=== PATIENT | male | born 1930 | race Caucasian/White ===

== ENCOUNTER → 2016-06-25 | Outpatient (CLI) | payer MEDICARE, BC ==
--- NOTE | 2016-06-25 14:40 | CT ---
"EXAMINATION TYPE: CT brain wo con DATE OF EXAM: 06/25/2016 2:33 PM COMPARISON: NONE HISTORY: F/U Intracerebral Hemorrhage CT DLP: 1029.9 mGycm Findings: Previous exam is performed at outside institution. There is no exam available for comparison at this institution. There is a 2.4 cm intraparenchymal hemorrhage involving the left frontal lobe. Encephalomalacia is se en in the region. Moderate generalized degenerative change and periventricular and white matter areas of low attenuation are nonspecific but most typical remote microvascular ischemia. No midline shift. Calvarium intact. IMPRESSION: 1. There is a 2.4 cm intraparenchymal acute hemorrhage in left frontal lobe. No prior exams are avail able at this institution for comparison. No midline shift. A Red message has been communicated to Lj Hager DO via the sofatutor | Critical Result s ystem on 06/25/2016 2:37 PM, Message ID [id number]."
== END | disposition home or self-care (01) ==
LOC: RADCTMAIN 13:54
PROVIDERS: ATTEND Family Medicine
DX: I61.9 Nontraumatic intracerebral hemorrhage, unspecified (principal)
CPT/HCPCS: 70450

== ENCOUNTER 2016-07-04 19:22 | Inpatient (IN) | payer MEDICARE, BC ==
[2016-07-04] MEDS ORDERED: SODIUM CHLORIDE 0.9% 1,000 ML IV STA (19:28)
--- NOTE | 2016-07-04 19:32 | ED ---
Chest Pain HPI - General Stated Complaint: chest pain Time Seen by Provider: 07/04/16 19:22 Source: patient, EMS, RN notes reviewed, old records reviewed Mode of arrival: EMS - History of Present Illness Initial Comments: This 86-year-old male with a history of CVA and hypertension who apparently had chest pain prior to admission the intermediate where he resides. He was given 2 subungual nitroglycerin and by time EMS showed up. No complaints of pain. Patient is most part nonverbal but apparently he did a chest clenching maneuver. He does have residual right upper and lower extremity weakness from his stroke. Also per paramedics the patient does have a Moss the urine is very concentrated and does have a followed are. MD Complaint: chest pain - Related Data Home Medications Medication Instructions Recorded Confirmed Acetaminophen Oral Susp [Tylenol 640 mg PEG/G-TUBE Q6H PRN 07/04/16 07/04/16 Oral Susp] Albuterol Sulfate [Accuneb] 0.63 mg INHALATION RT-Q6H 07/04/16 07/04/16 Bisacodyl [Dulcolax] 10 mg RECTAL Q72H PRN 07/04/16 07/04/16 Calcium Carbonate [Calcium] 600 mg PEG/G-TUBE DAILY 07/04/16 07/04/16 Cholecalciferol [Vitamin D3] 800 unit PEG/G-TUBE DAILY 07/04/16 07/04/16 Magnesium Hydroxide [Milk of 2,400 mg PEG/G-TUBE DAILY PRN 07/04/16 07/04/16 Magnesia] Metoprolol Tartrate [Lopressor] 50 mg PEG/G-TUBE BID 07/04/16 07/04/16 Pantoprazole Sodium [Protonix] 40 mg PEG/G-TUBE DAILY 07/04/16 07/04/16 Sennosides/Docusate Sodium 1 tab PEG/G-TUBE DAILY 07/04/16 07/04/16 [Docusate Sodium-Senna Tablet] Sucralfate [Carafate] 1 gm PEG/G-TUBE Q6H 07/04/16 07/04/16 levETIRAcetam [Keppra] 500 mg PEG/G-TUBE Q12HR 07/04/16 07/04/16 Allergies Allergy/AdvReac Type Severity Reaction Status Date / Time No Known Allergies Allergy Verified 07/04/16 19:43 Review of Systems ROS Statement: Those systems with pertinent positive or pertinent negative responses have been documented in the HPI. ROS Other: All systems not noted in ROS Statement are negative. EKG Findings - EKG Results: EKG: interpreted by ADRIAN, sinus rhythm (Sinus rhythm rate 77 appear of 01 72 QRS duration 94 QT/QTC of 378/427 over the inferior changes no acute ST-T wave elevations or depressions.) General Exam - General Exam Comments Initial Comments: Is a well-developed well-nourished awake but essentially nonverbal patient General appearance: alert, in no apparent distress Head exam: Present: atraumatic, normocephalic, normal inspection Eye exam: Present: normal appearance, PERRL, EOMI. Absent: scleral icterus, conjunctival injection, periorbital swelling ENT exam: Present: mucous membranes dry Neck exam: Present: normal inspection. Absent: tenderness, meningismus, lymphadenopathy Respiratory exam: Present: normal lung sounds bilaterally. Absent: respiratory distress, wheezes, rales, rhonchi, stridor Cardiovascular Exam: Present: regular rate, normal rhythm, normal heart sounds. Absent: systolic murmur, diastolic murmur, rubs, gallop, clicks GI/Abdominal exam: Present: soft, normal bowel sounds, other (PEG tube is in place no evidence of any infection or drainage). Absent: distended, tenderness , guarding, rebound, rigid Extremities exam: Present: normal inspection, full ROM, normal capillary refill. Absent: tenderness, pedal edema, joint swelling, calf tenderness Back exam: Present: normal inspection Neurological exam: Present: alert, altered, CN II-XII intact, motor sensory deficit (Right upper and lower extremity) Psychiatric exam: Present: normal mood, flat affect Skin exam: Present: warm, dry, intact, normal color. Absent: rash Course Vital Signs 07/04/16 07/04/16 07/04/16 20:08 20:44 21:44 Temperature 97.8 F 98.9 F Pulse Rate 74 74 77 Respiratory 16 16 16 Rate Blood Pressure 125/69 114/59 132/64 O2 Sat by Pulse 96 96 95 Oximetry 07/04/16 22:31 Temperature Pulse Rate 75 Respiratory 16 Rate Blood Pressure 124/83 O2 Sat by Pulse 96 Oximetry Chest Pain MDM - MDM I did review the x-ray there is evidence of a infiltrate. Please see the complete report by did discuss findings with the patient family members patient be admitted for treatment of pneumonia also urinary tract infection as suspected Disposition Clinical Impression: Pneumonia, Atypical chest pain, Urinary tract infection, Dehydration Disposition: ADMITTED IP TO THIS HOSP Condition: Stable
[2016-07-04 20:09] VITALS: RESP 16
[2016-07-04 20:10] LABS: Basophils % (A) 0 %; CH 32.5; CHCM 34.2; Eosinophils # (A) 0.3 k/uL (0-0.7); Eosinophils % (A) 2 %; HCT 47.9 % (39.0-53.0); HDW 2.68; Luc % (Auto) 2; Lymphocytes # (A) 1.7 k/uL (1.0-4.8); Lymphocytes % (A) 13 %; MCH 31.8 pg (25.0-35.0); MCHC 33.4 g/dL (31.0-37.0); MCV 95.4 fL (80.0-100.0); Mean Platelet Volume 7.8; Monocytes # (A) 0.7 k/uL (0-1.0); Monocytes % (A) 6 %; Neutrophils # (A) 9.9 k/uL (1.3-7.7); Neutrophils % (A) 77 %; RBC 5.02 m/uL (4.30-5.90); RDW 13.1 % (11.5-15.5); WBC 12.8 k/uL (3.8-10.6)
--- NOTE | 2016-07-04 20:18 | XR ---
EXAMINATION TYPE: XR chest 2V DATE OF EXAM: 07/04/2016 8:07 PM COMPARISON: None HISTORY: 86-year-old male with chest pain TECHNIQUE: Frontal and lateral views FINDINGS: Heart is upper limits of normal in size. Aorta within normal limits. Mild diffuse interstitial promin ence. There is some patchy posterior basilar opacity with trace effusions. IMPRESSION: Correlate to exclude mild CHF. There is some patchy posterior basilar opacity that could represent at electasis or early infiltrate. Trace effusions.
[2016-07-04 20:19] LABS: ALT 67 U/L (21-72); AST 34 U/L (17-59); Alkaline Phosphatase 64 U/L (38-126); Amylase 49 U/L (30-110); Anion Gap 8 mmol/L; Blood Urea Nitrogen 21 mg/dL (9-20); Calcium 9.3 mg/dL (8.4-10.2); Carbon Dioxide 27 mmol/L (22-30); Chloride 100 mmol/L (98-107); Glucose 112 mg/dL (74-99); Non-African American GFR(MDRD) >60 (>60 ml/min/1.73 sqM); Sodium 135 mmol/L (137-145); Total Protein 6.5 g/dL (6.3-8.2)
[2016-07-04 20:22] LABS: Amorphous Sediment,Urine Rare /hpf; Appearance,Urine Cloudy (Clear); Bacteria,Urine Moderate /hpf; Bilirubin,Urine Negative (Negative); Glucose,Urine (UA) Negative (Negative); Ketones,Urine Negative (Negative); Leukocyte Esterase,Urine Large (Negative); Mucus,Urine Many /hpf; Nitrite,Urine Negative (Negative); PH, Urine 6.5 (5.0-8.0); Particle Count 40225; Protein,Urine 2+ (Negative); RBC,Urine >182 /hpf (0-5); Specific Gravity,Urine 1.021 (1.001-1.035); UA Billing (MACRO vs. MICRO) MICRO; WBC,Urine >182 /hpf (0-5)
[2016-07-04 20:23] LABS: Potassium 4.7 mmol/L (3.5-5.1)
[2016-07-04 20:28] LABS: Creatine Kinase 35 U/L (55-170)
[2016-07-04 20:41] LABS: Creatine Kinase MB 1.3 ng/mL (0.0-2.4); Troponin I <0.012 ng/mL (0.000-0.034)
[2016-07-04 21:02] LABS: INR 1.2 (<1.1); Prothrombin Time 11.6 sec (9.0-12.0)
[2016-07-04] MEDS ORDERED: PIPERACILLIN-TAZOBACTAM 3.375 GM in DEXTROSE/WATER 1 50ML.BAG IVPB STA (22:31)
[2016-07-04] MEDS ORDERED: LEVOFLOXACIN 750MG-D5W PMX 750 MG in DEXTROSE/WATER 1 150ML.BAG IVPB STA (23:02)
[2016-07-04] MEDS ORDERED: PNEUMONIA PROTOCOL UTILIZED 1 EACH MISC PO PRN (23:02)
[2016-07-04] MEDS ORDERED: MAGNESIUM HYDROXIDE 2,400 MG/10 ML CUP PEG/G-TUBE PRN (23:06)
[2016-07-04] MEDS ORDERED: BISACODYL 10 MG SUPP RECTAL PRN (23:06)
[2016-07-04] MEDS ORDERED: ACETAMINOPHEN ORAL SUSP 160 MG/5 ML CUP PEG/G-TUBE PRN (23:06)
[2016-07-05] MEDS ORDERED: IPRATROPIUM-ALBUTEROL 3 ML NEB INHALATION SCH
[2016-07-05] MEDS: SODIUM CHLORIDE 0.9% 1,000 ML IV SCH ×2 (02:03→09:39)
[2016-07-05] MEDS: SUCRALFATE 1 GM TAB PEG/G-TUBE SCH ×3 (05:27→09:36)
[2016-07-05 07:31] VITALS: BP 119/58; TEMP 97.2
[2016-07-05] MEDS: IPRATROPIUM-ALBUTEROL 3 ML NEB INHALATION SCH ×2 (07:58→11:48)
[2016-07-05] MEDS ORDERED: PIPERACILLIN-TAZOBACTAM 3.375 GM in DEXTROSE/WATER 1 50ML.BAG IVPB SCH (08:00)
[2016-07-05] MEDS ORDERED: CALCIUM CARBONATE LIQUID 500 MG/5 ML CUP PEG/G-TUBE SCH (09:00)
[2016-07-05] MEDS ORDERED: CHOLECALCIFEROL 400 UNIT TAB PEG/G-TUBE SCH (09:00)
[2016-07-05] MEDS ORDERED: PANTOPRAZOLE 40 MG TABLET PO SCH (09:00)
[2016-07-05] MEDS ORDERED: levETIRAcetam 500 MG TAB PEG/G-TUBE SCH (09:00)
[2016-07-05] MEDS ORDERED: METOPROLOL TARTRATE 50 MG TAB PEG/G-TUBE SCH (09:00)
[2016-07-05 11:48] VITALS: PULSE 88
--- NOTE | 2016-07-05 12:43 | HP ---
DATE OF ADMISSION: Chief complaint is chest pain. HISTORY OF PRESENT ILLNESS: Mr. Dobbins is an 86-year-old male with a known history of hypertension, recent hemorrhagic CVA, was sent from rehab center as the patient was complaining of chest pain prior to admission at the [facility]way where he resides. Patient was given 2 tablets of sublingual nitroglycerin by the time EMS showed up. Patient denied any complaints of chest pain by the time EMS was there and patient was brought to the hospital for further evaluation. Patient is nonverbal but he did a chest clinching manual. Patient did not have any fever or chills recently. Patient does have a residual right upper and lower extremity weakness from his recent CVA. Patient also having swallowing difficulty and is on PEG tube and patient on chronic Moss catheter. Denied any abdominal pain. No nausea or vomiting. Patient otherwise, could not provide any history at this time, most of the history was taken from the medical charts and family at bedside. Complete review of systems could not be obtained from the patient. Past medical history includes hypertension and recent CVA in May 2016 hemorrhagic. PAST SURGICAL HISTORY: Could not be obtained from the patient now. FAMILY HISTORY: No history of hypertension or diabetes mellitus as per the family. SOCIAL HISTORY: Could not be obtained from the patient. ALLERGIES: No known drug allergies. Home medications include: 1. Tylenol. 2. Albuterol sulfate. 3. Dulcolax. 4. Calcium. 5. Vitamin D3. 6. Magnesium hydroxide. 7. Metoprolol. 8. Protonix. 9. Sennosides. 10. Docusate. 11. Sucralfate. 12. Keppra. PHYSICAL EXAMINATION: An 86-year-old male lying in the bed. Awake, alert, oriented x1, appears to be in no apparent distress. VITALS: On admission, blood pressure is 125/69, pulse is 74, respirations 16, temperature afebrile, pulse ox 96% on 2 L nasal cannula. Currently saturating well on room air at 94%. HEENT: Atraumatic, normocephalic. Neck is supple. No JVD. CVS EXAM: S1, S2 heard. No murmurs, no gallop. LUNGS: Bilateral air entry is present, decubitus breath sounds bilateral basally and nonlabored breathing. No wheezing. Abdomen is soft, nontender. Bowel sounds present. PITCH FLAKER: Awake, alert, oriented x1. Patient does have right-sided paralysis from previous CVA and patient is bedridden. EXTREMITIES: No edema. Pulses palpable bilaterally. No clubbing or cyanosis. PSYCHIATRIC: Cooperative. Could not be assessed completely. LABORATORY DATA: WBC 12.8, hemoglobin 16.0, platelets 93, INR is 1.2. Sodium 133, potassium 4.7, chloride 100, bicarb is 27. BUN 21, creatinine 0.87. Blood sugar is 112. UA showed a little cloudy with large blood and large leukocyte esterase, nitrate negative and greater than 180 WBCs and greater than 182 RBCs and moderate bacteria and many mucoceles and cloudy. Urine culture is pending at this time. Blood culture negative so far. Troponin less than 0.012 and EKG in normal sinus rhythm. Chest x-ray, correlate to exclude mild CHF. There is some patchy posterior basilar opacity that could represent atelectasis or early infiltrate. IMPRESSION: 1. Chest pain most likely musculoskeletal in origin and possible atelectasis. 2. Bibasilar atelectasis, possible early infiltrate/pneumonia. 3. Suspected urinary tract infection in a patient with chronic Moss catheter and sent urine for culture report at this time. 4. Recent hemorrhagic cerebrovascular accident with right hemiplegia. 5. Hypertension, controlled. 6. Seizure prophylaxis. 7. Medical debility and bedridden. Currently undergoing PT, OT at rehab. 8. Hypovolemic hyponatremia. 9. Dehydration. 10. Mild leukocytosis of 12.8. DISCUSSION AND PLAN: An 86-year-old male with history of recent hemorrhagic CVA, admitted to the hospital with complaints of chest pain, likely due to atelectasis and musculoskeletal origin. Possible pneumonia. Will continue with the antibiotics in the form of levofloxacin at this time and follow up urine culture report and I did discuss with the family in detail at bedside. Further recommendations based on clinical course. Anticipate discharge back to half-way today.
--- NOTE | 2016-07-05 13:39 | XR ---
EXAMINATION TYPE: XR chest 2V DATE OF EXAM: 07/05/2016 1:30 PM COMPARISON: Prior chest x-ray from yesterday HISTORY: Pneumonia progress study TECHNIQUE: Frontal and lateral views of the chest are obtained. FINDINGS: There is no suspicious new focal air space opacity, pleural effusion, or pneumothorax seen . Suspect chronic parenchymal changes left lung base. The cardiac silhouette size is stable and withi n normal limits. The osseous structures are somewhat demineralized. Old right-sided rib fractures a re noted. IMPRESSION: Chronic changes without suspicious acute infiltrate.
--- NOTE | 2016-07-05 14:34 | DS ---
DATE OF ADMISSION: 07/04/2016 DATE OF DISCHARGE: 07/05/2016 DISCHARGE DIAGNOSES: 1. Chest pain, most likely musculoskeletal and possible bibasilar atelectasis. 2. Bibasilar atelectasis and possible pneumonia. 3. Suspect urinary tract infection in a patient with chronic Moss catheter, awaiting urine culture report. 4. Moss catheter has been replaced. 5. Recent hemorrhagic cerebrovascular accident with a right hemiplegia. 6. Hypertension, controlled. 7. Seizure prophylaxis. 8. Medical debility and bedridden. Currently undergoing PT, OT at rehab. 9. Hypovolemic hyponatremia. 10. Dehydration, continue with the IV fluids. 11. Mild leukocytosis. HOSPITAL COURSE: An 86-year-old male with a history of above medical problems and right-sided paralysis from recent hemorrhagic stroke. Came to the hospital with a complaint of chest pain. EKG and troponins are negative. Patient was found to have ( ) bibasilar atelectasis/early infiltrate. Patient was started on antibiotics in the form of Zosyn as well as levofloxacin while in the ER. Patient also found to have a possibly urinary tract infection from - abdominal sample in a patient with chronic indwelling Moss catheter. Patient was continued on antibiotics in the form of levofloxacin. Patient did improve clinically and denied any chest pain after he was admitted through the ER. Otherwise, patient will be continued on antibiotics in the form of levofloxacin for 7 days. Patient was also dehydrated when he was admitted, has elevated BUN level slightly and the patient was encouraged to continue the tube feeding and otherwise patient is clinically stable to be discharged back to extended care facility in stable condition. DISCHARGE PHYSICAL EXAMINATION: An 86-year-old man lying in bed. Awake, alert, oriented x1, appears to be in no apparent distress. Saturating well on room air. LABORATORY DATA: Reviewed. Discharge physical examination done. Discharge medications include: 1. Tylenol. 2. Lasix 40 mg via PEG tube q.6 hourly p.r.n. for pain. 3. Albuterol inhalation q.6 hourly p.r.n. for short of breath. 4. Dulcolax 10 mg rectal q.72 hours p.r.n. for constipation. 5. Calcium carbonate 600 mg via PEG tube daily. 6. Vitamin D3 800 units via PEG tube daily. 7. Milk of magnesia 240 mg PEG tube daily p.r.n. for constipation. 8. Metoprolol tartrate 50 mg PEG tube b.i.d. 9. Protonix 40 mg via PEG tube daily. 10. Sennosides and Docusate 1 tablet PEG tube daily. 11. Sucralfate 1 gm PEG tube q.6 hourly. 12. Keppra 400 mg via PEG tube q.12 hours. 13. Levofloxacin 750 mg via PEG tube q. 24 hours for 7 days and patient will follow up with Dr. jL Hager in 1 to 2 days. Please flush PEG tube with 250 mL of free water q.6 hourly. Otherwise, patient is stable for discharge to extended care facility. Activity as tolerated and heart-healthy diet. TIME TAKEN: More than 35 minutes including 18 minutes counseling the patient coordinating care.
[2016-07-05] MEDS ORDERED: LEVOFLOXACIN 750 MG TAB PO SCH (23:00)
== END 2016-07-05 15:30 | DRG 194 ==
LOC: EC 19:22 → 5MS5E 23:02
PROVIDERS: ADMIT Internal Medicine; ATTEND Internal Medicine
PROC: 0T9B70Z Drainage of Bladder with Drainage Device, Via Natural or Artificial Opening (ICD-10-PCS; principal; 2016-07-05)
DX: J18.9 Pneumonia, unspecified organism (principal); I69.351 Hemiplegia and hemiparesis following cerebral infarction affecting right dominant side; Z93.1 Gastrostomy status; E87.1 Hypo-osmolality and hyponatremia; R13.10 Dysphagia, unspecified; T83.511A Infection and inflammatory reaction due to indwelling urethral catheter, initial encounter; N39.0 Urinary tract infection, site not specified; J98.11 Atelectasis; R07.89 Other chest pain; E86.0 Dehydration; E86.1 Hypovolemia; I10 Essential (primary) hypertension; R53.81 Other malaise; D72.829 Elevated white blood cell count, unspecified; R94.4 Abnormal results of kidney function studies; Z79.899 Other long term (current) drug therapy; Z74.01 Bed confinement status
CPT/HCPCS: 36415; 71020; 80053; 81001; 82150; 82550; 82553; 83690; 83735; 83880; 84484; 85025; 85610; 85730; 87040; 87077; 87186; 93005; 94640; 94760; 96361; 96365; 99285

== ENCOUNTER → 2016-07-27 | Outpatient (CLI) | payer MEDICARE, BC ==
--- NOTE | 2016-07-27 12:58 | FL ---
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 Currentl y on. Consistency. TECHNIQUE: Deglutition study is performed utilizing thin liquid barium, honey and nectar thick liqui d barium, barium thick applesauce, and barium coated cracker. Total fluoroscopy time: 3 minutes 31 seconds. COMPARISON: None. FINDINGS: There is oral motor incoordination with tongue pumping causing delayed swallowing. A couple episodes of superficial penetration are noted with thin liquids. There are moderate vallecular residuals with solids and difficulty clearing due to limited tongue mobility. A liquid wash succeeds in clearing the residuals. No deep penetration or aspiration is seen. IMPRESSION: No deep penetration or aspiration. Motor incoordination causing delayed swallowing. Moderate residual s with solids. Please refer to speech therapist notes for further details if necessary.
== END | disposition home or self-care (01) ==
LOC: RADFLMAIN 11:05
PROVIDERS: ATTEND Family Medicine
DX: R13.10 Dysphagia, unspecified (principal)
CPT/HCPCS: 74230

== ENCOUNTER → 2016-08-27 | Outpatient (CLI) | payer MEDICARE, BC ==
--- NOTE | 2016-08-27 13:39 | CT ---
EXAMINATION TYPE: CT brain wo con DATE OF EXAM: 08/27/2016 1:29 PM COMPARISON: 06/25/2016 HISTORY: Intracranial hemorrhage CT DLP: [address] of the brain was performed. The ventricles, basal cisterns and sulci overlying the cerebral convexities demonstrate mild enlargem ent. Moderate to large sized area of encephalomalacia left frontal lobe at the site of previous intra parenchymal hemorrhage. No residual or acute hemorrhage is identified at this time. There is no evidence for intracranial hemorrhage or sulcal effacement. There is decreased attenuation about the periventricular white matter and deep white matter of both c erebral hemispheres, compatible with chronic small vessel ischemia. Differential diagnosis does inclu de demyelination. No mass effects are seen.No midline shift. Osseous calvarium is intact. If symptoms persist consider MRI. IMPRESSION: 1. Age related atrophic and chronic small vessel ischemic change without acute intracranial process s een at this time. Resolution of previously noted left frontal parenchymal hemorrhage.
== END | disposition home or self-care (01) ==
LOC: RADCTMAIN 12:51
PROVIDERS: ATTEND Specialist
DX: G31.1 Senile degeneration of brain, not elsewhere classified (principal); I67.82 Cerebral ischemia
CPT/HCPCS: 70450

== ENCOUNTER 2016-09-16 06:47 | Day surgery (SDC) | payer MEDICARE, BC ==
[2016-09-13 11:17] VITALS: BMI 21.2
[~2016-09-16 06:47] MED LIST: LACTATED RINGERS 1,000 ML IV SCH
[2016-09-16 07:14] VITALS: RESP 16; TEMP 97.1
[2016-09-16] MEDS ORDERED: LIDOCAINE 1% INJ 10MG/ML (20 ML MDV) ONE (08:12)
[2016-09-16] MEDS ORDERED: PROPOFOL 10 MG/ML 20 ML VIAL IV ONE (08:12)
[2016-09-16 08:34] VITALS: PULSE 59
--- NOTE | 2016-09-16 08:38 | P.PCN ---
Date of Procedure: 09/16/16 Procedure(s) Performed: Procedure: PEG tube removal. Preoperative diagnosis: History of CVA with pre-esophageal dysphagia requiring PEG tube feeding. Postoperative diagnosis: Successful removal of feeding tube with gentle traction after sedation. Preparation and sedation: Was provided by anesthesia. Brief clinical history: The patient is an 86-year-old male who has been receiving nutritional support through a gastrostomy feeding tube since May 2016 following his CVA. The patient continues to reside at [facility] at this time but has been able to meet his nutritional needs with spontaneous oral intake. The patient is now referred for PEG tube removal. Procedure: With the patient in the supine position and after informed consent and adequate sedation, I was able to remove the gastrostomy feeding tube with gentle traction and it came out intact. No upper endoscopy was required. The site of the tube appeared healthy with no evidence of bleeding infection. It was cleansed and dressed. The patient tolerated the procedure well. Plan: The patient and family where reassured. He will be kept NPO for 2-4 hours then would have a liquid meal for his next meal. His diet can be advanced as tolerated after that.
[2016-09-16 08:52] VITALS: BP 116/62
== END 2016-09-16 09:20 ==
LOC: ORWHC2ENDO 06:47
DX: Z46.59 Encounter for fitting and adjustment of other gastrointestinal appliance and device (principal); R13.19 Other dysphagia; K21.9 Gastro-esophageal reflux disease without esophagitis; Z86.73 Personal history of transient ischemic attack (TIA), and cerebral infarction without residual deficits; Z79.899 Other long term (current) drug therapy; R26.2 Difficulty in walking, not elsewhere classified
CPT/HCPCS: 44799; J2001; J2704

== ENCOUNTER 2017-02-04 18:50 | Inpatient (IN) | payer MEDICARE, BC ==
[2017-02-04] MEDS ORDERED: SODIUM CHLORIDE 0.9% 1,000 ML IV STA (19:27)
--- NOTE | 2017-02-04 19:35 | ED ---
General Adult HPI - General Chief complaint: Shortness of Breath Stated complaint: Chest Pain Time Seen by Provider: 02/04/17 19:16 Source: patient, family Mode of arrival: wheelchair Limitations: no limitations - History of Present Illness Initial comments: This 87-year-old white male presents with a complaint of some dizziness. He describes it as a nonspinning lightheadedness. It apparently just started this morning. He normally walks with a walker but is now very unsteady with his gait. He denies any headaches, fevers, chills. He denies any chest pain. Despite nursing chief complaint, he denies any shortness of breath. The son does relate that he had an intracranial bleed back in May 30 of this past year and was treated at [facility]. From there, he went to an F, and is now and then adult foster alf. He gets all his medications dispensed to him so there has not been any alterations in his normal medications. He denies any cough or difficulty breathing. He denies any urinary symptoms. He denies any previous similar incidents. No other complaints or modifying factors. He is not on any blood thinners currently. - Related Data Home Medications Medication Instructions Recorded Confirmed Metoprolol Tartrate [Lopressor] 50 mg PO BID 07/04/16 02/04/17 Bisacodyl 10 mg RECTAL Q48H PRN 09/13/16 02/04/17 Cholecalciferol [Vitamin D3] 400 unit PO BID 09/13/16 02/04/17 Magnesium Hydroxide [Milk of 2,400 mg PO DAILY PRN 09/13/16 02/04/17 Magnesia] Acetaminophen Tab [Tylenol Tab] 325 mg PO Q6H PRN 02/04/17 02/04/17 Acetaminophen Tab [Tylenol Tab] 650 mg PO Q6H PRN 02/04/17 02/04/17 Calcium Carbonate/Vitamin D3 1 tab PO DAILY 02/04/17 02/04/17 [Calcium 600-Vit D3 800 Tab] Docusate [Colace] 100 mg PO DAILY 02/04/17 02/04/17 Famotidine [Pepcid] 40 mg PO DAILY PRN 02/04/17 02/04/17 levETIRAcetam [Keppra] 500 mg PO Q12H 02/04/17 02/04/17 Allergies Allergy/AdvReac Type Severity Reaction Status Date / Time No Known Allergies Allergy Verified 02/04/17 20:01 Review of Systems ROS Statement: Those systems with pertinent positive or pertinent negative responses have been documented in the HPI. ROS Other: All systems not noted in ROS Statement are negative. Past Medical History Past Medical History: CVA/TIA, Hypertension Additional Past Medical History / Comment(s): stroke May 30, 2016. wheelchair- generalized weakness. ambulates with walker, History of Any Multi-Drug Resistant Organisms: None Reported Past Surgical History: Prostate Surgery Additional Past Surgical History / Comment(s): . Past Anesthesia/Blood Transfusion Reactions: No Reported Reaction Additional Past Anesthesia/Blood Transfusion Reaction / Comment(s): no information at ECF Past Psychological History: No Psychological Hx Reported Smoking Status: Never smoker Past Alcohol Use History: None Reported Past Drug Use History: None Reported - Past Family History Mother Family Medical History: Unable to Obtain General Exam - General Exam Comments Initial Comments: GENERAL: The patient is well nourished and well hydrated. VITAL SIGNS: Heart rate, blood pressure, respiratory rate reviewed as recorded in nurse's notes. EYES: Pupils are round and reactive. Extraocular movements are intact. No conjunctival / lid redness or swelling. ENT: No external evidence of injury, swelling, or ecchymosis. Airway is patent. Throat is clear. NECK: Nontender. No swelling or evidence of injury. No subcutaneous emphysema. Trachea is midline. No thyroid mass. HEART: Regular rate and rhythm. Good peripheral pulses. LUNGS/CHEST: Breath sounds clear and equal bilaterally. No rales, rhonchi, or wheezes. No ecchymosis, subcutaneous emphysema, or tenderness. ABDOMEN: Abdomen soft without tenderness. No palpable masses or organomegaly. No peritoneal signs. No abdominal wall swelling or ecchymosis. EXTREMITIES: No extremity tenderness. Normal muscle tone and function. No thoracolumbar tenderness. NEUROLOGIC: Sensation is grossly intact. Cranial nerve exam reveals face is symmetrical, tongue is midline, speech is clear. SKIN: No abrasions or ecchymosis is noted. No induration or masses noted. PSYCHIATRIC: Alert and oriented. Appropriate behavior and judgment. Limitations: no limitations Course Vital Signs 02/04/17 02/04/17 02/04/17 19:04 20:25 20:50 Temperature 98.2 F 97.6 F Pulse Rate 52 L 53 L 55 L Respiratory 18 18 19 Rate Blood Pressure 175/79 161/70 167/70 O2 Sat by Pulse 97 100 96 Oximetry Medical Decision Making - Medical Decision Making The patient was seen and examined. All diagnostics were reviewed. He did receive some Antivert orally. The EKG was done and does show a sinus bradycardia at a rate of 53. There is no acute ST-T wave changes identified. The CA interval is 200, the QRS duration is 100, and the QTc interval is 405. The chest x-ray did not show any acute processes. The computed tomography scan of the brain did show the old infarcts but no acute process. The laboratory is unremarkable. The urinalysis does not show any evidence of infection. The exact cause of his dizziness and significant unsteadiness with ambulation is not definitively determined. He has no localizing signs of a CVA. Overall, it is felt as though he may benefit from further admission and neurologic workup. The patient and son are agreeable. The case will be discussed with internal medicine shortly and patient will be admitted to the hospital for further treatment. - Lab Data Result diagrams: 02/04/17 19:14 02/04/17 19:14 Lab Results 02/04/17 02/04/17 02/04/17 Range/Units 19:14 19:14 19:14 WBC 8.7 (3.8-10.6) k/uL RBC 5.56 (4.30-5.90) m/uL Hgb 17.4 (13.0-17.5) gm/dL Hct 51.7 (39.0-53.0) % MCV 93.0 (80.0-100.0) fL MCH 31.2 (25.0-35.0) pg MCHC 33.6 (31.0-37.0) g/dL RDW 14.2 (11.5-15.5) % Plt Count 209 (150-450) k/uL Neutrophils % 48 % Lymphocytes % 37 % Monocytes % 7 % Eosinophils % 4 % Basophils % 2 % Neutrophils # 4.2 (1.3-7.7) k/uL Lymphocytes # 3.2 (1.0-4.8) k/uL Monocytes # 0.6 (0-1.0) k/uL Eosinophils # 0.3 (0-0.7) k/uL Basophils # 0.2 (0-0.2) k/uL PT (9.0-12.0) sec INR (<1.2) APTT (22.0-30.0) sec Sodium 139 (137-145) mmol/L Potassium 4.2 (3.5-5.1) mmol/L Chloride 103 (98-107) mmol/L Carbon Dioxide 26 (22-30) mmol/L Anion Gap 10 mmol/L BUN 15 (9-20) mg/dL Creatinine 0.97 (0.66-1.25) mg/dL Est GFR (MDRD) Af Amer >60 (>60 ml/min/1.73 sqM) Est GFR (MDRD) Non-Af >60 (>60 ml/min/1.73 sqM) Glucose 83 (74-99) mg/dL Calcium 9.6 (8.4-10.2) mg/dL Phosphorus 3.7 (2.5-4.5) mg/dL Magnesium 2.0 (1.6-2.3) mg/dL Total Bilirubin 0.7 (0.2-1.3) mg/dL AST 23 (17-59) U/L ALT 36 (21-72) U/L Alkaline Phosphatase 47 (38-126) U/L Total Creatine Kinase 55 (55-170) U/L CK-MB (CK-2) 1.4 (0.0-2.4) ng/mL CK-MB (CK-2) Rel Index 2.5 Troponin I <0.012 (0.000-0.034) ng/mL Total Protein 7.1 (6.3-8.2) g/dL Albumin 4.3 (3.5-5.0) g/dL Urine Color Urine Appearance (Clear) Urine pH (5.0-8.0) Ur Specific Ivins (1.001-1.035) Urine Protein (Negative) Urine Glucose (UA) (Negative) Urine Ketones (Negative) Urine Blood (Negative) Urine Nitrite (Negative) Urine Bilirubin (Negative) Urine Urobilinogen (<2.0) mg/dL Ur Leukocyte Esterase (Negative) Urine RBC (0-5) /hpf Urine Bacteria (None) /hpf Urine Mucus (None) /hpf 02/04/17 02/04/17 Range/Units 19:14 20:19 WBC (3.8-10.6) k/uL RBC (4.30-5.90) m/uL Hgb (13.0-17.5) gm/dL Hct (39.0-53.0) % MCV (80.0-100.0) fL MCH (25.0-35.0) pg MCHC (31.0-37.0) g/dL RDW (11.5-15.5) % Plt Count (150-450) k/uL Neutrophils % % Lymphocytes % % Monocytes % % Eosinophils % % Basophils % % Neutrophils # (1.3-7.7) k/uL Lymphocytes # (1.0-4.8) k/uL Monocytes # (0-1.0) k/uL Eosinophils # (0-0.7) k/uL Basophils # (0-0.2) k/uL PT 11.4 (9.0-12.0) sec INR 1.1 (<1.2) APTT 24.2 (22.0-30.0) sec Sodium (137-145) mmol/L Potassium (3.5-5.1) mmol/L Chloride (98-107) mmol/L Carbon Dioxide (22-30) mmol/L Anion Gap mmol/L BUN (9-20) mg/dL Creatinine (0.66-1.25) mg/dL Est GFR (MDRD) Af Amer (>60 ml/min/1.73 sqM) Est GFR (MDRD) Non-Af (>60 ml/min/1.73 sqM) Glucose (74-99) mg/dL Calcium (8.4-10.2) mg/dL Phosphorus (2.5-4.5) mg/dL Magnesium (1.6-2.3) mg/dL Total Bilirubin (0.2-1.3) mg/dL AST (17-59) U/L ALT (21-72) U/L Alkaline Phosphatase (38-126) U/L Total Creatine Kinase (55-170) U/L CK-MB (CK-2) (0.0-2.4) ng/mL CK-MB (CK-2) Rel Index Troponin I (0.000-0.034) ng/mL Total Protein (6.3-8.2) g/dL Albumin (3.5-5.0) g/dL Urine Color Light Yellow Urine Appearance Clear (Clear) Urine pH 6.5 (5.0-8.0) Ur Specific Ivins 1.006 (1.001-1.035) Urine Protein Negative (Negative) Urine Glucose (UA) Negative (Negative) Urine Ketones Negative (Negative) Urine Blood Trace H (Negative) Urine Nitrite Negative (Negative) Urine Bilirubin Negative (Negative) Urine Urobilinogen <2.0 (<2.0) mg/dL Ur Leukocyte Esterase Negative (Negative) Urine RBC 2 (0-5) /hpf Urine Bacteria Rare H (None) /hpf Urine Mucus Rare H (None) /hpf Disposition Clinical Impression: Dizziness, Hypertension, Inability to walk Disposition: ADMITTED IP TO THIS [facility] Condition: Fair Time of Disposition: 20:54 Decision Date: 02/04/17 Decision Time: 20:54
[2017-02-04 19:38] LABS: Basophils # (A) 0.2 k/uL (0-0.2); Basophils % (A) 2 %; CHCM 35.6; Eosinophils # (A) 0.3 k/uL (0-0.7); Eosinophils % (A) 4 %; HCT 51.7 % (39.0-53.0); HGB 17.4 gm/dL (13.0-17.5); Luc # (Auto) 0.23; Luc % (Auto) 3; Lymphocytes # (A) 3.2 k/uL (1.0-4.8); Lymphocytes % (A) 37 %; MCH 31.2 pg (25.0-35.0); MCHC 33.6 g/dL (31.0-37.0); Mean Platelet Volume 7.9; Monocytes # (A) 0.6 k/uL (0-1.0); Monocytes % (A) 7 %; Neutrophils # (A) 4.2 k/uL (1.3-7.7); Neutrophils % (A) 48 %; RBC 5.56 m/uL (4.30-5.90); RDW 14.2 % (11.5-15.5); WBC 8.7 k/uL (3.8-10.6); WBC (Perox) 8.22
[2017-02-04 19:49] LABS: ALT 36 U/L (21-72); AST 23 U/L (17-59); Alkaline Phosphatase 47 U/L (38-126); Anion Gap 10 mmol/L; Blood Urea Nitrogen 15 mg/dL (9-20); Calcium 9.6 mg/dL (8.4-10.2); Carbon Dioxide 26 mmol/L (22-30); Chloride 103 mmol/L (98-107); Glucose 83 mg/dL (74-99); Non-African American GFR(MDRD) >60 (>60 ml/min/1.73 sqM); Phosphorous 3.7 mg/dL (2.5-4.5); Potassium 4.2 mmol/L (3.5-5.1); Sodium 139 mmol/L (137-145); Total Bilirubin 0.7 mg/dL (0.2-1.3); Total Protein 7.1 g/dL (6.3-8.2)
[2017-02-04 19:54] LABS: INR 1.1 (<1.2); Partial Thromboplastin Time 24.2 sec (22.0-30.0); Prothrombin Time 11.4 sec (9.0-12.0)
[2017-02-04 19:57] LABS: Creatine Kinase 55 U/L (55-170)
[2017-02-04 20:10] LABS: Creatine Kinase MB 1.4 ng/mL (0.0-2.4); Troponin I <0.012 ng/mL (0.000-0.034)
[2017-02-04] MEDS ORDERED: MECLIZINE 12.5 MG TAB PO STA ×2 (20:15→21:13)
--- NOTE | 2017-02-04 20:21 | CT ---
EXAMINATION TYPE: CT brain wo con DATE OF EXAM: 02/04/2017 COMPARISON: 08/27/2016 HISTORY: Weakness and dizziness. CT DLP: 1133.3 mGycm Automated exposure control for dose reduction was used. FINDINGS: There is diffuse cerebral cortical atrophy. There is no mass effect nor midline shift. There is no si gn of intracranial hemorrhage. There is wedge-shaped hypodensity in the medial left frontal lobe and also the left parietal lobe consistent with old cortical infarct. The calvarium is intact. There is p rominence of the ventricles. 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 NO ACUTE INTRACRANIAL ABNORMALITY. CEREBRAL ATROPHY. NO CHANGE.
--- NOTE | 2017-02-04 20:22 | XR ---
EXAMINATION TYPE: XR chest 2V DATE OF EXAM: 02/04/2017 COMPARISON: 07/05/2016 HISTORY: Difficulty breathing TECHNIQUE: Frontal and lateral views of the chest are obtained. FINDINGS: There is no heart failure nor confluent pneumonic infiltrate. Heart size is normal. There is no pleural effusion. Bony thorax is intact. IMPRESSION: No active cardiopulmonary disease. No change.
[2017-02-04 20:31] LABS: Appearance,Urine Clear (Clear); Bacteria,Urine Rare /hpf; Bilirubin,Urine Negative (Negative); Glucose,Urine (UA) Negative (Negative); Ketones,Urine Negative (Negative); Leukocyte Esterase,Urine Negative (Negative); Mucus,Urine Rare /hpf; Nitrite,Urine Negative (Negative); PH, Urine 6.5 (5.0-8.0); Particle Count 479; Protein,Urine Negative (Negative); RBC,Urine 2 /hpf (0-5); Specific Gravity,Urine 1.006 (1.001-1.035); UA Billing (MACRO vs. MICRO) MICRO; Urobilinogen,Urine <2.0 mg/dL (<2.0)
[2017-02-04] MEDS ORDERED: ACETAMINOPHEN TAB 325 MG TAB PO PRN (21:09)
[2017-02-04] MEDS ORDERED: NALOXONE 0.4 MG/ML 1 ML VIAL IV PRN (21:09)
[2017-02-04] MEDS ORDERED: ONDANSETRON 4 MG/2 ML VIAL IVP PRN (21:09)
[2017-02-04] MEDS ORDERED: MECLIZINE 25 MG TAB PO PRN (21:15)
[2017-02-04] MEDS ORDERED: FAMOTIDINE 20 MG TAB PO PRN (21:16)
[2017-02-04] MEDS ORDERED: MAGNESIUM HYDROXIDE 2,400 MG/10 ML CUP PO PRN (21:16)
[2017-02-04] MEDS ORDERED: BISACODYL 10 MG SUPP RECTAL PRN (21:16)
[2017-02-05 01:54] LABS: Creatine Kinase 56 U/L (55-170)
[2017-02-05 02:08] LABS: Creatine Kinase MB 1.3 ng/mL (0.0-2.4); Troponin I <0.012 ng/mL (0.000-0.034)
[2017-02-05 04:16] VITALS: BMI 20.3
[2017-02-05] MEDS: DOCUSATE 100 MG CAP PO SCH (07:23)
[2017-02-05] MEDS: CHOLECALCIFEROL 400 UNIT TAB PO SCH ×2 (07:23→21:04)
[2017-02-05] MEDS: CALCIUM CARB-VIT D 500MG-200UN 1 EACH TAB PO SCH (07:23)
[2017-02-05] MEDS: ENOXAPARIN 40 MG/0.4 ML SYRINGE SQ SCH (07:24)
[2017-02-05] MEDS: METOPROLOL TARTRATE 50 MG TAB PO SCH ×2 (07:24→21:04)
[2017-02-05 08:27] LABS: Creatine Kinase 54 U/L (55-170)
[2017-02-05 08:38] LABS: Creatine Kinase MB 1.4 ng/mL (0.0-2.4); Troponin I <0.012 ng/mL (0.000-0.034)
[2017-02-05] MEDS ORDERED: PANTOPRAZOLE 40 MG/10 ML VIAL IV SCH (09:00)
[2017-02-05] MEDS: levETIRAcetam 500 MG TAB PO SCH ×2 (13:42→15:16)
--- NOTE | 2017-02-05 14:54 | P.CONS ---
History of Present Illness - Reason for Consult Consult date: 02/05/17 Dizziness - History of Present Illness Is a pleasant 87-year-old male being evaluated by neurology service for dizziness. He initially described the ER is a nonspecific lightheadedness. But he does say there is some mild vertigo. He said it happens mostly when he stands. But it can happen at any time. It lasts for seconds to minutes. There is no associated headache nausea or vomiting. He usually walks with a walker but has noticed being a little more unsteady in the last day or so. In May of this year he was treated at [facility] ([place] for an intracranial bleed his CT showed no acute changes. It did show age-appropriate atrophy and an old left frontal and parietal area of infarct. His labs were relatively noncontributory his urinary also symptoms okay he was a little bradycardic in the ER. He is on metoprolol. His family say that he has no history of seizure disorder but was placed on Keppra following his incident in May. Her knowledge there was no witnessed seizure activity and he has had no seizure activity since. The time of my exam he is resting comfortably in bed eating his lunch with no obvious difficulty swallowing. Review of Systems All systems: negative Constitutional: Reports as per HPI Past Medical History Past Medical History: CVA/TIA, Hypertension Additional Past Medical History / Comment(s): stroke May 30, 2016. wheelchair- generalized weakness. ambulates with walker, History of Any Multi-Drug Resistant Organisms: None Reported Past Surgical History: Prostate Surgery Additional Past Surgical History / Comment(s): . Past Anesthesia/Blood Transfusion Reactions: No Reported Reaction Additional Past Anesthesia/Blood Transfusion Reaction / Comm: no information at [facility] Past Psychological History: No Psychological Hx Reported Smoking Status: Never smoker Past Alcohol Use History: None Reported Past Drug Use History: None Reported - Past Family History Mother Family Medical History: CVA/TIA Father Family Medical History: No Reported History, Unable to Obtain Medications and Allergies Home Medications Medication Instructions Recorded Confirmed Type Metoprolol Tartrate [Lopressor] 50 mg PO BID 07/04/16 02/04/17 History Bisacodyl 10 mg RECTAL Q48H PRN 09/13/16 02/04/17 History Cholecalciferol [Vitamin D3] 400 unit PO BID 09/13/16 02/04/17 History Magnesium Hydroxide [Milk of 2,400 mg PO DAILY PRN 09/13/16 02/04/17 History Magnesia] Acetaminophen Tab [Tylenol Tab] 325 mg PO Q6H PRN 02/04/17 02/04/17 History Acetaminophen Tab [Tylenol Tab] 650 mg PO Q6H PRN 02/04/17 02/04/17 History Calcium Carbonate/Vitamin D3 1 tab PO DAILY 02/04/17 02/04/17 History [Calcium 600-Vit D3 800 Tab] Docusate [Colace] 100 mg PO DAILY 02/04/17 02/04/17 History Famotidine [Pepcid] 40 mg PO DAILY PRN 02/04/17 02/04/17 History levETIRAcetam [Keppra] 500 mg PO Q12H 02/04/17 02/04/17 History Allergies Allergy/AdvReac Type Severity Reaction Status Date / Time No Known Allergies Allergy Verified 02/04/17 20:01 Physical Exam Vitals: Vital Signs Temp Pulse Pulse Resp BP BP BP 02/05/17 14:39 98.1 F 72 02/05/17 13:40 176/72 02/05/17 13:39 02/05/17 10:53 64 144/56 02/05/17 08:00 56 L 16 02/05/17 07:15 97.8 F 56 L 16 167/76 02/04/17 21:37 192/81 02/04/17 20:50 55 L 19 167/70 02/04/17 20:25 97.6 F 53 L 18 161/70 02/04/17 19:04 98.2 F 52 L 18 175/79 BP BP Pulse Ox 02/05/17 14:39 172/85 97 02/05/17 13:40 162/82 02/05/17 13:39 175/72 02/05/17 10:53 02/05/17 08:00 02/05/17 07:15 99 02/04/17 21:37 02/04/17 20:50 96 02/04/17 20:25 100 02/04/17 19:04 97 Intake and Output 02/04/17 02/05/17 02/05/17 22:59 06:59 14:59 Other: Voiding Method Urinal # Voids 2 Weight 68.039 kg 68.039 kg 68.039 kg Patient Weight 02/06/17 06:59 Weight 68.039 kg - Constitutional General appearance: average body habitus, cooperative, no acute distress - EENT Eyes: no abnormal pupil, EOMI, PERRLA, no ptosis ENT: hard of hearing - Neck Neck: normal ROM, no rigidity - Respiratory Respiratory: negative: prolonged expiration, prolonged inspiration - Cardiovascular Rhythm: regular - Gastrointestinal General gastrointestinal: no distended, no tenderness - Neurologic Patient is alert awake and oriented to person, partially to time, and partially to place. Is no facial asymmetry. Speech and language are normal. There is no lateralizing weakness. Sensory exam is normal in bilateral upper lower extremities. No tremors or seizure-like activities are seen Results CBC & Chem 7: 02/04/17 19:14 02/04/17 19:14 Labs: Abnormal Lab Results - Last 24 Hours (Table) 02/04/17 02/05/17 Range/Units 20:19 06:48 Total Creatine Kinase 54 L (55-170) U/L Urine Blood Trace H (Negative) Urine Bacteria Rare H (None) /hpf Urine Mucus Rare H (None) /hpf Assessment and Plan (1) Vertigo Status: Suspected (2) Dizziness Status: Acute (3) Hypertension Status: Chronic (4) History of stroke Status: Chronic Plan: At this point I am not very suspicious for any cerebrovascular etiology for his symptoms. His Keppra has been held and I do recommend discontinuing it is a possible cause for his dizziness. He has no history of seizures and was presumably placed on Keppra for preventative measures following his last incident in May. He is been started on Antivert which she thinks may be helping for the mild vertical his symptoms he was having. Recommend monitoring blood pressure and heart rate for possible orthostatic or cardiogenic etiologies for his dizziness. Physical therapy and speech therapy will be up to work with him. I have ordered an EEG. Continue neurological checks. We will continue to follow. I have reviewed the history and physical on the above patient. I have reviewed the above note, and agree.
--- NOTE | 2017-02-05 18:17 | P.HPIM ---
History of Present Illness H&P Date: 02/05/17 Chief Complaint: Dizziness This 87-year-old white male presents with a complaint of some dizziness. He describes it as a nonspinning lightheadedness. It apparently just started this morning. He normally walks with a walker but is now very unsteady with his gait. He denies any headaches, fevers, chills. He denies any chest pain. Despite nursing chief complaint, he denies any shortness of breath. The son does relate that he had an intracranial bleed back in May 30 of this past year and was treated at [facility]. From there, he went to an ECF, and is now and then [facility]. He gets all his medications dispensed to him so there has not been any alterations in his normal medications. He denies any cough or difficulty breathing. He denies any urinary symptoms. He denies any previous similar incidents. No other complaints or modifying factors. He is not on any blood thinners currently. Past Medical History Past Medical History: CVA/TIA, Hypertension Additional Past Medical History / Comment(s): stroke May 30, 2016. wheelchair- generalized weakness. ambulates with walker, History of Any Multi-Drug Resistant Organisms: None Reported Past Surgical History: Prostate Surgery Additional Past Surgical History / Comment(s): . Past Anesthesia/Blood Transfusion Reactions: No Reported Reaction Additional Past Anesthesia/Blood Transfusion Reaction / Comment(s): no information at F Past Psychological History: No Psychological Hx Reported Smoking Status: Never smoker Past Alcohol Use History: None Reported Past Drug Use History: None Reported - Past Family History Mother Family Medical History: CVA/TIA Father Family Medical History: No Reported History, Unable to Obtain Medications and Allergies Home Medications Medication Instructions Recorded Confirmed Type Metoprolol Tartrate [Lopressor] 50 mg PO BID 07/04/16 02/04/17 History Bisacodyl 10 mg RECTAL Q48H PRN 09/13/16 02/04/17 History Cholecalciferol [Vitamin D3] 400 unit PO BID 09/13/16 02/04/17 History Magnesium Hydroxide [Milk of 2,400 mg PO DAILY PRN 09/13/16 02/04/17 History Magnesia] Acetaminophen Tab [Tylenol Tab] 325 mg PO Q6H PRN 02/04/17 02/04/17 History Acetaminophen Tab [Tylenol Tab] 650 mg PO Q6H PRN 02/04/17 02/04/17 History Calcium Carbonate/Vitamin D3 1 tab PO DAILY 02/04/17 02/04/17 History [Calcium 600-Vit D3 800 Tab] Docusate [Colace] 100 mg PO DAILY 02/04/17 02/04/17 History Famotidine [Pepcid] 40 mg PO DAILY PRN 02/04/17 02/04/17 History levETIRAcetam [Keppra] 500 mg PO Q12H 02/04/17 02/04/17 History Allergies Allergy/AdvReac Type Severity Reaction Status Date / Time No Known Allergies Allergy Verified 02/04/17 20:01 Physical Exam Vitals: Vital Signs Temp Pulse Pulse Resp BP BP BP 02/05/17 16:00 72 16 02/05/17 14:39 98.1 F 72 02/05/17 13:40 176/72 02/05/17 13:39 02/05/17 10:53 64 144/56 02/05/17 08:00 56 L 16 02/05/17 07:15 97.8 F 56 L 16 167/76 02/04/17 21:37 192/81 02/04/17 20:50 55 L 19 167/70 02/04/17 20:25 97.6 F 53 L 18 161/70 02/04/17 19:04 98.2 F 52 L 18 175/79 BP BP Pulse Ox 02/05/17 16:00 02/05/17 14:39 172/85 97 02/05/17 13:40 162/82 02/05/17 13:39 175/72 02/05/17 10:53 02/05/17 08:00 02/05/17 07:15 99 02/04/17 21:37 02/04/17 20:50 96 02/04/17 20:25 100 02/04/17 19:04 97 Intake and Output 02/05/17 02/05/17 02/05/17 06:59 14:59 22:59 Other: Voiding Method Urinal Urinal # Voids 2 2 Weight 68.039 kg 68.039 kg 68.039 kg Patient Weight 02/06/17 06:59 Weight 68.039 kg In general patient is alert and oriented 3 in no apparent distress HEENT head normocephalic and atraumatic Neck is supple no JVD no goiter no lymphadenopathy Chest is clear to auscultation no wheezing Cardiac exam reveals regular heart sounds no murmurs Abdomen is soft nontender no organomegaly Extremity exam reveals no edema no cyanosis or clubbing Results CBC & Chem 7: 02/04/17 19:14 02/04/17 19:14 Labs: Abnormal Lab Results - Last 24 Hours (Table) 02/04/17 02/05/17 Range/Units 20:19 06:48 Total Creatine Kinase 54 L (55-170) U/L Urine Blood Trace H (Negative) Urine Bacteria Rare H (None) /hpf Urine Mucus Rare H (None) /hpf Thrombosis Risk Factor Assmnt - Choose All That Apply Each Risk Factor Represents 3 Points: Age 75 years or older Thrombosis Risk Factor Assessment Total Risk Factor Score: 3 Thrombosis Risk Factor Assessment Level: Moderate Risk Assessment and Plan Plan: #1 severe dizziness #2 gait disturbance due to dizziness with safety concerns regarding falls #3 underlying history of hypertension #4 history of intracranial bleeding in May of this year #5 patient has been maintained on Keppra since May, there is no history of seizure at any time, recommendation per neurology is to discontinue Keppra At this time will continue telemetry monitoring Will check echocardiogram and carotid Doppler will consult cardiology Will follow during this hospitalization closely
[2017-02-05] MEDS ORDERED: ALPRAZolam 0.25 MG TAB PO PRN (21:14)
[2017-02-06] MEDS: CHOLECALCIFEROL 400 UNIT TAB PO SCH ×2 (09:18→19:58)
[2017-02-06] MEDS: CALCIUM CARB-VIT D 500MG-200UN 1 EACH TAB PO SCH (09:18)
[2017-02-06] MEDS: ENOXAPARIN 40 MG/0.4 ML SYRINGE SQ SCH (09:19)
[2017-02-06] MEDS: DOCUSATE 100 MG CAP PO SCH (09:19)
[2017-02-06] MEDS: METOPROLOL TARTRATE 50 MG TAB PO SCH ×2 (09:20→19:58)
--- NOTE | 2017-02-06 10:39 | US ---
EXAMINATION TYPE: US carotid duplex BILAT DATE OF EXAM: 02/06/2017 COMPARISON: None. CLINICAL HISTORY: dizziness. Weakness. No hx of TIA. HTN. EXAM MEASUREMENTS: RIGHT: Peak Systolic Velocity (PSV) cm/sec ----- Right CCA: 101.6 ----- Right ICA: 72.3 ----- Right ECA: 91.4 ICA/CCA ratio: 0.7 RIGHT: End Diastole cm/sec ----- Right CCA: 0.0 ----- Right ICA: 0.0 ----- Right ECA: 0.0 LEFT: Peak Systolic Velocity (PSV) cm/sec ----- Left CCA: 88.7 ----- Left ICA: 72.4 ----- Left ECA: 91.8 ICA/CCA ratio: 0.8 LEFT: End Diastole cm/sec ----- Left CCA: 0.0 ----- Left ICA: 8.7 ----- Left ECA: 8.9 VERTEBRALS (direction of flow): Right Vertebral: Antegrade Left Vertebral: Antegrade Bilateral wall thickening. No significant stenosis, elevated velocities or plaque seen. IMPRESSION: I DO NOT SEE EVIDENCE OF A HEMODYNAMICALLY SIGNIFICANT STENOSIS IN EITHER CAROTID SYSTEM. Criteria for Assigning % of Stenosis / Diameter reduction (Estimation based on the indirect measurements of the internal carotid artery velocities (ICA PSV). 1. Normal (no stenosis)=ICA PSV < 125 cm/s: ratio < 2.0: ICA EDV<40 cm/s. 2. Less than 50% stenosis=ICA PSV < 125 cm/s: ratio < 2.0: ICA EDV<40 cm/s. 3. 50 to 69% stenosis=ICA PSV of 125 to 230 cm/s: ration 2.0 ? 4.0: ICA EDV 40-100 cm/s. 4. Greater than 70% stenosis to near occlusion= ICA PSV > 230 cm/s: ratio > 4.0: ICA EDV > 100 cm/s. 5. Near occlusion= ICA PSV velocities may be low or undetectable: variable ratio and ICA EDV. 6. Total occlusion=unable to detect flow.
--- NOTE | 2017-02-06 12:59 | P.PN ---
Subjective Principal diagnosis: Dizziness Is a pleasant 87-year-old male continuing be evaluated by the neurology service for dizziness. Since yesterday he says his vertigo has mostly resolved. His lightheaded and dizziness is only upon standing. He reports no new neurological symptoms. Recall that his CT of the brain showed no acute changes. He does have a history of intracranial bleed about a year ago. There is no evidence that this is progressed. Recall that he has been a little bradycardic, but nurse reports that his orthostatics were relatively normal. Also recall that he has no history of seizure disorder but was likely placed on Keppra after his incident in May. He has had no seizure activity so Keppra has been discontinued. There has been no seizure activity since his admission. At the time my exam he is resting comfortably he is sitting up in his bedside chair eating lunch in no distress. Objective - Vital Signs Vital signs: Vital Signs Temp 97.3 F L 02/06/17 07:00 Pulse 72 02/06/17 08:00 Resp 16 02/06/17 08:00 BP 164/68 02/06/17 07:00 Pulse Ox 97 02/06/17 07:00 Intake & Output 02/05/17 02/06/17 02/06/17 18:59 06:59 18:59 Intake Total 360 Balance 360 Weight 68.039 kg Intake: Intake, IV Titration 160 Amount Sodium Chloride 0.9% 1, 160 000 ml @ 100 mls/hr IV . Q10H STA Rx#:[id number] Other 200 Other: Voiding Method Urinal Urinal # Voids 2 3 - Constitutional General appearance: Present: average body habitus, cooperative, no acute distress - EENT Eyes: Present: EOMI, PERRLA. Absent: abnormal pupil, ptosis ENT: Present: hard of hearing - Neck Neck: Present: normal ROM. Absent: rigidity - Respiratory Respiratory: negative: prolonged expiration, prolonged inspiration - Cardiovascular Rhythm: regular - Neurologic Neurologic Comment(s): Patient is alert awake and oriented 3. Speech and language are normal. Is no facial asymmetry. There is no sensory deficit. No tremors or seizure-like activities are seen. There is no lateralizing weakness. - Labs CBC & Chem 7: 02/04/17 19:14 02/04/17 19:14 Assessment and Plan (1) Vertigo Status: Suspected (2) Dizziness Status: Acute (3) Hypertension Status: Chronic (4) History of stroke Status: Chronic Plan: I am not very suspicious for any cerebrovascular etiology for his symptoms. His Keppra has been held and I do recommend discontinuing it is a possible cause for his dizziness. He has no history of seizures and was presumably placed on Keppra for preventative measures following his last incident in May. He is been started on Antivert which she thinks may be helping for the mild vertical his symptoms he was having. Recommend continued following for cardiogenic etiologies for his dizziness. Physical therapy and speech therapy will be up to work with him. Barring any unforeseen abnormalities on his EEG he would be cleared from a neurological standpoint. I have reviewed the history and physical on the above patient. I have reviewed the above note, and agree.
--- NOTE | 2017-02-06 15:07 | P.PN ---
Subjective This 87-year-old white male presents with a complaint of some dizziness. He describes it as a nonspinning lightheadedness. It apparently just started this morning. He normally walks with a walker but is now very unsteady with his gait. He denies any headaches, fevers, chills. He denies any chest pain. Despite nursing chief complaint, he denies any shortness of breath. On 02/06/2017 Today patient is sitting up in a chair, he is still complaining of dizziness no chest pain no shortness of breath Objective - Vital Signs Vital signs: Vital Signs Temp 97.3 F L 02/06/17 07:00 Pulse 72 02/06/17 08:00 Resp 16 02/06/17 08:00 BP 164/68 02/06/17 07:00 Pulse Ox 97 02/06/17 07:00 Intake & Output 02/05/17 02/06/17 02/06/17 18:59 06:59 18:59 Intake Total 360 300 Output Total 400 Balance 360 -100 Weight 68.039 kg Intake: Intake, IV Titration 160 Amount Sodium Chloride 0.9% 1, 160 000 ml @ 100 mls/hr IV . Q10H STA Rx#:[id number] Oral 300 Other 200 Output: Urine 400 Other: Voiding Method Urinal Urinal # Voids 2 3 - Exam In general patient is alert and oriented 3 in no apparent distress HEENT head normocephalic and atraumatic Neck is supple no JVD no goiter no lymphadenopathy Chest is clear to auscultation no wheezing Cardiac exam reveals regular heart sounds no murmurs Abdomen is soft nontender no organomegaly Extremity exam reveals no edema no cyanosis or clubbing - Labs CBC & Chem 7: 02/04/17 19:14 02/04/17 19:14 Assessment and Plan Plan: #1 severe dizziness #2 gait disturbance due to dizziness with safety concerns regarding falls #3 underlying history of hypertension #4 history of intracranial bleeding in May of this year #5 patient has been maintained on Keppra since May, there is no history of seizure at any time, recommendation per neurology is to discontinue Keppra At this time will continue telemetry monitoring Will check echocardiogram and carotid Doppler will consult cardiology, awaiting input will follow in a.m. Will follow during this hospitalization closely
[2017-02-06] MEDS: LISINOPRIL 10 MG TAB PO SCH (16:27)
[2017-02-07] MEDS: METOPROLOL TARTRATE 50 MG TAB PO SCH (08:51)
[2017-02-07] MEDS: ENOXAPARIN 40 MG/0.4 ML SYRINGE SQ SCH (08:52)
[2017-02-07] MEDS: CHOLECALCIFEROL 400 UNIT TAB PO SCH ×2 (08:52→19:57)
[2017-02-07] MEDS: CALCIUM CARB-VIT D 500MG-200UN 1 EACH TAB PO SCH (08:52)
[2017-02-07] MEDS: DOCUSATE 100 MG CAP PO SCH (08:52)
[2017-02-07] MEDS: LISINOPRIL 10 MG TAB PO SCH (08:53)
--- NOTE | 2017-02-07 11:40 | ECHOF ---
Referral Reason:dizziness MEASUREMENTS -------- HEIGHT: 180.3 cm WEIGHT: 68.0 kg BP: 151/63 IVSd: 0.9 cm (0.6 - 1.1) LVIDd: 2.7 cm (3.9 - 5.3) LVPWd: 1.2 cm (0.6 - 1.1) IVSs: 1.4 cm LVIDs: 2.0 cm LVPWs: 1.4 cm Ao Diam: 3.5 cm (2.0 - 3.7) AV Cusp: 2.0 cm (1.5 - 2.6) LA Diam: 3.6 cm (2.7 - 3.8) MV E Harsha: 0.80 m/s MV DecT: 170 ms MV A Harsha: 0.86 m/s MV E/A Ratio: 0.93 RAP: 5.00 mmHg RVSP: 9.35 mmHg FINDINGS -------- Sinus rhythm. This was a technically difficult study with suboptimal views. Left ventricular wall thickness is normal. Overall left ventricular systolic function is low-normal with, an EF between 50 - 55 %. The RV was not well visualized. The left atrium was not well visualized. The right atrium was not well visualized. 1.5mg of Definity was utilized for enhancement of images The aortic valve was not well visualized. There is trace mitral regurgitation. Trace tricuspid regurgitation present. The right ventricular systolic pressure, as measured by Doppler, is 9.35mmHg. The pulmonic valve was not well visualized. The aortic root size is normal. CONCLUSIONS -------- 1. Sinus rhythm. 2. There is trace mitral regurgitation. 3. Trace tricuspid regurgitation present. 4. The right ventricular systolic pressure, as measured by Doppler, is 9.35mmHg. 5. The pulmonic valve was not well visualized. 6. The aortic root size is normal. 7. This was a technically difficult study with suboptimal views. 8. Left ventricular wall thickness is normal. 9. Overall left ventricular systolic function is low-normal with, an EF between 50 - 55 %. 10. The RV was not well visualized. 11. The left atrium was not well visualized. 12. The right atrium was not well visualized. 13. 1.5mg of Definity was utilized for enhancement of images 14. The aortic valve was not well visualized. FINANCIAL PLANNING ANALYST: Yoly Trinidad RDCS
--- NOTE | 2017-02-07 12:50 | P.PN ---
Subjective Patient was seen by me today for follow-up. He was sitting up in the chair. He denies dizziness or lightheadedness. Patient appeared slow and was responding to my questions with very brief answers. Family at bedside. No events reported by nursing staff. Objective - Vital Signs Vital signs: Vital Signs Temp 97.9 F 02/07/17 07:12 Pulse 57 L 02/07/17 07:12 Resp 16 02/07/17 07:12 BP 151/63 02/07/17 07:12 Pulse Ox 96 02/07/17 07:12 Intake & Output 02/06/17 02/07/17 02/07/17 18:59 06:59 18:59 Intake Total 300 400 Output Total 400 Balance -100 400 Weight 68.039 kg Intake: Oral 300 Other 400 Output: Urine 400 Other: Voiding Method Urinal # Voids 3 - Exam General: The patient is awake and alert, in no distress Eye: there is normal conjunctiva bilaterally. Neck: The neck is supple, there is no JVD. Cardiovascular: Normal S1-S2, no S3-S4, no murmurs. Respiratory: Lungs clear to auscultation bilaterally Gastrointestinal: Abdomen is soft, nontender Musculoskeletal: There is no pedal edema. Neurological:. Speech is normal. Skin: Skin is warm and dry - Labs CBC & Chem 7: 02/04/17 19:14 02/04/17 19:14 Assessment and Plan Plan: 1. Dizziness and lightheadedness, and exact etiology unclear. Now improved. 2. Gait disturbance with worsening weakness, awaiting PT/OT evaluation 3. Essential hypertension: Blood pressure within acceptable range 4. Sinus bradycardia may be attributed to beta blockers. I would decrease metoprolol dose to 25 mg twice a day 5. History of intracranial bleed in May of this year. Was on Keppra for seizure prophylaxis. Discontinued by neurology during this admission Today, I reviewed his medication list and lab work resolved. Computed tomography scan of the brain showed old left frontal and parietal lobe infarct. Echocardiogram showed preserved ejection fraction with no significant valvular abnormalities. Carotid Doppler showed no hemodynamically significant stenosis. Awaiting PT/OT evaluation. The patient possibly be discharged tomorrow.
--- NOTE | 2017-02-07 13:06 | P.CRDCN ---
History of Present Illness Consult date: 02/07/17 History of present illness: This is a 87-year-old pleasant male. He follows regularly with Dr. Sales as an outpatient. Past medical history significant for hypertension, CVA. We're being asked to see this patient in consultation for complaints of dizziness. In May 2016 he was treated for an intracranial bleed at [facility] and was started on Keppra. CT scan performed on this admission shows age-appropriate atrophy with an old left frontal and parietal area infarct. Upon examination the patient is seen resting comfortably in bed eating breakfast. He is in no acute distress. He denies symptoms of dizziness, chest pain, shortness of breath, palpitations or diaphoresis. It should be noted that he is a very poor historian. Nurse states this is his baseline mental status. There is no family present at the time of my exam, information was gathered from ER notes and other physician input. Dizziness is described as nonspinning lightheadedness that started Tuesday morning. He typically ambulates with a walker and was having some feeling of unsteadiness. Cardiac medications include Lopressor 50 mg by mouth twice a day. Blood pressure 151/63 with heart rate 57 this morning, he is afebrile since admission. EKG done shows sinus bradycardia, rate 56 beats per minute with no T-wave abnormality. Troponins are normal x 3, all other laboratory values are unremarkable. Chest x-ray showed no acute cardiopulmonary process. Carotid Doppler study was performed and indicates no significant stenosis. Review of Systems Unable to completely assess ROS due to altered mental status. Past Medical History Past Medical History: CVA/TIA, Hypertension Additional Past Medical History / Comment(s): stroke May 30, 2016. wheelchair- generalized weakness. ambulates with walker, History of Any Multi-Drug Resistant Organisms: None Reported Past Surgical History: Prostate Surgery Additional Past Surgical History / Comment(s): . Past Anesthesia/Blood Transfusion Reactions: No Reported Reaction Additional Past Anesthesia/Blood Transfusion Reaction / Comment(s): no information at F Past Psychological History: No Psychological Hx Reported Smoking Status: Never smoker Past Alcohol Use History: None Reported Past Drug Use History: None Reported - Past Family History Mother Family Medical History: CVA/TIA Father Family Medical History: No Reported History, Unable to Obtain Medications and Allergies Home Medications Medication Instructions Recorded Confirmed Type Metoprolol Tartrate [Lopressor] 50 mg PO BID 07/04/16 02/04/17 History Bisacodyl 10 mg RECTAL Q48H PRN 09/13/16 02/04/17 History Cholecalciferol [Vitamin D3] 400 unit PO BID 09/13/16 02/04/17 History Magnesium Hydroxide [Milk of 2,400 mg PO DAILY PRN 09/13/16 02/04/17 History Magnesia] Acetaminophen Tab [Tylenol Tab] 325 mg PO Q6H PRN 02/04/17 02/04/17 History Acetaminophen Tab [Tylenol Tab] 650 mg PO Q6H PRN 02/04/17 02/04/17 History Calcium Carbonate/Vitamin D3 1 tab PO DAILY 02/04/17 02/04/17 History [Calcium 600-Vit D3 800 Tab] Docusate [Colace] 100 mg PO DAILY 02/04/17 02/04/17 History Famotidine [Pepcid] 40 mg PO DAILY PRN 02/04/17 02/04/17 History levETIRAcetam [Keppra] 500 mg PO Q12H 02/04/17 02/04/17 History Allergies Allergy/AdvReac Type Severity Reaction Status Date / Time No Known Allergies Allergy Verified 02/04/17 20:01 Physical Exam Vitals: Vital Signs Temp Pulse Resp BP Pulse Ox 02/07/17 07:12 97.9 F 57 L 16 151/63 96 02/07/17 00:47 97.4 F L 56 L 16 140/60 95 02/06/17 20:00 98.2 F 59 L 18 126/51 96 02/06/17 16:00 57 L 16 02/06/17 15:37 57 L 153/70 Intake and Output 02/06/17 02/07/17 02/07/17 22:59 06:59 14:59 Intake Total 300 100 Balance 300 100 Intake: Other 300 100 Other: Voiding Method Urinal # Voids 3 3 Weight 68.039 kg GENERAL: Well-appearing, well-nourished and in no acute distress. NECK: Supple without JVD or thyromegaly. LUNGS: Breath sounds clear to auscultation bilaterally. Respiration equal and unlabored. No wheezes, rales or rhonchi. Diminished air entry. HEART: Regular rate and rhythm without murmurs, rubs or gallops. S1 and S2 heard. EXTREMITIES: Normal range of motion, no edema. No clubbing or cyanosis. Peripheral pulses intact and strong. Results 02/04/17 19:14 02/04/17 19:14 Current Medications Generic Name Dose Route Start Last Admin Trade Name Freq PRN Reason Stop Dose Admin Acetaminophen 650 mg 02/04/17 21:09 Tylenol Tab PO Q6HR PRN Mild Pain or Fever > 100.5 Alprazolam 0.25 mg 02/05/17 21:14 02/05/17 21:24 Xanax PO 0.25 mg Q4HR PRN Administration Agitation Bisacodyl 10 mg 02/04/17 21:16 Dulcolax RECTAL Q48H PRN Constipation Calcium Carbonate 1 each 02/05/17 09:00 02/07/17 08:52 Oscal 500+D PO 1 each DAILY [facility] Administration Cholecalciferol 400 unit 02/05/17 09:00 02/07/17 08:52 Vitamin D3 PO 400 unit BID [facility] Administration Docusate Sodium 100 mg 02/05/17 09:00 02/07/17 08:52 Colace PO 100 mg DAILY [facility] Administration Enoxaparin Sodium 40 mg 02/05/17 09:00 02/07/17 08:52 Lovenox SQ 40 mg DAILY [facility] Administration Famotidine 40 mg 02/04/17 21:16 Pepcid PO DAILY PRN Heartburn Lisinopril 10 mg 02/06/17 15:30 02/07/17 08:53 Zestril PO 10 mg DAILY [facility] Administration Magnesium Hydroxide 2,400 mg 02/04/17 21:16 Milk Of Magnesia PO DAILY PRN Constipation/Heartburn Meclizine HCl 25 mg 02/04/17 21:15 Antivert PO Q6H PRN dizziness Metoprolol Tartrate 50 mg 02/05/17 09:00 02/07/17 08:51 Lopressor PO 50 mg BID [facility] Administration Naloxone HCl 0.2 mg 02/04/17 21:09 Narcan IV Q2M PRN Opioid Reversal Ondansetron HCl 4 mg 02/04/17 21:09 Zofran IVP Q8HR PRN Nausea And Vomiting Intake and Output 02/06/17 02/07/17 02/07/17 22:59 06:59 14:59 Intake Total 300 100 Balance 300 100 Intake: Other 300 100 Other: Voiding Method Urinal # Voids 3 3 Weight 68.039 kg 02/04/17 19:14 02/04/17 19:14 EKG Interpretations (text) EKG indicates sinus bradycardia with no acute ST or T-wave abnormalities. Assessment and Plan Plan: ASSESSMENT 1. Dizziness with gait disturbance 2. Essential hypertension, uncontrolled 3. History of recent intracranial hemorrhage 4. Chest pain, atypical PLAN Obtain echocardiogram to assess LV function. EKG indicates sinus bradycardia. Heart rate maintained in the 50-70's on lopressor. There has been no episodes of extreme bradycardia less than 50's on serology teacher. We will check pro- BNP, TSH and free T4. Blood pressure was elevated on admission and lisinopril was added to his regimen per medicine. Thank you kindly for this consultation, we will continue to follow this pt and further recommendations will be based upon clinical course. Nurse Practitioner note has been reviewed, I agree with a documented findings and plan of care. Patient was seen and examined.
[2017-02-07] MEDS: METOPROLOL TARTRATE 25 MG TAB PO SCH (19:57)
--- NOTE | 2017-02-07 20:50 | EEG ---
ELECTROENCEPHALOGRAM REPORT DATE OF SERVICE: 02/07/2017. REASON FOR TESTING: Dizziness. DESCRIPTION OF PROCEDURE: This EEG was performed using a 21 channel digital electroencephalograph, following international 10-20 system. DESCRIPTION OF THE RECORDING: From the beginning of the tracing, with patient's eyes closed, the background rhythm was mostly consisting of 9 Hz alpha frequency in the posterior occipital leads. No obvious asymmetry is seen. Photic stimulation was performed with a minimal driving response seen. No pathological waves were elicited. Hyperventilation was not performed. Occasional movement artifacts and muscle artifacts are seen. Later in the tracing, the patient does reach stage II of sleep, and occasional sleep spindles are seen. No epileptiform discharges were seen. His EKG lead showed a regular rate and rhythm. INTERPRETATION: This asleep and awake EEG can be considered within normal limits. There is no asymmetry seen. No epileptiform discharges were noticed. The absence of epileptiform discharges does not rule out the diagnosis of epilepsy, therefore clinical correlation is recommended. NAE / MELQUIADES: [id number] /
[2017-02-08 07:26] VITALS: BP 136/66; PULSE 65; RESP 17; TEMP 97.9
[2017-02-08 07:45] LABS: Basophils # (A) 0.1 k/uL (0-0.2); Basophils % (A) 1 %; CH 32.7; CHCM 35.4; Eosinophils # (A) 0.3 k/uL (0-0.7); Eosinophils % (A) 3 %; HCT 46.2 % (39.0-53.0); HDW 2.49; HGB 15.7 gm/dL (13.0-17.5); Luc # (Auto) 0.24; Luc % (Auto) 3; Lymphocytes # (A) 3.2 k/uL (1.0-4.8); Lymphocytes % (A) 40 %; MCH 31.5 pg (25.0-35.0); MCV 92.9 fL (80.0-100.0); Mean Platelet Volume 7.8; Monocytes # (A) 0.7 k/uL (0-1.0); Monocytes % (A) 9 %; Neutrophils # (A) 3.7 k/uL (1.3-7.7); Neutrophils % (A) 45 %; RBC 4.97 m/uL (4.30-5.90); RDW 14.3 % (11.5-15.5); WBC 8.2 k/uL (3.8-10.6); WBC (Perox) 8.37
[2017-02-08 08:11] LABS: Anion Gap 7 mmol/L; Blood Urea Nitrogen 16 mg/dL (9-20); Calcium 9.1 mg/dL (8.4-10.2); Carbon Dioxide 27 mmol/L (22-30); Chloride 104 mmol/L (98-107); Glucose 81 mg/dL (74-99); Non-African American GFR(MDRD) >60 (>60 ml/min/1.73 sqM); Potassium 3.9 mmol/L (3.5-5.1); Sodium 138 mmol/L (137-145)
[2017-02-08] MEDS: LISINOPRIL 10 MG TAB PO SCH (10:14)
[2017-02-08] MEDS: METOPROLOL TARTRATE 25 MG TAB PO SCH (10:14)
[2017-02-08] MEDS: CHOLECALCIFEROL 400 UNIT TAB PO SCH (10:15)
[2017-02-08] MEDS: ENOXAPARIN 40 MG/0.4 ML SYRINGE SQ SCH (10:15)
[2017-02-08] MEDS: CALCIUM CARB-VIT D 500MG-200UN 1 EACH TAB PO SCH (10:15)
[2017-02-08] MEDS: DOCUSATE 100 MG CAP PO SCH ×2 (10:16→10:17)
--- NOTE | 2017-02-08 16:14 | P.DS ---
Providers Date of admission: 02/04/17 21:09 Attending physician: Sydney Méndez Consults: 02/04/17 21:11 Consult Physician Routine Consulting Provider: Aamir Abrams Consult Reason/Comments: dizziness, inability to ambulate Do you want consulting provider notified?: Yes 02/05/17 18:18 Consult Physician Routine Consulting Provider: Chyna Sales Consult Reason/Comments: dizziness Do you want consulting provider notified?: Yes Primary care physician: Sara Wing [facility] Course: This is a 87-year-old gentleman with past medical history noted below who presented to the hospital with worsening dizziness. Patient was evaluated in the emergency room and computed tomography scan of the brain showed no acute findings but evidence of old infarct. Patient was admitted to the hospital and was seen and evaluated by neurology and cardiology. He was noted to be slightly bradycardic that was attributed to beta blockers and metoprolol dose was decreased to 25 mg twice a day. He underwent echocardiogram and carotid Doppler that were essentially within normal range. He also had an EEG as ordered by neurology that was normal for his age. Patient orthostatic blood pressure was negative. He was able to get up and ambulate with physical therapy. He was started on Antivert as a trial for suspected benign vertigo to be used as needed. Family at bedside. He would be discharged in a stable condition. He will return to the assisted living facility where he resides chronically. 1. Dizziness and lightheadedness, and exact etiology unclear. Now improved. 3. Essential hypertension: Blood pressure not well controlled on presentation. Lisinopril 10 mg daily added to his regimen. 4. Sinus bradycardia may be attributed to beta blockers. I would decrease metoprolol dose to 25 mg twice a day 5. History of intracranial bleed in May of this year. Was on Keppra for seizure prophylaxis. Discontinued by neurology during this admission Patient Condition at Discharge: Fair Plan - Discharge Summary New Discharge Prescriptions: New Lisinopril [Zestril] 10 mg PO DAILY #30 tab Meclizine [Antivert] 25 mg PO TID PRN #60 tab PRN Reason: dizziness Metoprolol Tartrate [Lopressor] 25 mg PO BID #60 tab Continue Magnesium Hydroxide [Milk of Magnesia] 2,400 mg PO DAILY PRN PRN Reason: Constipation/Heartburn Cholecalciferol [Vitamin D3] 400 unit PO BID Acetaminophen Tab [Tylenol] 650 mg PO Q6H PRN PRN Reason: Moderate Pain Calcium Carbonate/Vitamin D3 [Calcium 600-Vit D3 800 Tab] 1 tab PO DAILY Docusate [Colace] 100 mg PO DAILY Famotidine [Pepcid] 40 mg PO DAILY PRN PRN Reason: Heartburn Discontinued Metoprolol Tartrate [Lopressor] 50 mg PO BID Bisacodyl 10 mg RECTAL Q48H PRN PRN Reason: Constipation Acetaminophen Tab [Tylenol Tab] 325 mg PO Q6H PRN PRN Reason: Mild Pain levETIRAcetam [Keppra] 500 mg PO Q12H Discharge Medication List Cholecalciferol [Vitamin D3] 400 unit PO BID 09/13/16 [History] Magnesium Hydroxide [Milk of Magnesia] 2,400 mg PO DAILY PRN 09/13/16 [History] Acetaminophen Tab [Tylenol] 650 mg PO Q6H PRN 02/04/17 [History] Calcium Carbonate/Vitamin D3 [Calcium 600-Vit D3 800 Tab] 1 tab PO DAILY [History] Docusate [Colace] 100 mg PO DAILY 02/04/17 [History] Famotidine [Pepcid] 40 mg PO DAILY PRN 02/04/17 [History] Lisinopril [Zestril] 10 mg PO DAILY #30 tab 02/08/17 [Rx] Meclizine [Antivert] 25 mg PO TID PRN #60 tab 02/08/17 [Rx] Metoprolol Tartrate [Lopressor] 25 mg PO BID #60 tab 02/08/17 [Rx] Follow up Appointment(s)/Referral(s): Chyna Sales MD [STAFF PHYSICIAN] - 2 Weeks Sara Wing MD [Primary Care Provider] - 1 Week Discharge Disposition: HOME WITH HOME HEALTH SERVICES
== END 2017-02-08 18:13 | disposition home or self-care (01) | DRG 149 ==
LOC: EC 18:50 → 3SUR 21:09
PROVIDERS: ADMIT Internal Medicine; ATTEND Internal Medicine
DX: R42 Dizziness and giddiness (principal); R00.1 Bradycardia, unspecified; I69.298 Other sequelae of other nontraumatic intracranial hemorrhage; I10 Essential (primary) hypertension; R07.89 Other chest pain; Z79.899 Other long term (current) drug therapy; T44.7X5A Adverse effect of beta-adrenoreceptor antagonists, initial encounter; Y92.009 Unspecified place in unspecified non-institutional (private) residence as the place of occurrence of the external cause
CPT/HCPCS: 36415; 70450; 71020; 80048; 80053; 81001; 82550; 82553; 83735; 83880; 84100; 84439; 84443; 84484; 85025; 85610; 85730; 93005; 93306; 93880; 94760; 95819; 96360; 96361; 99285

== ENCOUNTER 2017-06-13 13:13 | Observation (INO) | payer MEDICARE, BC ==
[2017-06-13] MEDS ORDERED: SODIUM CHLORIDE 0.9% 1,000 ML IV STA (13:26)
[2017-06-13] MEDS ORDERED: levETIRAcetam IV 1,000 MG in SALINE 1 100ML.BAG IVPB STA (13:26)
[2017-06-13 14:21] LABS: Basophils # (A) 0.1 k/uL (0-0.2); Basophils % (A) 1 %; Eosinophils # (A) 0.3 k/uL (0-0.7); Eosinophils % (A) 3 %; HGB 16.4 gm/dL (13.0-17.5); Lymphocytes % (A) 21 %; MCH 31.7 pg (25.0-35.0); MCHC 33.5 g/dL (31.0-37.0); MCV 94.6 fL (80.0-100.0); Mean Platelet Volume 7.4; Monocytes # (A) 0.7 k/uL (0-1.0); Monocytes % (A) 8 %; Neutrophils # (A) 6.2 k/uL (1.3-7.7); Neutrophils % (A) 66 %; Platelet Count 218 k/uL (150-450); RBC 5.18 m/uL (4.30-5.90); RDW 12.7 % (11.5-15.5); WBC 9.4 k/uL (3.8-10.6)
--- NOTE | 2017-06-13 14:29 | ED ---
General Adult HPI - General Chief complaint: Seizure Stated complaint: SEIZURE Time Seen by Provider: 06/13/17 13:16 Source: EMS, RN notes reviewed, old records reviewed Mode of arrival: EMS Limitations: altered mental status - History of Present Illness Initial comments: This is this is an 87-year-old male to the ER for evaluation of seizure. Patient seizure-like activity AFC home, seizure was witnessed by staff. Patient has history of head trauma, history of brain bleed spontaneous, denies any recent drug stroke oh. Patient was originally on Keppra after his initial brain bleed, that was stopped sometime ago. Patient is back to baseline per family. Patient's poor historian, unable to contribute to history - Related Data Home Medications Medication Instructions Recorded Confirmed Cholecalciferol [Vitamin D3] 400 unit PO BID 09/13/16 06/13/17 Magnesium Hydroxide [Milk of 2,400 mg PO DAILY PRN 09/13/16 06/13/17 Magnesia] Acetaminophen Tab [Tylenol] 650 mg PO Q6H PRN 02/04/17 06/13/17 Calcium Carbonate/Vitamin D3 1 tab PO DAILY 02/04/17 06/13/17 [Calcium 600-Vit D3 800 Tab] Docusate [Colace] 100 mg PO DAILY 02/04/17 06/13/17 Famotidine [Pepcid] 40 mg PO DAILY PRN 02/04/17 06/13/17 Previous Rx's Medication Instructions Recorded Lisinopril [Zestril] 10 mg PO DAILY #30 tab 02/08/17 Meclizine [Antivert] 25 mg PO TID PRN #60 tab 02/08/17 Metoprolol Tartrate [Lopressor] 25 mg PO BID #60 tab 02/08/17 Allergies Allergy/AdvReac Type Severity Reaction Status Date / Time No Known Allergies Allergy Verified 06/13/17 14:13 Review of Systems ROS Statement: Those systems with pertinent positive or pertinent negative responses have been documented in the HPI. ROS Other: All systems not noted in ROS Statement are negative. Past Medical History Past Medical History: CVA/TIA, Hypertension Additional Past Medical History / Comment(s): stroke May 30, 2016. wheelchair- generalized weakness. ambulates with walker, History of Any Multi-Drug Resistant Organisms: None Reported Past Surgical History: Prostate Surgery Additional Past Surgical History / Comment(s): . Past Anesthesia/Blood Transfusion Reactions: No Reported Reaction Additional Past Anesthesia/Blood Transfusion Reaction / Comment(s): no information at [facility] Past Psychological History: No Psychological Hx Reported Smoking Status: Never smoker Past Alcohol Use History: None Reported Past Drug Use History: None Reported - Past Family History Mother Family Medical History: CVA/TIA Father Family Medical History: No Reported History, Unable to Obtain General Exam Limitations: altered mental status General appearance: alert, in no apparent distress Head exam: Present: atraumatic, normocephalic, normal inspection Eye exam: Present: normal appearance, PERRL, EOMI. Absent: scleral icterus, conjunctival injection, periorbital swelling ENT exam: Present: normal exam, mucous membranes moist Neck exam: Present: normal inspection. Absent: tenderness, meningismus, lymphadenopathy Respiratory exam: Present: normal lung sounds bilaterally. Absent: respiratory distress, wheezes, rales, rhonchi, stridor Cardiovascular Exam: Present: regular rate, normal rhythm, normal heart sounds. Absent: systolic murmur, diastolic murmur, rubs, gallop, clicks GI/Abdominal exam: Present: soft, normal bowel sounds. Absent: distended, tenderness, guarding, rebound, rigid Extremities exam: Present: normal inspection, full ROM, normal capillary refill. Absent: tenderness, pedal edema, joint swelling, calf tenderness Back exam: Present: normal inspection Neurological exam: Present: alert, oriented X3, CN II-XII intact Psychiatric exam: Present: normal affect, normal mood Skin exam: Present: warm, dry, intact, normal color. Absent: rash Course Vital Signs 06/13/17 06/13/17 06/13/17 13:18 13:58 14:47 Temperature 97.7 F Pulse Rate 90 72 70 Respiratory 16 18 18 Rate Blood Pressure 145/68 124/60 144/68 O2 Sat by Pulse 98 97 97 Oximetry - Reevaluation(s) Reevaluation #1: 06/13/17 15:30 Patient is without seizure-like activity here in the emergency room EKG Findings - EKG Comments: EKG Findings:: EKG shows normal sinus rhythm rate of 73, VA 194, QRS 96, QTc 420 Medical Decision Making - Medical Decision Making 87 male the ER for evaluation of new onset seizure, patient placed on Keppra, will admit for neurology evaluation and EEG, patient does have history of brain bleed, is a current mental status, baseline. - Lab Data Result diagrams: 06/13/17 14:05 06/13/17 14:05 Lab Results 06/13/17 06/13/17 06/13/17 Range/Units 14:05 14:05 14:45 WBC 9.4 (3.8-10.6) k/uL RBC 5.18 (4.30-5.90) m/uL Hgb 16.4 (13.0-17.5) gm/dL Hct 49.0 (39.0-53.0) % MCV 94.6 (80.0-100.0) fL MCH 31.7 (25.0-35.0) pg MCHC 33.5 (31.0-37.0) g/dL RDW 12.7 (11.5-15.5) % Plt Count 218 (150-450) k/uL Neutrophils % 66 % Lymphocytes % 21 % Monocytes % 8 % Eosinophils % 3 % Basophils % 1 % Neutrophils # 6.2 (1.3-7.7) k/uL Lymphocytes # 2.0 (1.0-4.8) k/uL Monocytes # 0.7 (0-1.0) k/uL Eosinophils # 0.3 (0-0.7) k/uL Basophils # 0.1 (0-0.2) k/uL Sodium 140 (137-145) mmol/L Potassium 4.2 (3.5-5.1) mmol/L Chloride 103 (98-107) mmol/L Carbon Dioxide 23 (22-30) mmol/L Anion Gap 14 mmol/L BUN 17 (9-20) mg/dL Creatinine 1.16 (0.66-1.25) mg/dL Est GFR (MDRD) Af Amer >60 (>60 ml/min/1.73 sqM) Est GFR (MDRD) Non-Af 60 (>60 ml/min/1.73 sqM) Glucose 113 H (74-99) mg/dL Calcium 9.8 (8.4-10.2) mg/dL Total Bilirubin 0.7 (0.2-1.3) mg/dL AST 24 (17-59) U/L ALT 39 (21-72) U/L Alkaline Phosphatase 44 (38-126) U/L Total Protein 6.7 (6.3-8.2) g/dL Albumin 4.1 (3.5-5.0) g/dL Salicylates <1.0 mg/dL Urine Opiates Screen Not Detected (NotDetected) Ur Oxycodone Screen Not Detected (NotDetected) Urine Methadone Screen Not Detected (NotDetected) Ur Propoxyphene Screen Not Detected (NotDetected) Acetaminophen <10.0 ug/mL Ur Barbiturates Screen Not Detected (NotDetected) U Tricyclic Antidepress Not Detected (NotDetected) Ur Phencyclidine Scrn Not Detected (NotDetected) Ur Amphetamines Screen Not Detected (NotDetected) U Methamphetamines Scrn Not Detected (NotDetected) U Benzodiazepines Scrn Not Detected (NotDetected) Urine Cocaine Screen Not Detected (NotDetected) U Marijuana (THC) Screen Not Detected (NotDetected) Serum Alcohol <10 mg/dL - Radiology Data Radiology results: report reviewed (CT brain is negative), image reviewed Disposition Clinical Impression: New onset seizure Disposition: ADMITTED IP TO THIS [facility] Condition: Good Referrals: Sara Wing MD [Primary Care Provider] - 1-2 days
[2017-06-13 14:30] LABS: ALT 39 U/L (21-72); AST 24 U/L (17-59); Acetaminophen <10.0 ug/mL; Albumin 4.1 g/dL (3.5-5.0); Alcohol <10 mg/dL; Alkaline Phosphatase 44 U/L (38-126); Anion Gap 14 mmol/L; Blood Urea Nitrogen 17 mg/dL (9-20); Calcium 9.8 mg/dL (8.4-10.2); Carbon Dioxide 23 mmol/L (22-30); Chloride 103 mmol/L (98-107); Glucose 113 mg/dL (74-99); Potassium 4.2 mmol/L (3.5-5.1); Salicylate <1.0 mg/dL; Sodium 140 mmol/L (137-145); Total Bilirubin 0.7 mg/dL (0.2-1.3); Total Protein 6.7 g/dL (6.3-8.2)
--- NOTE | 2017-06-13 14:37 | CT ---
EXAMINATION TYPE: CT brain wo con DATE OF EXAM: 06/13/2017 COMPARISON: February 04, 2017 HISTORY: possible seizures. No prior history CT DLP: [address] of the brain was performed. The ventricles, basal cisterns and sulci overlying the cerebral convexities demonstrate moderate enla rgement. Remote insult left frontal lobe. There is no evidence for intracranial hemorrhage or sulcal effacement. There is decreased attenuation about the periventricular white matter and deep white matter of both c erebral hemispheres, compatible with chronic small vessel ischemia. Differential diagnosis does inclu de demyelination. No mass effects are seen.No midline shift. Osseous calvarium is intact. If symptoms persist consider MRI. IMPRESSION: 1. Age related atrophic and chronic small vessel ischemic change without acute intracranial process s een at this time.
[2017-06-13 15:25] LABS: Amphetamine Screen,Urine Not Detected (NotDetected); Barbiturate Screen,Urine Not Detected (NotDetected); Benzodiazepines Screen,Urine Not Detected (NotDetected); Cocaine Screen,Urine Not Detected (NotDetected); Methadone Screen, Urine Not Detected (NotDetected); Opiate Screen,Urine Not Detected (NotDetected); Oxycodone Screen, Urine Not Detected (NotDetected); Phencyclidine Screen,Urine Not Detected (NotDetected); Tricyclic Antidepressant,Urine Not Detected (NotDetected); Urn Cannabinoid Scrn Not Detected (NotDetected)
[2017-06-13] MEDS: SODIUM CHLORIDE 0.9% 1,000 ML IV SCH (16:18)
[2017-06-13] MEDS ORDERED: ACETAMINOPHEN TAB 325 MG TAB PO PRN (17:53)
[2017-06-13] MEDS ORDERED: MAGNESIUM HYDROXIDE 2,400 MG/10 ML CUP PO PRN (17:53)
[2017-06-13] MEDS ORDERED: MECLIZINE 25 MG TAB PO PRN (17:53)
[2017-06-13] MEDS ORDERED: LORazepam 2 MG/ML INJ IV PRN (17:58)
[2017-06-13 20:18] LABS: Appearance,Urine Clear (Clear); Bilirubin,Urine Negative (Negative); Blood,Urine Negative (Negative); Color,Urine Light Yellow; Glucose,Urine (UA) Negative (Negative); Ketones,Urine Negative (Negative); Leukocyte Esterase,Urine Negative (Negative); Nitrite,Urine Negative (Negative); PH, Urine 6.5 (5.0-8.0); Protein,Urine Negative (Negative); Specific Gravity,Urine 1.004 (1.001-1.035); Urobilinogen,Urine <2.0 mg/dL (<2.0)
[2017-06-13] MEDS: METOPROLOL TARTRATE 25 MG TAB PO SCH (20:43)
[2017-06-13] MEDS: CHOLECALCIFEROL 400 UNIT TAB PO SCH (20:43)
[2017-06-13] MEDS: levETIRAcetam IV 1,000 MG in SALINE 1 100ML.BAG IVPB SCH (22:42)
[2017-06-14 08:13] LABS: ALT 39 U/L (21-72); AST 27 U/L (17-59); Albumin 3.4 g/dL (3.5-5.0); Alkaline Phosphatase 40 U/L (38-126); Anion Gap 7 mmol/L; Blood Urea Nitrogen 15 mg/dL (9-20); Calcium 9.3 mg/dL (8.4-10.2); Carbon Dioxide 29 mmol/L (22-30); Chloride 106 mmol/L (98-107); Glucose 91 mg/dL (74-99); Potassium 4.3 mmol/L (3.5-5.1); Sodium 142 mmol/L (137-145); Total Bilirubin 0.8 mg/dL (0.2-1.3); Total Protein 5.8 g/dL (6.3-8.2)
[2017-06-14 08:21] LABS: Basophils # (A) 0.1 k/uL (0-0.2); Basophils % (A) 1 %; Eosinophils # (A) 0.3 k/uL (0-0.7); Eosinophils % (A) 4 %; HCT 44.6 % (39.0-53.0); HGB 14.7 gm/dL (13.0-17.5); Lymphocytes # (A) 2.7 k/uL (1.0-4.8); Lymphocytes % (A) 30 %; MCH 30.9 pg (25.0-35.0); MCHC 32.9 g/dL (31.0-37.0); MCV 93.9 fL (80.0-100.0); Mean Platelet Volume 8.1; Monocytes # (A) 0.7 k/uL (0-1.0); Monocytes % (A) 8 %; Neutrophils # (A) 4.9 k/uL (1.3-7.7); Neutrophils % (A) 55 %; Platelet Count 199 k/uL (150-450); RBC 4.75 m/uL (4.30-5.90); RDW 13.8 % (11.5-15.5); WBC 8.9 k/uL (3.8-10.6)
[2017-06-14] MEDS: DOCUSATE 100 MG CAP PO SCH (08:50)
[2017-06-14] MEDS: LISINOPRIL 10 MG TAB PO SCH (08:50)
[2017-06-14] MEDS: CHOLECALCIFEROL 400 UNIT TAB PO SCH ×2 (08:50→20:44)
[2017-06-14] MEDS: levETIRAcetam IV 1,000 MG in SALINE 1 100ML.BAG IVPB SCH (08:50)
[2017-06-14] MEDS: CALCIUM CARB-VIT D 500MG-200UN 1 EACH TAB PO SCH (08:50)
[2017-06-14] MEDS: METOPROLOL TARTRATE 25 MG TAB PO SCH ×2 (08:50→20:43)
[2017-06-14] MEDS ORDERED: FAMOTIDINE 20 MG TAB PO PRN (09:00)
--- NOTE | 2017-06-14 10:54 | CONS ---
CONSULTATION DATE OF CONSULTATION: 06/13/2017 CHIEF COMPLAINT: Seizure. HISTORY OF PRESENT ILLNESS: Mr. Dobbins is a pleasant 87-year-old, male, who is being evaluated today on 06/13/2017 by the neurology service per the request of Dr. Martinez for his seizure. The patient has history of hemorrhagic stroke and currently resides in an adult foster [facility]. He was brought into [facility] after he had a witnessed seizure which was described as generalized tonic colonic. The patient is a poor historian and does not recall why he was brought into the hospital. According to the chart, he had been on Keppra after his intracranial hemorrhage but it is unclear when and why that was discontinued. A CT scan of the brain was done in emergency room, which showed no acute intracranial abnormalities. There was generalized atrophy and small-vessel ischemic changes. His CBC, comprehensive metabolic profile and urine drug screen were normal. At the time of my evaluation, he is lying in his bed and appears to be in no acute distress. He has been afebrile since his admission. He denies any headache or lateralizing numbness or weakness. PAST MEDICAL HISTORY: Intracranial hemorrhage, hypertension, chronic generalized weakness, history of prostate surgery. SOCIAL HISTORY: He denied any tobacco, alcohol or drug use. FAMILY HISTORY: Positive for strokes. HOME MEDICATIONS: Reviewed in the chart. ALLERGIES: No known drug allergies. REVIEW OF SYSTEM: CONSTITUTIONAL: Negative. EYES: Negative. ENT: Positive for occasional vertigo. CARDIOVASCULAR: Negative. RESPIRATORY: Negative. NEUROLOGICAL: As mentioned above. GASTROINTESTINAL: Negative. GENITOURINARY: Negative. PSYCHIATRIC: Negative. MUSCULOSKELETAL: Positive for generalized chronic weakness. ENDOCRINE: Negative. DERMATOLOGICAL: Negative. PHYSICAL EXAM: Vital signs show a temperature of 96.5, pulse 60, respirations 16, blood pressure 132/61. GENERAL APPEARANCE: The patient is a well-developed, elderly male, who appears to be in no acute distress. HEENT: Normocephalic, atraumatic, no facial asymmetry is seen. Neck is supple with no masses felt. CARDIOVASCULAR: Regular rate and rhythm. ABDOMEN: Nontender. Nondistended. Extremities showed no edema or clubbing. NEUROLOGICAL EXAM: The patient is alert, aware and oriented x3. Speech and language are normal. Strength is 5 minus out of 5 in bilateral upper extremities and 4+ out of 5 in bilateral lower extremities. Sensory exam was normal to light touch in all 4 extremities. No pronator drift is seen. No tremors or seizure-like activity is noticed. No facial asymmetry is seen on cranial nerve testing. IMPRESSION: 1. Seizure disorder. 2. History of hemorrhagic stroke. 3. Hypertension. RECOMMENDATION: The patient does appear to have suffered a generalized tonic colonic seizure. As stated above, the patient had been on Keppra in the past, but it is unclear why this was discontinued or when it was discontinued. He has been restarted on Keppra 1000 mg b.i.d. and I recommend continuing this medication. An EEG has been ordered. I did review his laboratory workup and CT scan of the brain all of which showed no significant abnormalities. Continue neuro checks and seizure precautions. I will continue to follow with you. Further recommendations to follow. Thank you for allowing me to participate in the care of your patient. If you have any questions, please feel free to contact me. NAE / MELQUIADES: [id number] /
--- NOTE | 2017-06-14 11:18 | P.HPIM ---
History of Present Illness H&P Date: 06/07/17 Chief Complaint: Seizure This is a 87-year-old gentleman with past medical history noted below significant for history of intracranial hemorrhage in May 2016 who presented to the hospital from [facility] with a seizure episode. Patient himself is a very poor historian and most of the history was obtained by chart review and nursing staff report. Apparently patient was having lunch yesterday when he started having a generalized seizure and had a fall off the chair to the ground. Patient was brought to the emergency room and underwent a computed tomography scan of the brain showing no acute findings. Patient was on Keppra previously since his history of hemorrhagic stroke that was discontinued last January per neurology recommendation during his hospitalization Review of Systems Review of system: 14 points review of systems were obtained and were negative except to what were mentioned in the HPI. Past Medical History Past Medical History: CVA/TIA, GI Bleed, Hypertension, Pneumonia, Prostate Disorder Additional Past Medical History / Comment(s): stroke May 30, 2016. per family pt ambulates with walker, uti, in may 2016 had cva and difficulting swallowing- had a peg tube inserted. by august 2016 pt improved and was able to swallow so it was removed .enlarged prostae(hx turp) and 2009 had prostate cancer(no sx just raditaion),hemorrhoids, indentation in skull-was kicked in head by horse when as a child", cataraCats(sx-lens implants) History of Any Multi-Drug Resistant Organisms: None Reported Past Surgical History: Heart Catheterization, Prostate Surgery Additional Past Surgical History / Comment(s): cataracts removed-lens implants.peg tube-since removed,turp, Past Anesthesia/Blood Transfusion Reactions: No Reported Reaction Additional Past Anesthesia/Blood Transfusion Reaction / Comment(s): per pt's son -pt resides at [facility] in [place]. [phone]. contacat personat [facility] is brian swartz. Smoking Status: Never smoker - Past Family History Mother Family Medical History: CVA/TIA Father Family Medical History: No Reported History, Unable to Obtain Brother(s) Family Medical History: Cancer Additional Family Medical History / Comment(s): testicular cancer. Medications and Allergies Home Medications Medication Instructions Recorded Confirmed Type Cholecalciferol [Vitamin D3] 400 unit PO BID 09/13/16 06/13/17 History Magnesium Hydroxide [Milk of 2,400 mg PO DAILY PRN 09/13/16 06/13/17 History Magnesia] Acetaminophen Tab [Tylenol] 650 mg PO Q6H PRN 02/04/17 06/13/17 History Calcium Carbonate/Vitamin D3 1 tab PO DAILY 02/04/17 06/13/17 History [Calcium 600-Vit D3 800 Tab] Docusate [Colace] 100 mg PO DAILY 02/04/17 06/13/17 History Famotidine [Pepcid] 40 mg PO DAILY PRN 02/04/17 06/13/17 History Lisinopril [Zestril] 10 mg PO DAILY #30 tab 02/08/17 06/13/17 Rx Meclizine [Antivert] 25 mg PO TID PRN #60 tab 02/08/17 06/13/17 Rx Metoprolol Tartrate [Lopressor] 25 mg PO BID #60 tab 02/08/17 06/13/17 Rx Allergies Allergy/AdvReac Type Severity Reaction Status Date / Time No Known Allergies Allergy Verified 06/13/17 14:13 Physical Exam Vitals: Vital Signs Temp Pulse Pulse Resp BP BP Pulse Ox 06/14/17 07:00 97.6 F 56 L 16 142/72 96 06/13/17 23:00 97.0 F L 55 L 17 128/66 91 L 06/13/17 17:24 96.5 F L 60 16 132/61 06/13/17 16:18 97.1 F L 63 18 145/65 98 06/13/17 14:47 70 18 144/68 97 06/13/17 13:58 72 18 124/60 97 06/13/17 13:18 97.7 F 90 16 145/68 98 Intake and Output 06/13/17 06/14/17 06/14/17 22:59 06:59 14:59 Intake Total 240 Output Total 250 Balance -250 240 Intake: Oral 240 Output: Urine 250 Other: Voiding Method Urinal Urinal Urinal Incontinent Incontinent Incontinent # Voids 3 3 General: The patient is awake and alert, in no distress Eye: there is normal conjunctiva bilaterally. Neck: The neck is supple, there is no JVD. Cardiovascular: Normal S1-S2, no S3-S4, no murmurs. Respiratory: Lungs clear to auscultation bilaterally Gastrointestinal: Abdomen is soft, nontender Musculoskeletal: There is no pedal edema. Neurological:. Speech is normal. Skin: Skin is warm and dry Results CBC & Chem 7: 06/14/17 07:25 06/14/17 07:25 Labs: Abnormal Lab Results - Last 24 Hours (Table) 06/13/17 06/14/17 Range/Units 14:05 07:25 Glucose 113 H (74-99) mg/dL Total Protein 5.8 L (6.3-8.2) g/dL Albumin 3.4 L (3.5-5.0) g/dL Microbiology - Last 24 Hours (Table) 06/13/17 19:45 Urine Culture - Preliminary Urine,Voided Thrombosis Risk Factor Assmnt - Choose All That Apply Each Factor Represents 1 point: Obesity (BMI >25) Each Risk Factor Represents 3 Points: Age 75 years or older Thrombosis Risk Factor Assessment Total Risk Factor Score: 4 Thrombosis Risk Factor Assessment Level: Moderate Risk Assessment and Plan Assessment: 1. Seizure episode, patient was restarted on Keppra. He was seen and evaluated by neurology. Computed tomography scan of the brain showed no acute findings. EEG ordered. 2. Essential hypertension: Blood pressure well-controlled 3. History of intracranial bleed in May 2016 4. Underlying dementia/cognitive impairment Today, I reviewed his medication list and lab work results. We'll continue seizure precautions. Awaiting EEG. Continue Keppra as ordered. May return back to before meals home upon discharge.
--- NOTE | 2017-06-14 14:50 | P.PN ---
Subjective Progress Note Date: 06/14/17 Principal diagnosis: Patient is a pleasant 87-year-old male who is being followed by the neurology service for seizures. Patient has history of hemorrhagic stroke and currently resides in an adult foster long-term. Patient had a witnessed seizure was brought to [facility] for further evaluation. Patient does have a history of being on Keppra but it is unclear whether Keppra was placed prophylactically following stroke work patient actually had seizure. Patient is poor historian. It is also unclear why Keppra was discontinued. Computed tomography scan of the brain was done upon arrival which showed no acute intracranial abnormalities. CT did show generalized atrophy and small vessel ischemic changes. At the time of my evaluation, patient is lying in bed and appears to be in no acute distress. No further seizures have been witnessed or reported. Objective - Vital Signs Vital signs: Vital Signs Temp 97.6 F 06/14/17 07:00 Pulse 56 L 06/14/17 07:00 Resp 16 06/14/17 07:00 BP 142/72 06/14/17 07:00 Pulse Ox 96 06/14/17 07:00 Intake & Output 06/13/17 06/14/17 06/14/17 18:59 06:59 18:59 Intake Total 240 Output Total 250 Balance -250 240 Weight 72.575 kg Intake: Oral 240 Output: Urine 250 Other: Voiding Method Urinal Urinal Urinal Incontinent Incontinent Incontinent # Voids 1 3 - Exam PHYSICAL EXAM: GENERAL APPEARANCE: Patient is a well-developed, male who appears to be in no acute distress. HEENT: Normocephalic, atraumatic, no facial asymmetry is seen. Neck is supple with no masses felt. CARDIOVASCULAR: Regular rate and rhythm. ABDOMEN: Nontender, nondistended. EXTREMITIES: Show no edema or clubbing. Vital signs are temperature 97.6, pulse 56, blood pressure 142/72, O2 saturation 96% on 2 L nasal cannula. NEUROLOGICAL EXAM: Patient is awake, alert, and oriented 2. Patient does not recall the year. Speech and language are normal. Strength is 5-/5 in bilateral upper extremities and 4+/5 in bilateral lower extremities. Sensory exam is normal to light touch in all 4 extremities. No facial asymmetry is seen on cranial nerve testing. No tremors or seizure-like activity is noted. - Labs CBC & Chem 7: 06/14/17 07:25 06/14/17 07:25 Labs: Abnormal Lab Results - Last 24 Hours (Table) 06/14/17 Range/Units 07:25 Total Protein 5.8 L (6.3-8.2) g/dL Albumin 3.4 L (3.5-5.0) g/dL Microbiology - Last 24 Hours (Table) 06/13/17 19:45 Urine Culture - Preliminary Urine,Voided Assessment and Plan Plan: Impression: 1. Seizure disorder 2. History of hemorrhagic stroke 3. Hypertension Recommendations: It does appear patient suffered a generalized tonic clonic seizure. Keppra has been restarted at 1000 mg twice a day and no further seizures. I will switch his IV Keppra to oral since he is taking oral medication without difficulty. An EEG was done and results are pending. As previously mentioned, computed tomography scan of the brain did not show any significant abnormality. Continue neurological checks. Continue seizure precautions. I will continue to follow with you. Further recommendations to follow. I performed an examination of the patient and discussed the management with the RESTAURANT ATTENDANT. I have reviewed the RESTAURANT ATTENDANT notes and agree with the findings and plan of care.
[2017-06-14] MEDS: SODIUM CHLORIDE 0.9% 1,000 ML IV SCH (17:31)
[2017-06-14] MEDS: levETIRAcetam 500 MG TAB PO SCH (20:44)
[2017-06-15 07:38] VITALS: BP 138/75; PULSE 57; RESP 16; TEMP 96.7
[2017-06-15] MEDS: METOPROLOL TARTRATE 25 MG TAB PO SCH (09:34)
[2017-06-15] MEDS: CHOLECALCIFEROL 400 UNIT TAB PO SCH (09:35)
[2017-06-15] MEDS: levETIRAcetam 500 MG TAB PO SCH (09:35)
[2017-06-15] MEDS: LISINOPRIL 10 MG TAB PO SCH (09:35)
[2017-06-15] MEDS: CALCIUM CARB-VIT D 500MG-200UN 1 EACH TAB PO SCH (09:35)
[2017-06-15] MEDS: DOCUSATE 100 MG CAP PO SCH (09:35)
--- NOTE | 2017-06-15 11:36 | P.DS ---
Providers Date of admission: 06/13/17 15:27 Expected date of discharge: 06/15/17 Attending physician: Nino Martinez Consults: 06/13/17 15:27 Consult Physician Routine Consulting Provider: Aamir Abrams Consult Reason/Comments: sz Do you want consulting provider notified?: Yes Primary care physician: [facility] Course: 1. Seizure episode, patient was restarted on Keppra. He was seen and evaluated by neurology. Computed tomography scan of the brain showed no acute findings. EEG done and awaiting report. May follow-up as an outpatient. Patient will continue on Keppra 1000 mg twice daily. Follow-up in one week for Keppra level with PCP. 2. Essential hypertension: Blood pressure well-controlled 3. History of intracranial bleed in May 2016 4. Underlying dementia/cognitive impairment Patient Condition at Discharge: Fair Plan - Discharge Summary Discharge Rx Participant: No New Discharge Prescriptions: New levETIRAcetam [Keppra] 1,000 mg PO Q12HR #120 tab Continue Magnesium Hydroxide [Milk of Magnesia] 2,400 mg PO DAILY PRN PRN Reason: Constipation/Heartburn Cholecalciferol [Vitamin D3] 400 unit PO BID Acetaminophen Tab [Tylenol] 650 mg PO Q6H PRN PRN Reason: Moderate Pain Calcium Carbonate/Vitamin D3 [Calcium 600-Vit D3 800 Tab] 1 tab PO DAILY Docusate [Colace] 100 mg PO DAILY Famotidine [Pepcid] 40 mg PO DAILY PRN PRN Reason: Heartburn Lisinopril [Zestril] 10 mg PO DAILY #30 tab Meclizine [Antivert] 25 mg PO TID PRN #60 tab PRN Reason: dizziness Metoprolol Tartrate [Lopressor] 25 mg PO BID #60 tab Discharge Medication List Cholecalciferol [Vitamin D3] 400 unit PO BID 09/13/16 [History] Magnesium Hydroxide [Milk of Magnesia] 2,400 mg PO DAILY PRN 09/13/16 [History] Acetaminophen Tab [Tylenol] 650 mg PO Q6H PRN 02/04/17 [History] Calcium Carbonate/Vitamin D3 [Calcium 600-Vit D3 800 Tab] 1 tab PO DAILY [History] Docusate [Colace] 100 mg PO DAILY 09/08/17 [History] Famotidine [Pepcid] 40 mg PO DAILY PRN 02/04/17 [History] Lisinopril [Zestril] 10 mg PO DAILY #30 tab 02/08/17 [Rx] Meclizine [Antivert] 25 mg PO TID PRN #60 tab 02/08/17 [Rx] Metoprolol Tartrate [Lopressor] 25 mg PO BID #60 tab 02/08/17 [Rx] levETIRAcetam [Keppra] 1,000 mg PO Q12HR #120 tab 06/15/17 [Rx] Follow up Appointment(s)/Referral(s): [facility], [NON-STAFF] - Sara Wing MD [Primary Care Provider] - 1-2 days Aamir Abrams MD [STAFF PHYSICIAN] - 1 Week Discharge Disposition: TRANSFER TO SNF/ECF
--- NOTE | 2017-06-15 19:37 | EEG ---
ELECTROENCEPHALOGRAM REPORT DATE OF SERVICE: 06/14/2017 REASON FOR TESTING: Seizure. CURRENT ANTIEPILEPTIC MEDICATION: Keppra. DESCRIPTION OF THE PROCEDURE: This EEG was performed using a 21-channel digital electroencephalograph, following international 10-20 system. DESCRIPTION OF THE RECORDING: From the beginning of the tracing, and with patient's eyes closed, the background rhythm was mostly consisting of 8 Hz alpha frequency in the posterior occipital leads. No obvious asymmetry is seen. Photic stimulation was performed with a minimal driving response seen. No pathological waves were elicited. Hyperventilation was not performed. Occasional movement artifacts are seen. The patient remains awake throughout the tracing. No epileptiform discharges were seen. Lead artifacts are seen near the end of the tracing. His EKG lead showed a regular rate and rhythm. INTERPRETATION: This awake EEG can be considered within normal limits. There was no asymmetry seen. No epileptiform discharges were noticed. The absence of epileptiform discharges does not rule out the diagnosis of epilepsy; therefore clinical correlation is recommended. MMRAUL / MELQUIADES: [id number] /
== END 2017-06-15 12:06 | disposition home health service (06) ==
LOC: EC 13:13 → 4MS4W 15:27
PROVIDERS: ADMIT Internal Medicine; ATTEND Internal Medicine
DX: G40.909 Epilepsy, unspecified, not intractable, without status epilepticus (principal); I10 Essential (primary) hypertension; R53.1 Weakness; F03.90 Unspecified dementia, unspecified severity, without behavioral disturbance, psychotic disturbance, mood disturbance, and anxiety; E66.9 Obesity, unspecified; Z68.25 Body mass index [BMI] 25.0-25.9, adult; Z79.899 Other long term (current) drug therapy; Z86.73 Personal history of transient ischemic attack (TIA), and cerebral infarction without residual deficits
CPT/HCPCS: 99285 ×2; 96376 ×3; 96361 ×2; 96365; 36415; 95819; 93005; 80053 ×2; 80177; 85025 ×2; 81003; 80306; 83520 ×2; 80320; 87086; 70450; G0378 ×3; J1953 ×2; 96366

== ENCOUNTER 2017-12-27 13:23 | Inpatient (IN) | payer MEDICARE, BC ==
[2017-12-27] MEDS ORDERED: SODIUM CHLORIDE 0.9% 500 ML IV STA ×2 (13:53→15:43)
[2017-12-27 14:48] LABS: Basophils % (A) 0 %; Eosinophils # (A) 0.1 k/uL (0-0.7); Eosinophils % (A) 0 %; HCT 45.5 % (39.0-53.0); Lymphocytes # (A) 1.2 k/uL (1.0-4.8); Lymphocytes % (A) 7 %; MCH 31.4 pg (25.0-35.0); MCHC 32.9 g/dL (31.0-37.0); MCV 95.6 fL (80.0-100.0); Mean Platelet Volume 7.1; Monocytes # (A) 0.9 k/uL (0-1.0); Monocytes % (A) 5 %; Neutrophils # (A) 14.6 k/uL (1.3-7.7); Neutrophils % (A) 87 %; Platelet Count 173 k/uL (150-450); RBC 4.77 m/uL (4.30-5.90); WBC 16.8 k/uL (3.8-10.6)
[2017-12-27 14:50] LABS: Appearance,Urine Clear (Clear); Bilirubin,Urine Negative (Negative); Blood,Urine Small (Negative); Color,Urine Yellow; Glucose,Urine (UA) Negative (Negative); Ketones,Urine Negative (Negative); Leukocyte Esterase,Urine Negative (Negative); Mucus,Urine Few /hpf; Nitrite,Urine Negative (Negative); Protein,Urine 1+ (Negative); RBC,Urine 6 /hpf (0-5); Specific Gravity,Urine 1.026 (1.001-1.035); Squamous Epithelial Cell,Urine <1 /hpf (0-4); Urobilinogen,Urine <2.0 mg/dL (<2.0); WBC,Urine 1 /hpf (0-5)
[2017-12-27 14:52] LABS: Albumin 3.9 g/dL (3.5-5.0); Calcium 9.2 mg/dL (8.4-10.2); Total Protein 6.5 g/dL (6.3-8.2)
--- NOTE | 2017-12-27 14:54 | XR ---
EXAMINATION TYPE: XR chest 2V DATE OF EXAM: 12/27/2017 COMPARISON: 02/04/2017 INDICATION: Fever TECHNIQUE: Frontal and lateral views of the chest are obtained. FINDINGS: The heart size is normal. The pulmonary vasculature is normal. The lungs are clear. EKG leads overlie the chest. IMPRESSION: 1. No acute pulmonary process.
[2017-12-27 14:55] LABS: Potassium 4.5 mmol/L (3.5-5.1)
[2017-12-27] MEDS ORDERED: VANCOMYCIN 1,500 MG in SODIUM CHLORIDE 0.9% 250 ML IVPB STA (15:10)
--- NOTE | 2017-12-27 15:40 | CT ---
EXAMINATION TYPE: CT brain wo con DATE OF EXAM: 12/27/2017 COMPARISON: 06/13/2017 INDICATION: pain DLP: 763 mGycm, Automated exposure control for dose reduction was used. CONTRAST: None CT of the brain is performed utilizing 3 mm thick sections through the posterior fossa and 3 mm thick sections through the remaining calvarium. Study is performed within 24 hours of arrival to the hosp [facility]. No abnormal hyperdensity is present to suggest an acute intracranial hemorrhage. No mass lesion is evident. No acute infarcts are evident. There is an old left frontal lobe infarct. Ventricles and sulci are prominent for the patient age. Paranasal sinuses and mastoid air cells within the [id number] are clear. Exam is stable from comparison. IMPRESSIONS: 1. Atrophy. 2. Old left frontal lobe infarct.
--- NOTE | 2017-12-27 15:46 | XR ---
EXAMINATION TYPE: XR tibia fibula RT DATE OF EXAM: 12/27/2017 COMPARISON: None HISTORY: Pain and redness distal tibia TECHNIQUE: 2 view tibia and fibula FINDINGS: Soft tissues appear unremarkable. No radiopaque foreign bodies are evident. Tibia and fibul a appear intact. Joint spaces are preserved. IMPRESSION: 1. Normal right tibia and fibula
[2017-12-27] MEDS ORDERED: NALOXONE 0.4 MG/ML 1 ML VIAL IV PRN (15:48)
--- NOTE | 2017-12-27 15:48 | ED ---
General Adult HPI - General Chief complaint: Fever Stated complaint: Fever Source: patient Mode of arrival: EMS - History of Present Illness Initial comments: Dictation was produced using [employer] dictation software. please excuse any grammatical, word or spelling errors. Chief Complaint: 87 year old male past medical history of CVA, GI bleed, hypertension, prostate disease presents with fever. History of Present Illness: Patient is brought in by EMS for fevers since this morning. Patient is a limited historian given past medical history of intracranial bleed. He presents today with [facility] states that he is at baseline however over the last several months he has been slowly declining. Patient had a fever today prescribed by EMS. Patient states that he has some pain to his right lower extremity. Denies any cough, nausea, vomiting, diarrhea. The ROS documented in this emergency department record has been reviewed and confirmed by me. Those systems with pertinent positive or negative responses have been documented in the HPI. All other systems are other negative and/or noncontributory. - Related Data Home Medications Medication Instructions Recorded Confirmed Cholecalciferol [Vitamin D3] 400 unit PO BID 09/13/16 12/27/17 Acetaminophen Tab [Tylenol] 650 mg PO Q6H PRN 02/04/17 12/27/17 Calcium Carbonate/Vitamin D3 1 tab PO DAILY 02/04/17 12/27/17 [Calcium 600-Vit D3 800 Tab] Docusate [Colace] 100 mg PO DAILY 02/04/17 12/27/17 Betamethasone Valerate 1 applic TOPICAL DAILY PRN 12/27/17 12/27/17 [Betamethasone Valerate 0.1%] Escitalopram [Lexapro] 5 mg PO HS 12/27/17 12/27/17 Furosemide [Lasix] 20 mg PO DAILY@1400 12/27/17 12/27/17 Melatonin 6 mg PO HS 12/27/17 12/27/17 Previous Rx's Medication Instructions Recorded Lisinopril [Zestril] 10 mg PO DAILY #30 tab 02/08/17 Metoprolol Tartrate [Lopressor] 25 mg PO BID #60 tab 02/08/17 levETIRAcetam [Keppra] 1,000 mg PO Q12HR #120 tab 06/15/17 Allergies Allergy/AdvReac Type Severity Reaction Status Date / Time No Known Allergies Allergy Verified 06/13/17 14:13 Review of Systems ROS Statement: Those systems with pertinent positive or pertinent negative responses have been documented in the HPI. ROS Other: All systems not noted in ROS Statement are negative. Past Medical History Past Medical History: CVA/TIA, GI Bleed, Hypertension, Pneumonia, Prostate Disorder Additional Past Medical History / Comment(s): stroke May 30, 2016. per family pt ambulates with walker, uti, in may 2016 had cva and difficulting swallowing- had a peg tube inserted. by august 2016 pt improved and was able to swallow so it was removed .enlarged prostae(hx turp) and 2009 had prostate cancer(no sx just raditaion),hemorrhoids, indentation in skull-was kicked in head by horse when as a child", cataraCats(sx-lens implants) History of Any Multi-Drug Resistant Organisms: None Reported Past Surgical History: Heart Catheterization, Prostate Surgery Additional Past Surgical History / Comment(s): cataracts removed-lens implants.peg tube-since removed,turp, Past Anesthesia/Blood Transfusion Reactions: No Reported Reaction Additional Past Anesthesia/Blood Transfusion Reaction / Comment(s): per pt's son -pt resides at [facility] in [place]. [phone]. [facility]. Past Psychological History: No Psychological Hx Reported Smoking Status: Never smoker Past Alcohol Use History: None Reported Past Drug Use History: None Reported - Past Family History Mother Family Medical History: CVA/TIA Father Family Medical History: No Reported History, Unable to Obtain Brother(s) Family Medical History: Cancer Additional Family Medical History / Comment(s): testicular cancer. General Exam - General Exam Comments Initial Comments: PHYSICAL EXAM: General Impression: Alert and oriented x3, not in acute distress HEENT: Normocephalic atraumatic, extra-ocular movements intact, pupils equal and reactive to light bilaterally, mucous membranes moist. Cardiovascular: Heart regular rate and rhythm, S1&S2 audible, no murmurs, rubs or gallops Chest: Lungs clear to auscultation bilaterally, no rhonchi, no wheeze, no rales Abdomen: Bowel sounds present, abdomen soft, non-tender, non-distended, no organomegaly Musculoskeletal: Pulses present and equal in all extremities, no peripheral edema Motor: Power 5/5 bilaterally, no focal deficits noted Neurological: CN II-XII grossly intact, no focal motor or sensory deficits noted Skin: Diffuse circumferential rash to the right tib-fib area that is circumferential, positive calor Psych: Normal affect and mood Course Vital Signs 12/27/17 13:36 Temperature 97.1 F L Pulse Rate 71 Respiratory 18 Rate Blood Pressure 123/60 O2 Sat by Pulse 97 Oximetry Medical Decision Making - Medical Decision Making ED course: 87 year old male with clinical presentation consistent with cellulitis with systemic reaction. Vital signs upon arrival shows no pyrexia. Rest of vital signs within normal limits. Patient appears well time. Physical examination positive for findings to suggest right lower extremity cellulitis. At this time no clinical suspicion of necrotizing skin infection. Patient started on vancomycin. Computed tomography scan of the head shows no acute processes. Urine is negative. EKGs benign patient to be admitted to the hospital for encephalopathy with sepsis. Patient is understandable and agreeable to plan. EKG Interpretation: A 12 lead EKG was obtained. It was interpreted by myself and attending physician. There is a P wave before every QRS complex. Rate is 70. Rhythm is normal sinus rhythm, MD interval 190, QRS 100, QTC 419. QT is not prolonged. No ST segment depression or elevation. This EKG was compared to a previous EKG that was obtained on 06/13/2017 and showed no significant change. Overall, this EKG is unremarkable - Lab Data Result diagrams: 12/27/17 14:30 12/27/17 14:30 Lab Results 12/27/17 12/27/17 12/27/17 Range/Units 14:30 14:30 14:30 WBC 16.8 H (3.8-10.6) k/uL RBC 4.77 (4.30-5.90) m/uL Hgb 15.0 (13.0-17.5) gm/dL Hct 45.5 (39.0-53.0) % MCV 95.6 (80.0-100.0) fL MCH 31.4 (25.0-35.0) pg MCHC 32.9 (31.0-37.0) g/dL RDW 13.0 (11.5-15.5) % Plt Count 173 (150-450) k/uL Neutrophils % 87 % Lymphocytes % 7 % Monocytes % 5 % Eosinophils % 0 % Basophils % 0 % Neutrophils # 14.6 H (1.3-7.7) k/uL Lymphocytes # 1.2 (1.0-4.8) k/uL Monocytes # 0.9 (0-1.0) k/uL Eosinophils # 0.1 (0-0.7) k/uL Basophils # 0.0 (0-0.2) k/uL Sodium 136 L (137-145) mmol/L Potassium 4.5 (3.5-5.1) mmol/L Chloride 102 (98-107) mmol/L Carbon Dioxide 25 (22-30) mmol/L Anion Gap 9 mmol/L BUN 30 H (9-20) mg/dL Creatinine 1.10 (0.66-1.25) mg/dL Est GFR (CKD-EPI)AfAm 70 (>60 ml/min/1.73 sqM) Est GFR (CKD-EPI)NonAf 61 (>60 ml/min/1.73 sqM) Glucose 113 H (74-99) mg/dL Calcium 9.2 (8.4-10.2) mg/dL Total Bilirubin 1.0 (0.2-1.3) mg/dL AST 23 (17-59) U/L ALT 34 (21-72) U/L Alkaline Phosphatase 40 (38-126) U/L Total Protein 6.5 (6.3-8.2) g/dL Albumin 3.9 (3.5-5.0) g/dL Urine Color Yellow Urine Appearance Clear (Clear) Urine pH 6.0 (5.0-8.0) Ur Specific [place] 1.026 (1.001-1.035) Urine Protein 1+ H (Negative) Urine Glucose (UA) Negative (Negative) Urine Ketones Negative (Negative) Urine Blood Small H (Negative) Urine Nitrite Negative (Negative) Urine Bilirubin Negative (Negative) Urine Urobilinogen <2.0 (<2.0) mg/dL Ur Leukocyte Esterase Negative (Negative) Urine RBC 6 H (0-5) /hpf Urine WBC 1 (0-5) /hpf Ur Squamous Epith Cells <1 (0-4) /hpf Urine Mucus Few H (None) /hpf Disposition Clinical Impression: Cellulitis, Sepsis Disposition: ADMITTED IP TO THIS HOSP Referrals: Luis Armando Hernandez MD [Primary Care Provider] - 1-2 days Time of Disposition: 15:48
[2017-12-27] MEDS: ACETAMINOPHEN TAB 500 MG TAB PO PRN (17:19)
[2017-12-27] MEDS ORDERED: TRIAMCINOLONE 0.1% CREAM 80 GM TUBE TOPICAL PRN (20:52)
[2017-12-27] MEDS ORDERED: ONDANSETRON 4 MG/2 ML VIAL IVP PRN (20:53)
[2017-12-27] MEDS ORDERED: LACTULOSE 20 GM/30 ML CUP PO PRN (20:53)
[2017-12-27] MEDS ORDERED: CALCIUM CARBONATE 500 MG CHEWABLE PO PRN (20:53)
[2017-12-27] MEDS ORDERED: ALPRAZolam 0.25 MG TAB PO PRN (20:53)
[2017-12-27] MEDS ORDERED: MAGNESIUM HYDROXIDE 2,400 MG/10 ML CUP PO PRN (20:53)
[2017-12-27] MEDS: METOPROLOL TARTRATE 25 MG TAB PO SCH (21:16)
[2017-12-27] MEDS: levETIRAcetam 500 MG TAB PO SCH (21:16)
[2017-12-27] MEDS: ESCITALOPRAM 5 MG TAB PO SCH (21:16)
[2017-12-27] MEDS: ENOXAPARIN 40 MG/0.4 ML SYRINGE SQ SCH (21:16)
[2017-12-27] MEDS: MELATONIN 3 MG TABLET PO SCH (21:16)
--- NOTE | 2017-12-27 21:59 | HP ---
HISTORY AND PHYSICAL DATE OF ADMISSION: 12/27/2017 PRESENTING COMPLAINT: Fever. HISTORY OF PRESENTING COMPLAINT: This is an 87-year-old patient followed by visiting physician Dr. Hernandez. Chronic stable medical conditions include right-sided weakness from prior stroke, hypertension, memory impairment, seizure disorder. The patient had a stroke in 2016. The patient normally uses a walker. Assist is a 1. The lives in an [facility]. EMS was called out because for last 2 days, patient having fevers anywhere from 100.2-102. The patient also more lethargic, tired, run down, not his usual self. The patient found to have redness in the right lower extremity, felt to be cellulitis. The patient started on IV vancomycin in the ER. The patient himself is not a good historian, can only answer some simple questions. The patient's otherwise appetite is fair according to the patient. REVIEW OF SYSTEMS: CONSTITUTIONAL: Tired, fever. HEENT: Decreased hearing. RESPIRATORY: None. CARDIOVASCULAR: No chest pain. GASTROINTESTINAL: None. GENITOURINARY: None. MUSCULOSKELETAL: Some pain in the joints. DERMATOLOGICAL: Redness on the right lower extremity. HEMATOLOGICAL: None. LYMPHATICS: None. PSYCHIATRY: Forgetful. NEUROLOGICAL: Weakness on the right side from prior stroke and patient uses a walker. PAST MEDICAL HISTORY: Stroke with residual right-sided weakness, GI bleed, essential hypertension, memory impairment, prostate disorder, seizure disorder, stroke in May 2016, uses a walker, assistance a 1. Also had a PEG tube in the past that was removed, enlarged prostate with TURP, prostate cancer, hemorrhoids, indentation in the skull, was kicked in the head by horse as a child, cataract surgery. PAST SURGICAL HISTORY: Cardiac catheterization, TURP, cataract removal, lens implants, PEG tube that was removed, TURP. SOCIAL HISTORY: The patient resides at [facility] home in [place]. sporting goods salesperson is Liz Miranda, telephone #[phone]. No smoking. No alcohol history. FAMILY HISTORY: Stroke and testicular cancer. HOME MEDICATIONS: 1. Keppra 1000 mg q.12. 2. Lopressor 25 p.o. b.i.d. 3. Melatonin 6 mg q.h.s. 4. Zestril 10 mg p.o. daily. 5. Lasix 20 mg p.o. daily 2:00 p.m. 6. Lexapro 5 mg q.h.s. 7. Colace 100 mg p.o. daily. 8. Vitamin D3 400 units p.o. b.i.d. 9. Calcium with vitamin D3 one tablet p.o. daily. 10.Betamethasone valerate 0.1% topical daily p.r.n. 11.Tylenol 650 mg every 6 hours p.r.n. ALLERGIES: None. EXAMINATION: VITAL SIGNS: On presentation, temperature 97.1, pulse 71, respirations 18, blood pressure 123/60, pulse ox 97% on 2 L. At the [facility] home, patient was noted to have a temperature of 102.1. GENERAL APPEARANCE: Average build, lying in bed, tired-appearing. EYES: Pupils equal. Conjunctivae normal. HEENT: External nose and ears normal. Oral cavity dry. NECK: JVD not raised. Mass not palpable. RESPIRATORY: Effort normal. Lungs are clear. CARDIOVASCULAR: First and second sounds normal. No edema. ABDOMEN: Soft, nontender. Liver and spleen not palpable. LYMPHATIC: No lymph node palpable in neck or axillae. PSYCHIATRY: Patient able to answer simple questions. Mood and affect were normal. NEUROLOGICAL: Pupils equal. Cranial nerves grossly intact. Power on the right side is 4/5. DERMATOLOGICAL: Redness in the right lower extremity going down to the foot. INVESTIGATIONS: White count 16.8, hemoglobin 15. Potassium 4.5, BUN 30, creatinine 1.10. UA negative for leuko esterase, nitrite. Chest x-ray: No infiltrate reported. Tib-fibula x-ray: Unremarkable. CT scan of the brain shows old left frontal lobe infarct and atrophy. ASSESSMENT: 1. Acute cellulitis of the right lower extremity present with possible sepsis, temperature 102.[address] [facility] with a white count of 16.8 at the same time. The patient is more lethargic than baseline according to the staff at the [facility], possibly resulting in metabolic encephalopathy. 2. Right right-sided weakness from prior stroke. 3. Essential hypertension. 4. Chronic seizure disorder. PLAN: The patient did get a dose of vancomycin in the ER. Will start the patient on clindamycin from tomorrow. Home medications are resumed. Will give Lovenox for DVT prophylaxis. No family member is present right now. I expect the patient to respond to antibiotics. MMRAUL / IJHumberto: [id number] /
[2017-12-27] MEDS: CLINDAMYCIN 300 MG in DEXTROSE 5% IN WATER 50 ML IVPB SCH ×2 (23:30)
[2017-12-28] MEDS ORDERED: VANCOMYCIN 1,500 MG in SODIUM CHLORIDE 0.9% 250 ML IVPB SCH (06:00)
[2017-12-28] MEDS: CLINDAMYCIN 300 MG in DEXTROSE 5% IN WATER 50 ML IVPB SCH ×4 (07:11→17:12)
[2017-12-28] MEDS: LISINOPRIL 10 MG TAB PO SCH (07:12)
[2017-12-28] MEDS: METOPROLOL TARTRATE 25 MG TAB PO SCH ×2 (07:12→21:50)
[2017-12-28] MEDS: levETIRAcetam 500 MG TAB PO SCH ×2 (07:12→20:59)
[2017-12-28] MEDS: ENOXAPARIN 40 MG/0.4 ML SYRINGE SQ SCH (07:12)
[2017-12-28] MEDS: CALCIUM CARB-VIT D 500MG-200UN 1 EACH TAB PO SCH (07:12)
[2017-12-28] MEDS: ACETAMINOPHEN TAB 500 MG TAB PO PRN ×2 (07:29→21:51)
--- NOTE | 2017-12-28 14:10 | US ---
EXAMINATION TYPE: US venous doppler duplex LE RT DATE OF EXAM: 12/28/2017 1:11 PM COMPARISON: NONE CLINICAL HISTORY: pain and swollen in R leg. Right leg pain and swelling, exam done portable. SIDE PERFORMED: Right TECHNIQUE: The lower extremity deep venous system is examined utilizing real time linear array sonog heaven with graded compression, doppler sonography and color-flow sonography. VESSELS IMAGED: External Iliac Vein (EIV) Common Femoral Vein Deep Femoral Vein Greater Saphenous Vein * Femoral Vein Popliteal Vein Small Saphenous Vein * Proximal Calf Veins (* superficial vessels) Right Leg: Appears negative for DVT Grayscale, color doppler, spectral doppler imaging performed of the deep veins of the right lower ext remity. There is normal flow, compressibility, vascular waveforms. IMPRESSION: No ultrasound evidence for acute DVT in the right lower extremity.
--- NOTE | 2017-12-28 17:30 | PN ---
PROGRESS NOTE DATE OF SERVICE: 12/28/2017 PRESENTING COMPLAINT: Cellulitis with sepsis. INTERVAL HISTORY: This patient presented with acute cellulitis and sepsis affecting the right lower extremity. Redness has gone down, though some swelling of the leg was present. The patient did tolerate all his meals. Patient's son and [id number] are present. He is sitting up on a chair and overall feels a bit better. REVIEW OF SYSTEMS: Done for constitutional, cardiovascular, GI, pulmonary; relevant findings as above. CURRENT MEDICATIONS: Reviewed. They include clindamycin. PHYSICAL EXAMINATION: Temperature 98.6, pulse 68, respiration 16, blood pressure 126/58, pulse ox 95% on room air. GENERAL APPEARANCE: Sitting up on a chair. Awake. EYES: Pupils equal. Conjunctivae normal. HEENT: External appearance of nose and ears normal. Oral cavity normal. NECK: JVD not raised. Mass not palpable. RESPIRATORY: Effort normal. LUNGS: Fair air entry. CARDIOVASCULAR: First and second sounds normal. Some edema. ABDOMEN: Soft, non-tender. Liver and spleen not palpable. DERMATOLOGICAL: Redness of lateral extremity has actually gone down. Some swelling was present. INVESTIGATIONS: No blood work from today. ASSESSMENT: 1. Acute cellulitis of right lower extremity with sepsis, present on admission, with elevated white count and fever; clinically looking a bit better. 2. Swelling of the right lower extremity; could be dependent edema, but need to consider deep venous thrombosis. Will order an ultrasound. 3. Right-sided weakness from prior stroke. 4. Essential hypertension. 5. Chronic seizure disorder. PLAN: I had a lengthy talk with the patient and family at the bedside. Will use Silvadene cream with Kerlix and Rubio wrap. No IV fluids. Repeat labs in the morning. Ultrasound was ordered for the lower extremity by me earlier today that did come back negative for DVT. Looking at possible discharge tomorrow. The patient does well at the place he lives and actually gets about with a cane. MMODL / IJN: [id number] /
[2017-12-28] MEDS: MELATONIN 3 MG TABLET PO SCH (20:59)
[2017-12-28] MEDS: ESCITALOPRAM 5 MG TAB PO SCH (21:00)
[2017-12-28] MEDS ORDERED: SODIUM CHLORIDE 0.9% 1,000 ML IV SCH (22:15)
[2017-12-28] MEDS ORDERED: SODIUM CHLORIDE 0.9% 250 ML IV ONE (22:15)
--- NOTE | 2017-12-28 22:55 | XR ---
EXAMINATION TYPE: XR chest 2V DATE OF EXAM: 12/28/2017 COMPARISON: 12/27/2017 HISTORY: Hypoxemia TECHNIQUE: Frontal and lateral views of the chest are obtained. FINDINGS: There is poor inspiration with some infiltrate and atelectasis at the lung bases. There is mild pulmonary congestion. There are chest leads. Bony thorax is intact. IMPRESSION: New mild infiltrate and atelectasis at the lung bases compared to yesterday. Mild heart failure is possible.
[2017-12-29] MEDS: CLINDAMYCIN 300 MG in DEXTROSE 5% IN WATER 50 ML IVPB SCH ×4 (00:01→09:04)
[2017-12-29] MEDS: ACETAMINOPHEN TAB 500 MG TAB PO PRN (05:30)
[2017-12-29 07:19] LABS: Calcium 7.8 mg/dL (8.4-10.2)
[2017-12-29 07:20] LABS: Potassium 4.6 mmol/L (3.5-5.1)
[2017-12-29 07:24] LABS: Basophils % (A) 0 %; Eosinophils # (A) 0.1 k/uL (0-0.7); Eosinophils % (A) 1 %; HCT 43.6 % (39.0-53.0); Lymphocytes # (A) 1.6 k/uL (1.0-4.8); Lymphocytes % (A) 16 %; MCH 31.4 pg (25.0-35.0); MCHC 32.1 g/dL (31.0-37.0); Mean Platelet Volume 7.4; Monocytes # (A) 1.1 k/uL (0-1.0); Monocytes % (A) 11 %; Neutrophils # (A) 6.6 k/uL (1.3-7.7); Neutrophils % (A) 68 %; Platelet Count 143 k/uL (150-450); RBC 4.45 m/uL (4.30-5.90); RDW 13.1 % (11.5-15.5); WBC 9.6 k/uL (3.8-10.6)
[2017-12-29] MEDS ORDERED: CLINDAMYCIN 300 MG in DEXTROSE 5% IN WATER 50 ML IVPB SCH ×2 (08:00)
[2017-12-29] MEDS: ENOXAPARIN 40 MG/0.4 ML SYRINGE SQ SCH (09:04)
[2017-12-29] MEDS: CALCIUM CARB-VIT D 500MG-200UN 1 EACH TAB PO SCH (09:04)
[2017-12-29] MEDS: METOPROLOL TARTRATE 25 MG TAB PO SCH (09:04)
[2017-12-29] MEDS: LISINOPRIL 10 MG TAB PO SCH (09:04)
[2017-12-29] MEDS: levETIRAcetam 500 MG TAB PO SCH (09:04)
[2017-12-29] MEDS ORDERED: cefTRIAXone IN SWFI 1,000 MG/10 ML SYRINGE IVP SCH (12:45)
[2017-12-29 15:39] VITALS: BP 164/74; PULSE 72; RESP 15; TEMP 96.6
--- NOTE | 2018-01-01 08:10 | DS ---
DISCHARGE SUMMARY DATE OF ADMISSION: 12/27/2017. DATE OF DISCHARGE: 12/29/2017. FINAL DIAGNOSES: 1. Acute cellulitis right lower extremity with sepsis, present on admission. 2. Right lower lobe pneumonia suspect gram-negative organism, present on admission. 3. Right-sided weakness from prior stroke. 4. Essential hypertension. 5. Chronic seizure disorder. 6. Gait dysfunction at the baseline using a walker. HOSPITAL COURSE: This patient presented with a septic picture with cellulitis right lower extremity and also pneumonia, doing much better by the time of discharge. Told to wear Rubio wraps. DVT was ruled out. PHYSICAL EXAMINATION: Temperature 96.6, pulse 72, respirations 15, blood pressure 164/74, pulse ox 93% on room air. The redness in the lower extremity greatly improved. Lungs fair entry. DISCHARGE MEDICATIONS: 1. Tylenol 650 mg q.6h p.r.n. 2. Calcium 600 vitamin D3 one tablet p.o. daily. 3. Zestril 10 mg a day. 4. Lopressor 25 mg b.i.d. 5. Keppra 1000 mg p.o. q.12. 6. Betamethasone 0.1% topical daily p.r.n. 7. Lexapro 5 mg q.h.s. 8. Melatonin 6 mg q.h.s. 9. Lasix 40 mg on Tuesday, Tuesday and Tuesday. 10.Silvadene cream topical b.i.d. 11.Bactrim DS 1 tablet p.o. q.12; 10 tablets. FOLLOWUP: Follow up with Dr. Hernandez in 3 days. Labs, CBC, BMP in 3 days. Silvadene cream with Kerlix and Rubio wrap to be used. Discussion and discharge planning more than 35 minutes. Copy to visiting physician Dr. Hernandez. MMODL / IJN: [id number] /
== END 2017-12-29 17:05 | disposition home or self-care (01) | DRG 871 ==
LOC: EC 13:23 → 5MS5E 15:48
PROVIDERS: ADMIT Hospitalist; ATTEND Hospitalist
DX: A41.9 Sepsis, unspecified organism (principal); G93.40 Encephalopathy, unspecified; J15.6 Pneumonia due to other Gram-negative bacteria; I69.351 Hemiplegia and hemiparesis following cerebral infarction affecting right dominant side; L03.115 Cellulitis of right lower limb; G40.909 Epilepsy, unspecified, not intractable, without status epilepticus; I10 Essential (primary) hypertension; N40.0 Benign prostatic hyperplasia without lower urinary tract symptoms; Z79.899 Other long term (current) drug therapy; Z80.43 Family history of malignant neoplasm of testis; Z82.3 Family history of stroke; Z85.46 Personal history of malignant neoplasm of prostate; Z98.42 Cataract extraction status, left eye; Z98.41 Cataract extraction status, right eye; Z96.1 Presence of intraocular lens; Z90.79 Acquired absence of other genital organ(s); R26.9 Unspecified abnormalities of gait and mobility
CPT/HCPCS: 36415; 70450; 71046; 80048; 80053; 81001; 85025; 87040; 87086; 93005; 96365; 96366; 99285

== ENCOUNTER 2018-03-21 12:29 | Inpatient (IN) | payer MEDICARE, BC ==
[2018-03-21] MEDS ORDERED: IPRATROPIUM-ALBUTEROL 3 ML NEB INHALATION STA (13:38)
[2018-03-21 14:10] LABS: Albumin 4.3 g/dL (3.5-5.0); Basophils # (A) 0.1 k/uL (0-0.2); Basophils % (A) 0 %; Calcium 9.5 mg/dL (8.4-10.2); Eosinophils # (A) 0.1 k/uL (0-0.7); Eosinophils % (A) 1 %; HCT 51.4 % (39.0-53.0); HGB 16.6 gm/dL (13.0-17.5); Lymphocytes # (A) 1.2 k/uL (1.0-4.8); Lymphocytes % (A) 8 %; MCH 31.2 pg (25.0-35.0); MCHC 32.2 g/dL (31.0-37.0); MCV 96.9 fL (80.0-100.0); Magnesium 1.9 mg/dL (1.6-2.3); Mean Platelet Volume 7.6; Monocytes # (A) 0.8 k/uL (0-1.0); Monocytes % (A) 5 %; Neutrophils # (A) 12.7 k/uL (1.3-7.7); Neutrophils % (A) 84 %; Platelet Count 226 k/uL (150-450); Potassium 4.6 mmol/L (3.5-5.1); RBC 5.31 m/uL (4.30-5.90); RDW 12.6 % (11.5-15.5); Total Bilirubin 0.8 mg/dL (0.2-1.3); Total Protein 7.3 g/dL (6.3-8.2)
--- NOTE | 2018-03-21 14:14 | ED ---
SOB HPI - General Chief Complaint: Shortness of Breath Stated Complaint: congestion, cough Time Seen by Provider: 03/21/18 13:19 Source: family, RN notes reviewed, old records reviewed Mode of arrival: wheelchair Limitations: no limitations - History of Present Illness Initial Comments: This is an 88-year-old male to the ER for evaluation. Patient was complaining of shortness of breath. Patient's presenting from extended care facility with increased cough and increased sputum production and low oxygen level. She has history of high blood pressure heart disease. No history of COPD or smoking. No recent travel history no sick contacts. Patient is not complaining of pain. Patient's history is significantly limited by the fact that he is currently aphasic, history obtained from patient's family and chart MD Complaint: shortness of breath, cough -: days(s) (2) Severity: mild Severity scale (1-10): 3 Quality: aching Consistency: constant Improves With: nothing Worsens With: nothing Known History Of: congestive heart failure Context: recent URI Associated Symptoms: denies other symptoms Treatments Prior to Arrival: none - Related Data Home Medications Medication Instructions Recorded Confirmed Calcium Carbonate/Vitamin D3 1 tab PO DAILY 02/04/17 03/21/18 [Calcium 600-Vit D3 800 Tab] Cholecalciferol [Vitamin D3] 400 unit PO DAILY 03/21/18 03/21/18 Escitalopram [Lexapro] 10 mg PO DAILY 03/21/18 03/21/18 Melatonin 10 mg PO HS 03/21/18 03/21/18 traZODone HCL 50 mg PO HS 03/21/18 03/21/18 Previous Rx's Medication Instructions Recorded Lisinopril [Zestril] 10 mg PO DAILY #30 tab 02/08/17 Metoprolol Tartrate [Lopressor] 25 mg PO BID #60 tab 02/08/17 levETIRAcetam [Keppra] 1,000 mg PO Q12HR #120 tab 06/15/17 Furosemide [Lasix] 40 mg PO MOWEFR #30 tablet 12/29/17 Allergies Allergy/AdvReac Type Severity Reaction Status Date / Time No Known Allergies Allergy Verified 03/21/18 13:33 Review of Systems ROS Statement: Those systems with pertinent positive or pertinent negative responses have been documented in the HPI. ROS Other: All systems not noted in ROS Statement are negative. Past Medical History Past Medical History: CVA/TIA, GI Bleed, Hypertension, Memory Impairment, Pneumonia, Prostate Disorder, Seizure Disorder Additional Past Medical History / Comment(s): limited historian: stroke May 30, 2016. per family pt ambulates with walker and assistance of 1, uti, 2016 had cva and difficulting swallowing-had a peg tube inserted. by august 2016 pt improved and was able to swallow so it was removed .enlarged prostate(hx turp) and 2009 had prostate cancer(no sx just raditaion),hemorrhoids, indentation in skull-was kicked in head by horse when as a child", cataracts(sx-lens implants) . per pt's son-pt had a pne vaccine just few weeks ago write unable to verify date at this time History of Any Multi-Drug Resistant Organisms: None Reported Past Surgical History: Heart Catheterization, Prostate Surgery Additional Past Surgical History / Comment(s): cataracts removed-lens implants.peg tube-since removed,turp, Past Anesthesia/Blood Transfusion Reactions: No Reported Reaction Additional Past Anesthesia/Blood Transfusion Reaction / Comment(s): per pt's son -pt resides at [facility] in [facility] [phone]. contact agent at [facility] is brian swartz. Past Psychological History: No Psychological Hx Reported Smoking Status: Never smoker Past Alcohol Use History: None Reported Past Drug Use History: None Reported - Past Family History Mother Family Medical History: CVA/TIA Father Family Medical History: No Reported History, Unable to Obtain Brother(s) Family Medical History: Cancer Additional Family Medical History / Comment(s): testicular cancer. General Exam Limitations: altered mental status, physical limitation General appearance: alert, in no apparent distress Head exam: Present: atraumatic, normocephalic, normal inspection Eye exam: Present: normal appearance, PERRL, EOMI. Absent: scleral icterus, conjunctival injection, periorbital swelling ENT exam: Present: normal exam, mucous membranes moist Neck exam: Present: normal inspection. Absent: tenderness, meningismus, lymphadenopathy Respiratory exam: Present: normal lung sounds bilaterally. Absent: respiratory distress, wheezes, rales, rhonchi, stridor Cardiovascular Exam: Present: regular rate, normal rhythm, normal heart sounds. Absent: systolic murmur, diastolic murmur, rubs, gallop, clicks GI/Abdominal exam: Present: soft, normal bowel sounds. Absent: distended, tenderness, guarding, rebound, rigid Extremities exam: Present: normal inspection, full ROM, normal capillary refill. Absent: tenderness, pedal edema, joint swelling, calf tenderness Back exam: Present: normal inspection Neurological exam: Present: alert, oriented X3, CN II-XII intact Psychiatric exam: Present: normal affect, normal mood Skin exam: Present: warm, dry, intact, normal color. Absent: rash Course Vital Signs 03/21/18 03/21/18 03/21/18 13:00 13:30 13:40 Temperature 97.8 F Pulse Rate 96 100 96 Respiratory 18 18 18 Rate Blood Pressure 154/79 145/71 133/70 O2 Sat by Pulse 87 L 92 L Oximetry 03/21/18 03/21/18 03/21/18 13:50 14:00 14:11 Temperature Pulse Rate 97 97 102 H Respiratory 18 28 H Rate Blood Pressure 133/70 133/70 O2 Sat by Pulse 93 L 93 L Oximetry 03/21/18 03/21/18 14:25 15:00 Temperature Pulse Rate 98 113 H Respiratory 18 Rate Blood Pressure 141/61 O2 Sat by Pulse 90 L Oximetry - Reevaluation(s) Reevaluation #1: 03/21/18 14:14 Medical record is reviewed Reevaluation #2: 03/21/18 15:17 Patient with no real significant clinical improvement despite therapy Medical Decision Making - Medical Decision Making 88 male the ER for altered mental status cough and shortness of breath, positive pneumonia, place an IV antibiotics and to be admitted for continued evaluation of mental status breathing treatments and monitoring of cardiopulmonary improvement - Lab Data Result diagrams: 03/21/18 13:50 03/21/18 13:50 Lab Results 03/21/18 03/21/18 03/21/18 Range/Units 13:50 13:50 13:50 WBC 15.0 H (3.8-10.6) k/uL RBC 5.31 (4.30-5.90) m/uL Hgb 16.6 (13.0-17.5) gm/dL Hct 51.4 (39.0-53.0) % MCV 96.9 (80.0-100.0) fL MCH 31.2 (25.0-35.0) pg MCHC 32.2 (31.0-37.0) g/dL RDW 12.6 (11.5-15.5) % Plt Count 226 (150-450) k/uL Neutrophils % 84 % Lymphocytes % 8 % Monocytes % 5 % Eosinophils % 1 % Basophils % 0 % Neutrophils # 12.7 H (1.3-7.7) k/uL Lymphocytes # 1.2 (1.0-4.8) k/uL Monocytes # 0.8 (0-1.0) k/uL Eosinophils # 0.1 (0-0.7) k/uL Basophils # 0.1 (0-0.2) k/uL PT (9.0-12.0) sec INR (<1.2) APTT (22.0-30.0) sec Sodium 140 (137-145) mmol/L Potassium 4.6 (3.5-5.1) mmol/L Chloride 103 (98-107) mmol/L Carbon Dioxide 25 (22-30) mmol/L Anion Gap 12 mmol/L BUN 17 (9-20) mg/dL Creatinine 1.04 (0.66-1.25) mg/dL Est GFR (CKD-EPI)AfAm 75 (>60 ml/min/1.73 sqM) Est GFR (CKD-EPI)NonAf 65 (>60 ml/min/1.73 sqM) Glucose 98 (74-99) mg/dL Calcium 9.5 (8.4-10.2) mg/dL Magnesium 1.9 (1.6-2.3) mg/dL Total Bilirubin 0.8 (0.2-1.3) mg/dL AST 26 (17-59) U/L ALT 39 (21-72) U/L Alkaline Phosphatase 56 (38-126) U/L Total Creatine Kinase 85 (55-170) U/L CK-MB (CK-2) 1.5 (0.0-2.4) ng/mL CK-MB (CK-2) Rel Index 1.8 Troponin I <0.012 (0.000-0.034) ng/mL NT-Pro-B Natriuret Pep pg/mL Total Protein 7.3 (6.3-8.2) g/dL Albumin 4.3 (3.5-5.0) g/dL 03/21/18 03/21/18 Range/Units 13:50 13:50 WBC (3.8-10.6) k/uL RBC (4.30-5.90) m/uL Hgb (13.0-17.5) gm/dL Hct (39.0-53.0) % MCV (80.0-100.0) fL MCH (25.0-35.0) pg MCHC (31.0-37.0) g/dL RDW (11.5-15.5) % Plt Count (150-450) k/uL Neutrophils % % Lymphocytes % % Monocytes % % Eosinophils % % Basophils % % Neutrophils # (1.3-7.7) k/uL Lymphocytes # (1.0-4.8) k/uL Monocytes # (0-1.0) k/uL Eosinophils # (0-0.7) k/uL Basophils # (0-0.2) k/uL PT 10.4 (9.0-12.0) sec INR 1.1 (<1.2) APTT 23.8 (22.0-30.0) sec Sodium (137-145) mmol/L Potassium (3.5-5.1) mmol/L Chloride (98-107) mmol/L Carbon Dioxide (22-30) mmol/L Anion Gap mmol/L BUN (9-20) mg/dL Creatinine (0.66-1.25) mg/dL Est GFR (CKD-EPI)AfAm (>60 ml/min/1.73 sqM) Est GFR (CKD-EPI)NonAf (>60 ml/min/1.73 sqM) Glucose (74-99) mg/dL Calcium (8.4-10.2) mg/dL Magnesium (1.6-2.3) mg/dL Total Bilirubin (0.2-1.3) mg/dL AST (17-59) U/L ALT (21-72) U/L Alkaline Phosphatase (38-126) U/L Total Creatine Kinase (55-170) U/L CK-MB (CK-2) (0.0-2.4) ng/mL CK-MB (CK-2) Rel Index Troponin I (0.000-0.034) ng/mL NT-Pro-B Natriuret Pep 211 pg/mL Total Protein (6.3-8.2) g/dL Albumin (3.5-5.0) g/dL - EKG Data -: EKG Interpreted by Me (EKG shows sinus rhythm rate of 98, MA 166, QRS 84, QTc 426) EKG shows normal: sinus rhythm Rate: normal - Radiology Data Radiology results: report reviewed (Chest x-ray is positive for pneumonia), image reviewed Disposition Clinical Impression: Acute exacerbation of chronic obstructive airways disease, Community acquired pneumonia, Hypoxia, Pneumonia Disposition: ADMITTED IP TO THIS HOSP Condition: Fair Is patient prescribed a controlled substance at d/c from ED?: No Referrals: Luis Armando Hernandez MD [Primary Care Provider] - 1-2 days
[2018-03-21 14:18] LABS: INR 1.1 (<1.2); Partial Thromboplastin Time 23.8 sec (22.0-30.0); Prothrombin Time 10.4 sec (9.0-12.0)
[2018-03-21 14:27] LABS: Creatine Kinase 85 U/L (55-170)
--- NOTE | 2018-03-21 14:31 | XR ---
EXAMINATION TYPE: XR chest 2V DATE OF EXAM: 03/21/2018 COMPARISON: Prior chest 12/28/2017 HISTORY: Difficulty breathing, shortness of breath and cough TECHNIQUE: Frontal and lateral views of the chest are obtained. FINDINGS: Increased AP diameter of the chest and retrosternal airspace may be indicative of underlyi ng COPD. There is some improvement in aeration posteriorly. There is overlying artifact. No evident p neumothorax or pleural effusion. Cardiomediastinal silhouette, pulmonary vascularity and juan josé are not significantly changed, heart may be enlarged but image May accentuate the appearance due to rotation . IMPRESSION: Suspect some improvement in aeration. Difficult to exclude basilar airspace disease post eriorly versus atelectasis, correlate for pneumonia. Rotated exam. Follow-up suggested.
[2018-03-21 14:39] LABS: Creatine Kinase MB 1.5 ng/mL (0.0-2.4); Troponin I <0.012 ng/mL (0.000-0.034)
[2018-03-21] MEDS ORDERED: PIPERACILLIN-TAZOBACTAM 3.375 GM in DEXTROSE/WATER 1 50ML.BAG IVPB STA (15:14)
[2018-03-21] MEDS ORDERED: PNEUMONIA PROTOCOL UTILIZED 1 EACH MISC PO PRN (15:14)
[2018-03-21] MEDS ORDERED: LEVOFLOXACIN 750MG-D5W PMX 750 MG in DEXTROSE/WATER 1 150ML.BAG IVPB STA (15:14)
[2018-03-21] MEDS: IPRATROPIUM-ALBUTEROL 3 ML NEB INHALATION SCH ×2 (15:39→19:39)
[2018-03-21] MEDS ORDERED: ACETAMINOPHEN TAB 325 MG TAB PO PRN (16:19)
[2018-03-21] MEDS ORDERED: NALOXONE 0.4 MG/ML 1 ML VIAL IV PRN (16:19)
[2018-03-21] MEDS ORDERED: HYDROcodone/APAP 5-325MG 1 EACH TAB PO PRN (16:19)
[2018-03-21] MEDS ORDERED: guaiFENesin 600 MG TABLET.ER PO PRN (16:20)
[2018-03-21] MEDS: SODIUM CHLORIDE 0.9% 1,000 ML IV SCH (16:31)
--- NOTE | 2018-03-21 17:29 | P.HPIM ---
History of Present Illness H&P Date: 03/21/18 Chief Complaint: Pneumonia 88-year-old male with past medical history of hypertension, seizures, previous CVA with aphasia, probable CHF, history of prostate cancer status post radiation presents to the ED for cough and hypoxia. His son and son's is present at bedside to give most of the history as patient is a phasic. Son reports patient waking up this morning with a cough with copious amounts of sputum and mucus. Patient lives in a foster correction, and was advised by his food server to go to the ED after patient was found to be hypoxic and after listening to his lungs. Of note, patient is able to ambulate with the help of a rolling walker with assistance. He was recently hospitalized and treated with IV antibiotics for cellulitis in November 2017. In the ED, patient was found to be hypoxic at 87%. Chest x-ray shows possible pneumonia. CBC shows a leukocytosis of 15. Troponin is negative. CMP is negative. BNP is 211. EKG shows normal sinus rhythm. Patient is admitted for treatment of pneumonia. Review of Systems All systems: negative Past Medical History Past Medical History: CVA/TIA, GI Bleed, Hypertension, Memory Impairment, Pneumonia, Prostate Disorder, Seizure Disorder Additional Past Medical History / Comment(s): limited historian: stroke May 30, 2016. per family pt ambulates with walker and assistance of , 2016 had cva and difficulting swallowing-had a peg tube inserted. by august 2016 pt improved and was able to swallow so it was removed .enlarged prostate(hx turp) and 2009 had prostate cancer(no sx just raditaion),hemorrhoids, indentation in skull-was kicked in head by horse when as a child", cataracts(sx-lens implants) . per pt's son-pt had a pne vaccine just few weeks ago write unable to verify date at this time History of Any Multi-Drug Resistant Organisms: None Reported Past Surgical History: Heart Catheterization, Prostate Surgery Additional Past Surgical History / Comment(s): cataracts removed-lens implants.peg tube-since removed,turp, Past Anesthesia/Blood Transfusion Reactions: No Reported Reaction Additional Past Anesthesia/Blood Transfusion Reaction / Comment(s): per pt's son -pt resides at [facility] [phone]. personnel officer at [facility] is brian swartz. Past Psychological History: No Psychological Hx Reported Smoking Status: Never smoker Past Alcohol Use History: None Reported Past Drug Use History: None Reported - Past Family History Mother Family Medical History: CVA/TIA Father Family Medical History: No Reported History, Unable to Obtain Brother(s) Family Medical History: Cancer Additional Family Medical History / Comment(s): testicular cancer. Medications and Allergies Home Medications Medication Instructions Recorded Confirmed Type Calcium Carbonate/Vitamin D3 1 tab PO DAILY 02/04/17 03/21/18 History [Calcium 600-Vit D3 800 Tab] Lisinopril [Zestril] 10 mg PO DAILY #30 tab 02/08/17 03/21/18 Rx Metoprolol Tartrate [Lopressor] 25 mg PO BID #60 tab 02/08/17 03/21/18 Rx levETIRAcetam [Keppra] 1,000 mg PO Q12HR #120 tab 06/15/17 03/21/18 Rx Furosemide [Lasix] 40 mg PO MOWEFR #30 tablet 12/29/17 03/21/18 Rx Cholecalciferol [Vitamin D3] 400 unit PO DAILY 03/21/18 03/21/18 History Escitalopram [Lexapro] 10 mg PO DAILY 03/21/18 03/21/18 History Melatonin 10 mg PO HS 03/21/18 03/21/18 History traZODone HCL 50 mg PO HS 03/21/18 03/21/18 History Allergies Allergy/AdvReac Type Severity Reaction Status Date / Time No Known Allergies Allergy Verified 03/21/18 13:33 Physical Exam Vitals: Vital Signs Temp Pulse Resp BP Pulse Ox 03/21/18 16:32 104 H 18 109/70 92 L 03/21/18 16:17 80 18 125/79 100 03/21/18 15:00 113 H 18 141/61 90 L 03/21/18 14:25 98 03/21/18 14:11 102 H 03/21/18 14:00 97 28 H 133/70 93 L 03/21/18 13:50 97 18 133/70 93 L 03/21/18 13:40 96 18 133/70 92 L 03/21/18 13:30 100 18 145/71 03/21/18 13:00 97.8 F 96 18 154/79 87 L Intake and Output 03/21/18 03/21/18 03/21/18 06:59 14:59 22:59 Other: Weight 70.307 kg General: [non toxic], [no distress], [appears at stated age] Derm: [warm], [dry] Head: [atraumatic], [normocephalic], [symmetric] Eyes: [EOMI], [no lid lag], [anicteric sclera] Mouth: [no lip lesion], [mucus membranes moist] Cardiovascular: [S1S2 reg], [no murmur], [positive DP pulse bilateral] Lungs: [Coarse breath sounds bilateral], [no rhonchi, no rales] , [no accessory muscle use] Abdominal: [soft], [ nontender to palpation], [no guarding], [no appreciable organomegaly] Ext: [no gross muscle atrophy], [1+ edema], [no contractures] Psych: [Alert], [oriented], [appropriate affect] Results CBC & Chem 7: 03/21/18 13:50 03/21/18 13:50 Labs: Abnormal Lab Results - Last 24 Hours (Table) 03/21/18 Range/Units 13:50 WBC 15.0 H (3.8-10.6) k/uL Neutrophils # 12.7 H (1.3-7.7) k/uL Thrombosis Risk Factor Assmnt - Choose All That Apply Any of the Below Risk Factors Present?: Yes Each Factor Represents 1 point: Swollen legs (current) Other Risk Factors: Yes Each Risk Factor Represents 3 Points: Age 75 years or older Thrombosis Risk Factor Assessment Total Risk Factor Score: 4 Thrombosis Risk Factor Assessment Level: Moderate Risk Assessment and Plan Assessment: Assessment and Plan 1. Pneumonia: Seen on CXR. Since he has been admitted within the last 3 months for IV antibiotics, I will treat him for HCAP. Tylenol 650 mg PO Q6 PRN for fever. DuoNeb QID scheduled. Start Levofloxacin 750 mg IV QD and Pipercillin/ Tazobactam 3.375g IV TID. Mucinex 600 mg PO BID. O2 per NC to maintain O2 sat > 92%. FU BCx, Sputum Cx 2. Hypertension: BP 109/70. Continue Lisinopril 10 mg PO QD, Metoprolol 25 mg PO BID. Monitor vitals, adjust medications as necessary. 3. DVT/GI Prophylaxis: Lovenox 40 mg SUBCUT QD. Protonix 40 mg PO QD. Patient is being treated for HCAP. He is pending clinical improvement.
[2018-03-21] MEDS: traZODone HCL 50 MG TAB PO SCH (20:18)
[2018-03-21] MEDS: MELATONIN 5 MG TABLET PO SCH (20:18)
[2018-03-21] MEDS: levETIRAcetam 500 MG TAB PO SCH (20:19)
[2018-03-21] MEDS: METOPROLOL TARTRATE 25 MG TAB PO SCH (20:19)
[2018-03-22] MEDS ORDERED: PIPERACILLIN-TAZOBACTAM 3.375 GM in DEXTROSE/WATER 1 50ML.BAG IVPB SCH
[2018-03-22] MEDS: PIPERACILLIN-TAZOBACTAM 3.375 GM in DEXTROSE/WATER 1 50ML.BAG IVPB SCH ×4 (00:39→23:50)
[2018-03-22] MEDS: SODIUM CHLORIDE 0.9% 1,000 ML IV SCH ×3 (03:42→21:23)
[2018-03-22] MEDS: levETIRAcetam 500 MG TAB PO SCH (08:05)
[2018-03-22] MEDS: FUROSEMIDE 40 MG TAB PO SCH (08:05)
[2018-03-22] MEDS: ESCITALOPRAM 10 MG TAB PO SCH (08:05)
[2018-03-22] MEDS: METOPROLOL TARTRATE 25 MG TAB PO SCH ×2 (08:05→21:22)
[2018-03-22] MEDS: LISINOPRIL 10 MG TAB PO SCH (08:05)
[2018-03-22] MEDS: PANTOPRAZOLE 40 MG TABLET PO SCH (08:06)
[2018-03-22] MEDS: IPRATROPIUM-ALBUTEROL 3 ML NEB INHALATION SCH ×4 (08:14→21:24)
[2018-03-22] MEDS: ENOXAPARIN 40 MG/0.4 ML SYRINGE SQ SCH (08:31)
[2018-03-22 09:49] LABS: HCT 42.1 % (39.0-53.0); MCH 31.8 pg (25.0-35.0); MCHC 32.3 g/dL (31.0-37.0); MCV 98.5 fL (80.0-100.0); Mean Platelet Volume 7.1; Platelet Count 154 k/uL (150-450); RBC 4.27 m/uL (4.30-5.90); RDW 12.8 % (11.5-15.5); WBC 7.8 k/uL (3.8-10.6)
[2018-03-22 09:50] LABS: HGB 13.6 gm/dL (13.0-17.5)
--- NOTE | 2018-03-22 13:41 | P.PN ---
Subjective Progress Note Date: 03/22/18 Principal diagnosis: pneumonia patient was seen and examined. No acute events overnight. Reports of patient coughing and choking on thin liquids by RN. Speech therapy consult placed, requires video swallow. The of the son of the patient reports that the patient has improved slightly, is coughing up less. Patient is a phasic. He looks to be in no acute distress. He is on 3 L nasal cannula saturating 98%. Objective - Vital Signs Vital signs: Vital Signs Temp 98 F 03/22/18 12:31 Pulse 74 03/22/18 12:31 Resp 18 03/22/18 12:31 BP 148/70 03/22/18 12:31 Pulse Ox 98 03/22/18 12:31 Intake & Output 03/21/18 03/22/18 03/22/18 18:59 06:59 18:59 Intake Total 1580 Balance 1580 Weight 70.307 kg 70.307 kg Intake: Intake, IV Titration 500 Amount Piperacillin-Tazobactam 3 100 .375 gm In Dextrose/Water 1 50ml.bag @ 12.5 mls/hr IVPB Q8HR URMILA Rx#: [id number] Sodium Chloride 0.9% 1, 400 000 ml @ 100 mls/hr IV . Q10H URMILA Rx#:[id number] Oral 1080 Other: Voiding Method Diaper Diaper Diaper - Exam General: [non toxic], [no distress], [appears at stated age] Derm: [warm], [dry] Head: [atraumatic], [normocephalic], [symmetric] Eyes: [EOMI], [no lid lag], [anicteric sclera] Mouth: [no lip lesion], [mucus membranes moist] Cardiovascular: [S1S2 reg], [no murmur], [positive DP pulse bilateral] Lungs: [Coarse breath sounds bilaterally with good air movement and poor effort] , [no rhonchi, no rales] , [no accessory muscle use] Abdominal: [soft], [ nontender to palpation], [no guarding], [no appreciable organomegaly] Ext: [no gross muscle atrophy], [1+ edema], [no contractures] Psych: [Alert], [oriented], [appropriate affect] - Labs CBC & Chem 7: 03/22/18 09:22 03/21/18 13:50 Labs: Abnormal Lab Results - Last 24 Hours (Table) 03/21/18 03/22/18 Range/Units 13:50 09:22 WBC 15.0 H (3.8-10.6) k/uL RBC 4.27 L (4.30-5.90) m/uL Neutrophils # 12.7 H (1.3-7.7) k/uL Assessment and Plan Assessment: Assessment and Plan 1. Pneumonia: Seen on CXR. Since he has been admitted within the last 3 months for IV antibiotics, I will treat him for HCAP. Tylenol 650 mg PO Q6 PRN for fever. DuoNeb QID scheduled. Continue Levofloxacin 750 mg IV QD and Pipercillin/ Tazobactam 3.375g IV TID. Mucinex 600 mg PO BID. O2 per NC to maintain O2 sat > 92%. FU BCx, Sputum Cx, repeat CXR 2. Dysphagia: Failed speech therapy evaluation. FU Video swallow, ST recommendations 3. Hypertension: BP 148/70. Continue Lisinopril 10 mg PO QD, Metoprolol 25 mg PO BID. Monitor vitals, adjust medications as necessary. 4. DVT/GI Prophylaxis: Lovenox 40 mg SUBCUT QD. Protonix 40 mg PO QD. Patient is being treated for HCAP. He requires 3L NS to maintain O2 sat > 92%. Will follow video swallow. Pending clinical improvement.
--- NOTE | 2018-03-22 14:12 | FL ---
EXAMINATION TYPE: FL barium swallow w video DATE OF EXAM: 03/22/2018 MODIFIED SWALLOW / DEGLUTITION STUDY CLINICAL HISTORY: Prior CVA. Dysphagia. Possible left-sided. TECHNIQUE: Deglutition study is performed utilizing thin liquid barium, honey and nectar thick liqui d barium, barium thick applesauce, and barium coated cracker. 3.11 minutes of fluoroscopy time was ut ilized with 0 fluoroscopic images saved as the exam was video recorded. COMPARISON: None. FINDINGS: The oral and pharyngeal phases show delayed initiation and propagation with all modalities tested as well as premature spill. Normal mastication is seen with solid modalities tested. Repeated laryngeal penetration was seen with the thin barium consistency, honey barium consistency and once w ith nectar thick. No laryngeal penetration was seen appearing thick applesauce with the barium coated cracker. Significant vallecular retention may contribute to the jessica aspiration was seen with thin barium consistency at the end of the examination without eliciting an immediate cough reflex. Delayed cough reflex was identified. No significant pharyngeal residue was appreciated. IMPRESSION: Laryngeal aspiration with thin consistency of the initial examination significant vallecu lar retention, possibly contributing. Laryngeal penetration was seen with the liquid barium consisten cy, honey thick consistency and once with nectar thick. Please refer to speech therapist notes for fu rther details if necessary.
--- NOTE | 2018-03-22 14:34 | XR ---
EXAMINATION TYPE: XR chest 2V DATE OF EXAM: 03/22/2018 COMPARISON: 03/21/2018 HISTORY: Pneumonia. Aspiration. TECHNIQUE: Frontal and lateral views of the chest are obtained. FINDINGS: Persistent left basilar airspace disease is seen on the lateral view. Some patient motion is identified. Cardiomediastinal silhouette is enlarged. There is generalized osseous demineralizatio n and multilevel degenerative change of the thoracic spine with exaggerated thoracic kyphosis. Healed posterior right rib fractures are redemonstrated. No sizable pneumothorax. IMPRESSION: Cyst and left basilar consolidation again suspicious for pneumonia.
[2018-03-22] MEDS ORDERED: ACETAMINOPHEN IV (For NPO) 1,000 MG in EMPTY BAG 1 BAG IVPB PRN (17:56)
[2018-03-22] MEDS: levETIRAcetam IV 1,000 MG in SALINE 1 100ML.BAG IVPB SCH (21:20)
[2018-03-22] MEDS: MELATONIN 5 MG TABLET PO SCH (21:22)
[2018-03-22] MEDS: traZODone HCL 50 MG TAB PO SCH (21:22)
[2018-03-23] MEDS: IPRATROPIUM-ALBUTEROL 3 ML NEB INHALATION SCH ×4 (07:45→19:50)
[2018-03-23] MEDS: PANTOPRAZOLE 40 MG TABLET PO SCH (08:22)
[2018-03-23] MEDS: levETIRAcetam IV 1,000 MG in SALINE 1 100ML.BAG IVPB SCH ×2 (08:22→20:43)
[2018-03-23] MEDS: ENOXAPARIN 40 MG/0.4 ML SYRINGE SQ SCH (08:22)
[2018-03-23] MEDS: METOPROLOL TARTRATE 25 MG TAB PO SCH ×2 (08:23→20:52)
[2018-03-23] MEDS: LISINOPRIL 10 MG TAB PO SCH (08:23)
[2018-03-23] MEDS: ESCITALOPRAM 10 MG TAB PO SCH (08:23)
[2018-03-23] MEDS: SODIUM CHLORIDE 0.9% 1,000 ML IV SCH (08:30)
[2018-03-23] MEDS: PIPERACILLIN-TAZOBACTAM 3.375 GM in DEXTROSE/WATER 1 50ML.BAG IVPB SCH ×3 (09:23→23:02)
[2018-03-23] MEDS: DEXTROSE 5%-0.9% NACL 1,000 ML IV SCH ×2 (12:56→23:02)
--- NOTE | 2018-03-23 14:19 | P.PN ---
Subjective Progress Note Date: 03/23/18 Principal diagnosis: Pneumonia Patient was seen and examined. No acute events overnight. Son of the patient reports great improvement in his mental status since yesterday. He is now began to speak, although limited. He denies any pain. He denies any shortness of breath. He remains on 5 L nasal cannula to maintain oxygen saturation greater than 90%. Chest x-ray ordered yesterday, similar to admission. Patient remains nothing by mouth for possible swallow evaluation tomorrow Objective - Vital Signs Vital signs: Vital Signs Temp 99.4 F 03/23/18 04:25 Pulse 87 03/23/18 11:33 Resp 18 03/23/18 04:25 BP 130/65 03/23/18 04:25 Pulse Ox 96 03/23/18 04:25 Intake & Output 03/22/18 03/23/18 03/23/18 18:59 06:59 18:59 Intake Total 1780 Balance 1780 Intake: IV 1060 ACETAMINOPHEN IV (For NPO 1060 ) 1,000 mg In Empty Bag 1 bag @ 400 mls/hr IVPB Q6HR PRN Rx#:[id number] Oral 720 Other: Voiding Method Diaper Diaper Diaper # Voids 3 3 4 - Exam General: [non toxic], [no distress], [appears at stated age] Derm: [warm], [dry] Head: [atraumatic], [normocephalic], [symmetric] Eyes: [EOMI], [no lid lag], [anicteric sclera] Mouth: [no lip lesion], [mucus membranes moist] Cardiovascular: [S1S2 reg], [no murmur], [positive DP pulse bilateral] Lungs: [Clear breath sounds bilaterally with good air movement and poor effort] , [no rhonchi, no rales] , [no accessory muscle use] Abdominal: [soft], [ nontender to palpation], [no guarding], [no appreciable organomegaly] Ext: [no gross muscle atrophy], [1+ edema], [no contractures] Psych: [Alert], [oriented], [appropriate affect] - Labs CBC & Chem 7: 03/22/18 09:22 03/21/18 13:50 Labs: Microbiology - Last 24 Hours (Table) 03/21/18 13:50 Blood Culture - Preliminary Blood No Growth after 24 hours Assessment and Plan Assessment: Assessment and Plan 1. Pneumonia: Seen on CXR. Since he has been admitted within the last 3 months for IV antibiotics, I will treat him for HCAP. Tylenol 650 mg PO Q6 PRN for fever. DuoNeb QID scheduled. Continue Levofloxacin 750 mg IV QD and Pipercillin/ Tazobactam 3.375g IV TID. Mucinex 600 mg PO BID. BCx negative at 24H. O2 per NC to maintain O2 sat > 92%. FU BCx (final), Sputum Cx 2. Dysphagia: Failed speech therapy evaluation. Change all by mouth medications to IV if possible. FU Video swallow, ST recommendations 3. h/o CVA: Patient evaluated by PT and OT, recommending ECF. Son disagrees and would like to see how much the patient progresses as he gets better. Unsure why patient is not on ASA or -statin, will reach out to son. FU PT/OT/ST 4. Hypertension: BP 130/65. Continue Lisinopril 10 mg PO QD, Metoprolol 25 mg PO BID. Monitor vitals, adjust medications as necessary. 5. DVT/GI Prophylaxis: Lovenox 40 mg SUBCUT QD. Protonix 40 mg PO QD. Patient is being treated for HCAP. He requires 5L NS to maintain O2 sat > 92%. Will follow video swallow. Pending clinical improvement.
[2018-03-23] MEDS ORDERED: LEVOFLOXACIN 750MG-D5W PMX 750 MG in DEXTROSE/WATER 1 150ML.BAG IVPB SCH (16:00)
[2018-03-23] MEDS: traZODone HCL 50 MG TAB PO SCH (20:52)
[2018-03-23] MEDS: MELATONIN 5 MG TABLET PO SCH (20:52)
[2018-03-24] MEDS: IPRATROPIUM-ALBUTEROL 3 ML NEB INHALATION SCH ×4 (08:37→20:54)
[2018-03-24] MEDS: PIPERACILLIN-TAZOBACTAM 3.375 GM in DEXTROSE/WATER 1 50ML.BAG IVPB SCH ×3 (10:04→23:21)
[2018-03-24] MEDS: ENOXAPARIN 40 MG/0.4 ML SYRINGE SQ SCH (10:05)
[2018-03-24] MEDS: levETIRAcetam IV 1,000 MG in SALINE 1 100ML.BAG IVPB SCH ×2 (11:42→21:59)
[2018-03-24] MEDS: DEXTROSE 5%-0.9% NACL 1,000 ML IV SCH ×2 (13:43→21:59)
[2018-03-24] MEDS: ESCITALOPRAM 10 MG TAB PO SCH (13:43)
[2018-03-24] MEDS: PANTOPRAZOLE 40 MG TABLET PO SCH (13:43)
[2018-03-24] MEDS: LISINOPRIL 10 MG TAB PO SCH (13:44)
[2018-03-24] MEDS: FUROSEMIDE 40 MG TAB PO SCH (13:44)
[2018-03-24] MEDS: METOPROLOL TARTRATE 25 MG TAB PO SCH ×2 (13:44→22:00)
--- NOTE | 2018-03-24 13:57 | P.PN ---
Subjective Progress Note Date: 03/24/18 Principal diagnosis: Pneumonia, dysphasia Patient was seen and examined. No acute events overnight. Patient is able to speak in one-word sentences. He has no complaints today. He denies any shortness of breath. He is pending swallow evaluation. He is nothing by mouth. Objective - Vital Signs Vital signs: Vital Signs Temp 96.9 F L 03/24/18 12:28 Pulse 88 03/24/18 12:43 Resp 18 03/24/18 12:28 BP 131/68 03/24/18 12:28 Pulse Ox 92 L 03/24/18 12:28 Intake & Output 03/23/18 03/24/18 03/24/18 18:59 06:59 18:59 Other: Voiding Method Diaper Diaper Diaper # Voids 4 4 - Exam General: [non toxic], [no distress], [appears at stated age] Derm: [warm], [dry] Head: [atraumatic], [normocephalic], [symmetric] Eyes: [EOMI], [no lid lag], [anicteric sclera] Mouth: [no lip lesion], [mucus membranes moist] Cardiovascular: [S1S2 reg], [no murmur], [positive DP pulse bilateral] Lungs: [Clear breath sounds bilaterally with good air movement and poor effort] , [no rhonchi, no rales] , [no accessory muscle use] Abdominal: [soft], [ nontender to palpation], [no guarding], [no appreciable organomegaly] Ext: [no gross muscle atrophy], [1+ edema], [no contractures] Psych: [Alert], [oriented], [appropriate affect] - Labs CBC & Chem 7: 03/22/18 09:22 03/21/18 13:50 Labs: Microbiology - Last 24 Hours (Table) 03/21/18 13:50 Blood Culture - Preliminary Blood No Growth after 48 hours Assessment and Plan Assessment: Assessment and Plan 1. Pneumonia: Seen on CXR. Since he has been admitted within the last 3 months for IV antibiotics, I will treat him for HCAP. Tylenol 650 mg PO Q6 PRN for fever. DuoNeb QID scheduled. Continue Levofloxacin 750 mg IV QD and Pipercillin/ Tazobactam 3.375g IV TID. Mucinex 600 mg PO BID. BCx negative at 48H. O2 per NC to maintain O2 sat > 92%. FU BCx (final), Sputum Cx 2. Dysphagia: Failed speech therapy evaluation. Change all by mouth medications to IV if possible. FU Video swallow (today), ST recommendations 3. h/o CVA: Patient evaluated by PT and OT, recommending ECF. Son disagrees and would like to see how much the patient progresses as he gets better. Unsure why patient is not on ASA or -statin, will reach out to son. FU PT/OT/ST 4. Hypertension: BP 131/68. Continue Lisinopril 10 mg PO QD, Metoprolol 25 mg PO BID. Monitor vitals, adjust medications as necessary. 5. DVT/GI Prophylaxis: Lovenox 40 mg SUBCUT QD. Protonix 40 mg PO QD. Patient is being treated for HCAP. He requires 5L NS to maintain O2 sat > 92%. Will follow video swallow. Pending clinical improvement.
--- NOTE | 2018-03-24 14:46 | FL ---
Modified barium swallow. HISTORY: Dysphagia. Modified barium swallow was performed with the department of speech pathology. The patient was prese nted with various consistencies of barium. There is no evidence for aspiration. Mild transient penetration with thin liquid barium. Full report is to follow from the department of speech pathology. Impression: Mild transient penetration with thin liquid barium.
[2018-03-24] MEDS: MELATONIN 5 MG TABLET PO SCH (21:59)
[2018-03-24] MEDS: traZODone HCL 50 MG TAB PO SCH (22:00)
[2018-03-25] MEDS: IPRATROPIUM-ALBUTEROL 3 ML NEB INHALATION SCH ×4 (08:25→20:18)
[2018-03-25 08:43] LABS: HCT 37.9 % (39.0-53.0); HGB 12.6 gm/dL (13.0-17.5); MCH 32.4 pg (25.0-35.0); MCHC 33.2 g/dL (31.0-37.0); MCV 97.4 fL (80.0-100.0); Mean Platelet Volume 7.5; Platelet Count 162 k/uL (150-450); RBC 3.89 m/uL (4.30-5.90); RDW 12.8 % (11.5-15.5); WBC 6.6 k/uL (3.8-10.6)
[2018-03-25 08:52] LABS: Potassium 3.7 mmol/L (3.5-5.1)
[2018-03-25] MEDS: PANTOPRAZOLE 40 MG TABLET PO SCH (10:03)
[2018-03-25] MEDS: PIPERACILLIN-TAZOBACTAM 3.375 GM in DEXTROSE/WATER 1 50ML.BAG IVPB SCH ×3 (10:03→23:29)
[2018-03-25] MEDS: ENOXAPARIN 40 MG/0.4 ML SYRINGE SQ SCH (10:04)
[2018-03-25] MEDS: levETIRAcetam IV 1,000 MG in SALINE 1 100ML.BAG IVPB SCH ×2 (10:04→21:09)
[2018-03-25] MEDS: ESCITALOPRAM 10 MG TAB PO SCH (10:04)
[2018-03-25] MEDS: METOPROLOL TARTRATE 25 MG TAB PO SCH ×2 (10:05→21:09)
[2018-03-25] MEDS: LISINOPRIL 10 MG TAB PO SCH (10:05)
[2018-03-25] MEDS: DEXTROSE 5%-0.9% NACL 1,000 ML IV SCH ×3 (10:09→23:30)
--- NOTE | 2018-03-25 13:07 | P.PN ---
Subjective Progress Note Date: 03/25/18 Principal diagnosis: Pneumonia, dysphagia Patient was seen and examined. No acute events overnight. Son and son's is at bedside this morning. Patient is seen sitting up, eating lunch. Patient reports great improvement in his breathing. Son also reports great improvement in his dad, 75% back to normal. Son states that patient was able to walk from his bed to the entrance of the room and back without any difficulties. He will get a portable oxygen tank at some point today in order to walk further distances. Swallow study done yesterday, able to tolerate dysphagia 3 diet. Objective - Vital Signs Vital signs: Vital Signs Temp 98.2 F 03/25/18 12:39 Pulse 57 L 03/25/18 12:39 Resp 18 03/25/18 12:39 BP 173/73 03/25/18 12:39 Pulse Ox 95 03/25/18 12:39 Intake & Output 03/24/18 03/25/18 03/25/18 18:59 06:59 18:59 Intake Total 1200 Balance 1200 Intake: Intake, IV Titration 1200 Amount Dextrose 5%-0.9% NaCl 1, 1150 000 ml @ 100 mls/hr IV . Q10H [facility] Rx#:[id number] Piperacillin-Tazobactam 3 50 .375 gm In Dextrose/Water 1 50ml.bag @ 12.5 mls/hr IVPB Q8HR [facility] Rx#: [id number] Other: Voiding Method Diaper Diaper Diaper # Voids 1 # Bowel Movements 1 - Exam General: [non toxic], [no distress], [appears at stated age] Derm: [warm], [dry] Head: [atraumatic], [normocephalic], [symmetric] Eyes: [EOMI], [no lid lag], [anicteric sclera] Mouth: [no lip lesion], [mucus membranes moist] Cardiovascular: [S1S2 reg], [no murmur], [positive DP pulse bilateral] Lungs: [Clear breath sounds bilaterally with good air movement and poor effort] , [no rhonchi, no rales] , [no accessory muscle use] Abdominal: [soft], [ nontender to palpation], [no guarding], [no appreciable organomegaly] Ext: [no gross muscle atrophy], [no edema], [no contractures] Psych: [Alert], [oriented], [appropriate affect] - Labs CBC & Chem 7: 03/25/18 08:14 03/25/18 08:14 Labs: Abnormal Lab Results - Last 24 Hours (Table) 03/25/18 03/25/18 Range/Units 08:14 08:14 RBC 3.89 L (4.30-5.90) m/uL Hgb 12.6 L (13.0-17.5) gm/dL Hct 37.9 L (39.0-53.0) % Chloride 110 H (98-107) mmol/L Glucose 116 H (74-99) mg/dL Calcium 8.0 L (8.4-10.2) mg/dL Microbiology - Last 24 Hours (Table) 03/24/18 10:30 Gram Stain - Preliminary Sputum 03/21/18 13:50 Blood Culture - Preliminary Blood No Growth after 72 hours Assessment and Plan Assessment: Assessment and Plan 1. Pneumonia: Seen on CXR. Since he has been admitted within the last 3 months for IV antibiotics, I will treat him for HCAP. Tylenol 650 mg PO Q6 PRN for fever. DuoNeb QID scheduled. Continue Levofloxacin 750 mg IV QD and Pipercillin/ Tazobactam 3.375g IV TID. Mucinex 600 mg PO BID. BCx negative at 72H. Sputum Cx prelim negative. O2 per NC to maintain O2 sat > 92%. FU BCx (final), Sputum Cx 2. Dysphagia: NDD3 as per ST. Passed video swallow yesterday. 3. h/o CVA: Patient evaluated by PT and OT, recommending ECF. Son disagrees and would like to see how much the patient progresses as he gets better. Unsure why patient is not on ASA or -statin, will reach out to son. FU PT/OT/ST 4. Hypertension: BP 173/73. Continue Lisinopril 10 mg PO QD, Metoprolol 25 mg PO BID. Monitor vitals, adjust medications as necessary. 5. DVT/GI Prophylaxis: Lovenox 40 mg SUBCUT QD. Protonix 40 mg PO QD. Patient is being treated for HCAP. He requires 2L NC to maintain O2 sat > 92%. Patient is greatly improved since admission. Anticipated discharge in the next 2 days. Will need 6 minute walk test prior to DC. Needs PT re-eval.
[2018-03-25] MEDS: LEVOFLOXACIN 750MG-D5W PMX 750 MG in DEXTROSE/WATER 1 150ML.BAG IVPB SCH (15:59)
--- NOTE | 2018-03-25 17:31 | XR ---
EXAMINATION TYPE: XR chest 2V DATE OF EXAM: 03/25/2018 COMPARISON: 03/22/2018 HISTORY: Pneumonia TECHNIQUE: Frontal and lateral views of the chest are obtained. FINDINGS: There is some pulmonary vascular congestion. there is blunting of the costophrenic angles . Heart is top normal in size. Bony thorax appears intact. IMPRESSION: There is new congestive heart failure compared to last exam. Small pleural effusions. Ri ght lower lobe pneumonia is possible.
[2018-03-25] MEDS: MELATONIN 5 MG TABLET PO SCH (21:09)
[2018-03-25] MEDS: traZODone HCL 50 MG TAB PO SCH (21:09)
[2018-03-26] MEDS: PIPERACILLIN-TAZOBACTAM 3.375 GM in DEXTROSE/WATER 1 50ML.BAG IVPB SCH ×2 (08:12→16:28)
[2018-03-26] MEDS: PANTOPRAZOLE 40 MG TABLET PO SCH (08:12)
[2018-03-26] MEDS: LISINOPRIL 10 MG TAB PO SCH (08:13)
[2018-03-26] MEDS: METOPROLOL TARTRATE 25 MG TAB PO SCH ×2 (08:13→20:48)
[2018-03-26] MEDS: ENOXAPARIN 40 MG/0.4 ML SYRINGE SQ SCH (08:13)
[2018-03-26] MEDS: LEVOFLOXACIN 750MG-D5W PMX 750 MG in DEXTROSE/WATER 1 150ML.BAG IVPB SCH (08:13)
[2018-03-26] MEDS: ESCITALOPRAM 10 MG TAB PO SCH (08:13)
[2018-03-26] MEDS: levETIRAcetam IV 1,000 MG in SALINE 1 100ML.BAG IVPB SCH ×2 (08:20→20:47)
[2018-03-26] MEDS: IPRATROPIUM-ALBUTEROL 3 ML NEB INHALATION SCH ×4 (08:32→21:05)
[2018-03-26] MEDS ORDERED: FUROSEMIDE 10 MG/ML 4 ML VIAL IV STA (15:29)
--- NOTE | 2018-03-26 16:05 | P.PN ---
Subjective Progress Note Date: 03/26/18 Principal diagnosis: Pneumonia Patient was seen and examined. No acute events overnight. Brother at bedside. Patient reports improved breathing. Saturating 94% on 1L NC. Objective - Vital Signs Vital signs: Vital Signs Temp 97.8 F 03/26/18 12:22 Pulse 68 03/26/18 12:22 Resp 17 03/26/18 12:22 BP 153/59 03/26/18 12:22 Pulse Ox 99 03/26/18 12:22 Intake & Output 03/25/18 03/26/18 03/26/18 18:59 06:59 18:59 Intake Total 150 1010 300 Balance 150 1010 300 Intake: Intake, IV Titration 150 1010 300 Amount Dextrose 5%-0.9% NaCl 1, 960 000 ml @ 100 mls/hr IV . Q10H [facility] Rx#:[id number] Levofloxacin 750Mg-D5w 150 Pmx 750 mg In Dextrose/ Water 1 150ml.bag @ 100 mls/hr IVPB Q24HR [facility] Rx# :[id number] Piperacillin-Tazobactam 3 50 50 50 .375 gm In Dextrose/Water 1 50ml.bag @ 12.5 mls/hr IVPB Q8HR [facility] Rx#: [id number] levETIRAcetam IV 1,000 mg 100 100 In Saline 1 100ml.bag @ 400 mls/hr IVPB Q12HR [facility] Rx#:[id number] Other: Voiding Method Diaper Toilet Toilet Diaper Urinal Diaper # Voids 1 - Exam General: [non toxic], [no distress], [appears at stated age] Derm: [warm], [dry] Head: [atraumatic], [normocephalic], [symmetric] Eyes: [EOMI], [no lid lag], [anicteric sclera] Mouth: [no lip lesion], [mucus membranes moist] Cardiovascular: [S1S2 reg], [no murmur], [positive DP pulse bilateral] Lungs: [Clear breath sounds bilaterally with good air movement and poor effort] , [no rhonchi, no rales] , [no accessory muscle use] Abdominal: [soft], [ nontender to palpation], [no guarding], [no appreciable organomegaly] Ext: [no gross muscle atrophy], [no edema], [no contractures] Psych: [Alert], [oriented], [appropriate affect] - Labs CBC & Chem 7: 03/25/18 08:14 03/25/18 08:14 Labs: Microbiology - Last 24 Hours (Table) 03/24/18 10:30 Gram Stain - Preliminary Sputum Sputum Culture - Final Alba albicans 03/21/18 13:50 Blood Culture - Preliminary Blood No Growth after 96 hours Assessment and Plan Assessment: Assessment and Plan 1. Pneumonia: Seen on CXR. Most recent CXR shows pleural effusions with findings of CHF. Since he has been admitted within the last 3 months for IV antibiotics, I will treat him for HCAP. Tylenol 650 mg PO Q6 PRN for fever. DuoNeb QID scheduled. Continue Levofloxacin 750 mg IV QD and Pipercillin/ Tazobactam 3.375g IV TID. Mucinex 600 mg PO BID. BCx negative at 120H. Sputum Cx grows Alba, normal respiratory jerry. O2 per NC to maintain O2 sat > 92%. FU BCx (final) 2. Dysphagia: NDD3 as per ST. Passed video swallow yesterday. 3. h/o CVA: Patient evaluated by PT and OT, recommending ECF. Son disagrees and would like to see how much the patient progresses as he gets better. Unsure why patient is not on ASA or -statin, will reach out to son. FU PT/OT/ST 4. Hypertension: BP 153/59. Continue Lisinopril 10 mg PO QD, Metoprolol 25 mg PO BID. Monitor vitals, adjust medications as necessary. 5. DVT/GI Prophylaxis: Lovenox 40 mg SUBCUT QD. Protonix 40 mg PO QD. Patient is being treated for HCAP. He requires 1L NC to maintain O2 sat > 92%. Patient is greatly improved since admission. Anticipated discharge in the next 1-2 days. Will need 6 minute walk test prior to DC. Needs PT re-eval.
[2018-03-26] MEDS: DEXTROSE 5%-0.9% NACL 1,000 ML IV SCH (16:20)
[2018-03-26] MEDS: MELATONIN 5 MG TABLET PO SCH (20:48)
[2018-03-26] MEDS: traZODone HCL 50 MG TAB PO SCH (20:48)
[2018-03-26 21:05] VITALS: RESP 16
[2018-03-27] MEDS: PIPERACILLIN-TAZOBACTAM 3.375 GM in DEXTROSE/WATER 1 50ML.BAG IVPB SCH ×3 (00:50→17:34)
[2018-03-27] MEDS: IPRATROPIUM-ALBUTEROL 3 ML NEB INHALATION SCH ×3 (07:13→15:48)
[2018-03-27] MEDS: LEVOFLOXACIN 750MG-D5W PMX 750 MG in DEXTROSE/WATER 1 150ML.BAG IVPB SCH (08:07)
[2018-03-27] MEDS: METOPROLOL TARTRATE 25 MG TAB PO SCH (08:07)
[2018-03-27] MEDS: ENOXAPARIN 40 MG/0.4 ML SYRINGE SQ SCH (08:08)
[2018-03-27] MEDS: PANTOPRAZOLE 40 MG TABLET PO SCH (08:08)
[2018-03-27] MEDS: ESCITALOPRAM 10 MG TAB PO SCH (08:08)
[2018-03-27] MEDS: FUROSEMIDE 40 MG TAB PO SCH (08:08)
[2018-03-27] MEDS: LISINOPRIL 10 MG TAB PO SCH (08:08)
[2018-03-27] MEDS: levETIRAcetam IV 1,000 MG in SALINE 1 100ML.BAG IVPB SCH (10:47)
[2018-03-27 14:44] VITALS: BP 122/60; TEMP 97.5
[2018-03-27 16:04] VITALS: PULSE 87
--- NOTE | 2018-03-27 16:36 | P.DS ---
Providers Date of admission: 03/21/18 15:14 Attending physician: Donna Varghese MD Primary care physician: [facility] Course: Vision is an 88-year-old male with a past medical history of hypertension, seizure disorder, CVAs, and prostate CA status post radiation who presented to the ED for complaints of productive cough. Patient is a resident of a foster custodial where he was evaluated and was found to be hypoxic. In the ED, the patient was found to be hypoxic, with leukocytosis of 15, and chest x-ray showing possible pneumonia. The patient was subsequently admitted for management of healthcare associated pneumonia. The patient was noted to be coughing and chocking on liquids. Speech therapy was consulted and patient was scheduled for video swallowing study which found the patient to be tolerating the dysphagia 3 diet. The patient's mental status gradually improved. PT/OT evaluated the patient and recommended rehab placement. The patient is presently stable and ready for discharge to rehab facility. Physical Examination General: Awake, alert, in no acute distress HEENT: NC/AT, anicteric sclerae, moist conjunctiva, no lid-lag, PERRLA, oropharynx clear, no erythema, exudates Cardiovascular: S1/S2 wnl, no murmurs, rubs, or gallops Lungs: Clear to auscultation, normal respiratory effort, no accessory muscle use Abdominal: Soft, nontender, non-distended, no guarding, rebound, or rigidity, normoactive bowel sounds Skin: Warm, dry Extremities: No edema or contractures Psychiatric: Alert and oriented to person, place and time, appropriate affect, Intact judgment Neuro: CN II-XI grossly intact, sensation to light touch grossly present throughout, no focal sensory deficits, moderate UE temors osiel noted, some rigidity Discharge diagnosis:HCAP, Dysphagia, HTN, Hx of CVA A total of 60 minutes of time were spent preparing this complex discharge summary. Patient Condition at Discharge: Fair Plan - Discharge Summary Discharge Rx Participant: No New Discharge Prescriptions: New guaiFENesin [Mucinex] 600 mg PO Q12HR PRN tablet.er PRN Reason: Congestion HYDROcodone/APAP 5-325MG [[place] 5-325] 1 each PO Q4HR PRN #15 tab PRN Reason: Moderate Pain Ipratropium-Albuterol Nebulize [Duoneb 0.5 mg-3 mg/3 ml Soln] 3 ml INHALATION RT-QID ampul.neb Levofloxacin [Levaquin] 750 mg PO DAILY@1600 5 Days tab Pantoprazole [Protonix] 40 mg PO AC-BRKFST tablet. Continue Calcium Carbonate/Vitamin D3 [Calcium 600-Vit D3 800 Tab] 1 tab PO DAILY Lisinopril [Zestril] 10 mg PO DAILY #30 tab Metoprolol Tartrate [Lopressor] 25 mg PO BID #60 tab levETIRAcetam [Keppra] 1,000 mg PO Q12HR #120 tab Furosemide [Lasix] 40 mg PO MOWEFR #30 tablet traZODone HCL 50 mg PO HS Cholecalciferol [Vitamin D3] 400 unit PO DAILY Escitalopram [Lexapro] 10 mg PO DAILY Melatonin 10 mg PO HS Discharge Medication List Calcium Carbonate/Vitamin D3 [Calcium 600-Vit D3 800 Tab] 1 tab PO DAILY [History] Lisinopril [Zestril] 10 mg PO DAILY #30 tab 02/08/17 [Rx] Metoprolol Tartrate [Lopressor] 25 mg PO BID #60 tab 02/08/17 [Rx] levETIRAcetam [Keppra] 1,000 mg PO Q12HR #120 tab 06/15/17 [Rx] Furosemide [Lasix] 40 mg PO MOWEFR #30 tablet 12/29/17 [Rx] Cholecalciferol [Vitamin D3] 400 unit PO DAILY 03/21/18 [History] Escitalopram [Lexapro] 10 mg PO DAILY 03/21/18 [History] Melatonin 10 mg PO HS 03/21/18 [History] traZODone HCL 50 mg PO HS 03/21/18 [History] HYDROcodone/APAP 5-325MG [[place] 5-325] 1 each PO Q4HR PRN #15 tab 03/27/18 [Rx] Ipratropium-Albuterol Nebulize [Duoneb 0.5 mg-3 mg/3 ml Soln] 3 ml INHALATION RT -QID ampul.neb 03/27/18 [Rx] Levofloxacin [Levaquin] 750 mg PO DAILY@1600 5 Days tab 03/27/18 [Rx] Pantoprazole [Protonix] 40 mg PO AC-BRKFST tablet. 03/27/18 [Rx] guaiFENesin [Mucinex] 600 mg PO Q12HR PRN tablet.er 03/27/18 [Rx] Follow up Appointment(s)/Referral(s): Luis Armando Hernandez MD [Primary Care Provider] - 1-2 days Activity/Diet/Wound Care/Special Instructions: Dysphagia 3 diet Discharge Disposition: TRANSFER TO SNF/ECF
[2018-03-28] MEDS ORDERED: LEVOFLOXACIN 750 MG TAB PO SCH (16:00)
== END 2018-03-27 17:38 | DRG 194 ==
LOC: EC 12:29 → 3NMEDONC 15:14
PROVIDERS: ADMIT Family Medicine; ATTEND Family Medicine
DX: J18.9 Pneumonia, unspecified organism (principal); J44.1 Chronic obstructive pulmonary disease with (acute) exacerbation; J44.0 Chronic obstructive pulmonary disease with (acute) lower respiratory infection; J90 Pleural effusion, not elsewhere classified; I11.0 Hypertensive heart disease with heart failure; I50.9 Heart failure, unspecified; R13.10 Dysphagia, unspecified; I69.320 Aphasia following cerebral infarction; I69.321 Dysphasia following cerebral infarction; I69.391 Dysphagia following cerebral infarction; G40.909 Epilepsy, unspecified, not intractable, without status epilepticus; Y95 Nosocomial condition; R40.2142 Coma scale, eyes open, spontaneous, at arrival to emergency department; R40.2362 Coma scale, best motor response, obeys commands, at arrival to emergency department; R40.2252 Coma scale, best verbal response, oriented, at arrival to emergency department; R09.02 Hypoxemia; N40.0 Benign prostatic hyperplasia without lower urinary tract symptoms; G31.84 Mild cognitive impairment of uncertain or unknown etiology; Z79.899 Other long term (current) drug therapy; Z87.19 Personal history of other diseases of the digestive system; Z87.440 Personal history of urinary (tract) infections; Z85.46 Personal history of malignant neoplasm of prostate; Z92.3 Personal history of irradiation; Z98.42 Cataract extraction status, left eye; Z98.41 Cataract extraction status, right eye; Z96.1 Presence of intraocular lens; Z82.3 Family history of stroke; Z80.43 Family history of malignant neoplasm of testis
CPT/HCPCS: 36415; 71046; 74230; 80048; 80053; 82550; 82553; 83735; 83880; 84484; 85025; 85027; 85610; 85730; 87040; 87070; 87205; 87502; 93005; 94640; 94760; 99285

== ENCOUNTER 2018-11-17 13:44 | Emergency (ER) | payer MEDICARE, BC ==
[2018-11-17 13:50] VITALS: RESP 18
--- NOTE | 2018-11-17 14:49 | ED ---
Fall HPI - General Chief Complaint: Fall Stated Complaint: Fall Time Seen by Provider: 11/17/18 14:11 Source: patient, EMS, RN notes reviewed, old records reviewed Mode of arrival: EMS - History of Present Illness Initial Comments: Patient is a 8-year-old male history of memory impairment, and previous brain bleed 2 years ago. He presents today after a fall from a systemic care facility. Patient was reportedly came back from lunch, was found on the ground. Patient's caregiver states that he did likely at his head. He denies any pains at this time. Patient states that he has chronic sided right-sided weakness since the brain bleed. Family reports he is at his baseline mental status. - Related Data Home Medications Medication Instructions Recorded Confirmed Calcium Carbonate/Vitamin D3 1 tab PO DAILY 02/04/17 03/21/18 [Calcium 600-Vit D3 800 Tab] Cholecalciferol [Vitamin D3] 400 unit PO DAILY 03/21/18 03/21/18 Escitalopram [Lexapro] 10 mg PO DAILY 03/21/18 03/21/18 Melatonin 10 mg PO HS 03/21/18 03/21/18 traZODone HCL 50 mg PO HS 03/21/18 03/21/18 Previous Rx's Medication Instructions Recorded Lisinopril [Zestril] 10 mg PO DAILY #30 tab 02/08/17 Metoprolol Tartrate [Lopressor] 25 mg PO BID #60 tab 02/08/17 levETIRAcetam [Keppra] 1,000 mg PO Q12HR #120 tab 06/15/17 Furosemide [Lasix] 40 mg PO MOWEFR #30 tablet 12/29/17 Ipratropium-Albuterol Nebulize 3 ml INHALATION RT-QID ampul.neb 03/27/18 [Duoneb 0.5 mg-3 mg/3 ml Soln] Levofloxacin [Levaquin] 750 mg PO DAILY@1600 5 Days tab 03/27/18 Pantoprazole [Protonix] 40 mg PO AC-BRKFST tablet. 03/27/18 guaiFENesin [Mucinex] 600 mg PO Q12HR PRN tablet.er 03/27/18 Allergies Allergy/AdvReac Type Severity Reaction Status Date / Time No Known Allergies Allergy Verified 11/17/18 13:50 Review of Systems ROS Statement: Those systems with pertinent positive or pertinent negative responses have been documented in the HPI. ROS Other: All systems not noted in ROS Statement are negative. Past Medical History Past Medical History: CVA/TIA, GI Bleed, Hypertension, Memory Impairment, Pneumonia, Prostate Disorder, Seizure Disorder Additional Past Medical History / Comment(s): limited historian: stroke May 30, 2016. per family pt ambulates with walker and assistance of , uti, 2016 had cva and difficulting swallowing-had a peg tube inserted. by august 2016 pt improved and was able to swallow so it was removed .enlarged prostate(hx turp) and 2009 had prostate cancer(no sx just raditaion),hemorrhoids, indentation in skull-was kicked in head by horse when as a child", cataracts(sx-lens implants). per pt's son-pt had a pne vaccine just few weeks ago write unable to verify date at this time History of Any Multi-Drug Resistant Organisms: None Reported Past Surgical History: Heart Catheterization, Prostate Surgery Additional Past Surgical History / Comment(s): cataracts removed-lens implants.peg tube-since removed,turp, Past Anesthesia/Blood Transfusion Reactions: No Reported Reaction Additional Past Anesthesia/Blood Transfusion Reaction / Comment(s): per pt's son -pt resides at [facility] in [facility] [place] [phone]. call person at [facility] is brian swartz. Past Psychological History: No Psychological Hx Reported Smoking Status: Never smoker Past Alcohol Use History: None Reported Past Drug Use History: None Reported - Past Family History Mother Family Medical History: CVA/TIA Father Family Medical History: No Reported History, Unable to Obtain Brother(s) Family Medical History: Cancer Additional Family Medical History / Comment(s): testicular cancer. General Exam - General Exam Comments Initial Comments: This is an 88-year-old male. Limitations: no limitations General appearance: alert, in no apparent distress Head exam: Present: atraumatic, normocephalic, normal inspection Eye exam: Present: normal appearance, PERRL, EOMI. Absent: scleral icterus, conjunctival injection, periorbital swelling ENT exam: Present: normal exam Neck exam: Present: normal inspection. Absent: tenderness, meningismus, lymphadenopathy Respiratory exam: Present: normal lung sounds bilaterally. Absent: respiratory distress, wheezes, rales, rhonchi, stridor Cardiovascular Exam: Present: regular rate, normal rhythm, normal heart sounds. Absent: systolic murmur, diastolic murmur, rubs, gallop, clicks GI/Abdominal exam: Present: soft, normal bowel sounds. Absent: distended, tenderness, guarding, rebound, rigid Extremities exam: Present: normal inspection, full ROM, normal capillary refill. Absent: tenderness, pedal edema, joint swelling, calf tenderness Back exam: Present: normal inspection Neurological exam: Present: alert, oriented X3, CN II-XII intact Psychiatric exam: Present: normal affect, normal mood Skin exam: Present: warm, dry, intact, normal color. Absent: rash Course Vital Signs 11/17/18 11/17/18 13:44 15:41 Temperature 98.4 F Pulse Rate 60 57 L Respiratory 18 18 Rate Blood Pressure 173/74 159/63 O2 Sat by Pulse 95 98 Oximetry Medical Decision Making - Radiology Data Radiology results: report reviewed No acute fracture dislocation. No hemorrhage mass effect or midline shift is noted. Disposition Clinical Impression: Fall, Head injury Disposition: HOME SELF-CARE Condition: Good Instructions (If sedation given, give patient instructions): Fall Prevention for Older Adults (ED) Additional Instructions: Patient is a monitor 24-48 hours. There is any signs of altered mental status to return to emergency department at once. Patient should've close follow-up with primary care doctor. Is patient prescribed a controlled substance at d/c from ED?: No Referrals: Luis Armando Hernandez MD [Primary Care Provider] - 1-2 days Time of Disposition: 15:59
--- NOTE | 2018-11-17 15:32 | CT ---
EXAMINATION TYPE: CT brain cspine wo con DATE OF EXAM: 11/17/2018 COMPARISON: CT brain 12/27/2017 HISTORY: Trauma/hx brain bleed, pain CT DLP: 1686.1 mGycm Automated exposure control for dose reduction was used. TECHNIQUE: CT scan of the head and cervical spine are performed without contrast. FINDINGS: There is no acute intracranial hemorrhage, mass effect, or midline shift identified. The ventricles and sulci are within normal limits in size. White matter low-attenuation, cortical atroph y, frontal encephalomalacia on the left are stable findings. There are cerebral vascular calcificatio ns. The globes are intact and the visualized sinuses are clear. Cervical spine is visualized in its entirety from C1 through upper thoracic levels and demonstrates s atisfactory alignment without evidence of acute fracture or dislocation. Prevertebral soft tissue ap pears within normal limits. There is multilevel spondylosis, loss of disc height at the intervertebr al levels. Multilevel facet arthropathy and foraminal encroachment. The C1-C2 articulation is unremar kable. IMPRESSION: 1. There is no acute fracture or dislocation evident in the cervical spine. 2. No acute intracranial hemorrhage, mass effect, or midline shift is seen.
[2018-11-17 16:41] VITALS: BP 190/79; PULSE 52; TEMP 98.1
== END 2018-11-17 16:38 | disposition home or self-care (01) ==
LOC: EC 13:44
DX: S09.90XA Unspecified injury of head, initial encounter (principal); N40.0 Benign prostatic hyperplasia without lower urinary tract symptoms; Z86.73 Personal history of transient ischemic attack (TIA), and cerebral infarction without residual deficits; Z85.46 Personal history of malignant neoplasm of prostate; Z79.899 Other long term (current) drug therapy; W19.XXXA Unspecified fall, initial encounter; Y92.009 Unspecified place in unspecified non-institutional (private) residence as the place of occurrence of the external cause
CPT/HCPCS: 70450; 72125; 99284